=== PATIENT | female | born 1960 | race Caucasian/White ===

== ENCOUNTER 2018-09-22 16:27 | Inpatient (IN) | payer BC ==
[~2018-09-22 16:27] MED LIST: DEXAMETHASONE SOD PHOSPHATE INJ 4 MG/1 ML VIAL ONE; ONDANSETRON HCL INJ/PF 4 MG/2 ML SDV ONE; SUCCINYLCHOLINE CHLORIDE INJ 200 MG/10 ML VIAL ONE
[2018-09-22] MEDS ORDERED: NORMAL SALINE 1000 ML 1,000 ML IV ONE (18:43)
[2018-09-22] MEDS ORDERED: ACETAMINOPHEN 325 MG TABLET PO ONE (18:43)
--- NOTE | 2018-09-22 18:46 | ER Document Report ---
ED Medical Screen (RME) - General Chief Complaint: Hand Swelling Stated Complaint: PAIN, SWELLING,REDNESS/BOTH HANDS Time Seen by Provider: 09/22/18 18:43 Mode of Arrival: Ambulatory Information source: Patient Notes: Patient presents with bilateral hand pain swelling and erythema. Patient is currently being treated as an inpatient at the [facility]. Patient states that 4 days ago she took a needle and tahir up water and dirt that was in the bathtub mixed a solution and injected into bilateral hands. Patient reports fever of 101 yesterday. Patient was placed on Bactrim and has had 3 doses of the medication thus far. I have greeted and performed a rapid initial assessment of this patient. A comprehensive ED assessment and evaluation of the patient, analysis of test results and completion of the medical decision making process will be conducted by additional ED providers. TRAVEL OUTSIDE OF THE [place] IN LAST 30 DAYS: No - Related Data Allergies/Adverse Reactions: No Known Allergies Allergy (Unverified 09/22/18 16:29) Physical Exam - Vital signs Vitals: Temp Pulse Resp BP Pulse Ox 99.5 F 117 H 20 137/91 H 100 09/22/18 16:32 09/22/18 16:32 09/22/18 16:32 09/22/18 16:32 09/22/18 16:32 - Extremities General upper extremity: Edema - Bilateral hand pain and swelling with erythema and fluctuant abscess to dorsal aspect of both hands. Course - Vital Signs Vital signs: Temp Pulse Resp BP Pulse Ox 99.5 F 117 H 20 137/91 H 100 09/22/18 16:32 09/22/18 16:32 09/22/18 16:32 09/22/18 16:32 09/22/18 16:32
[2018-09-22 19:16] LABS: ABSOLUTE BASOPHILS # (AUTO) 0.1 10^3/uL (0.0-0.2); ABSOLUTE EOSINOPHILS # (AUTO) 0.1 10^3/uL (0.0-0.6); ABSOLUTE LYMPHOCYTES (AUTO) 1.4 10^3/uL (0.5-4.7); ABSOLUTE MONOCYTES (AUTO) 1.2 10^3/uL (0.1-1.4); ABSOLUTE NEUT (AUTO) 11.8 10^3/uL (1.7-8.2); BASOPHILS % (AUTO) 0.6 % (0-2); EOSINOPHILS % (AUTO) 0.5 % (0-6); HEMATOCRIT 43.7 % (36.0-47.0); LYMPHOCYTES % (AUTO) 9.6 % (13-45); MEAN CORPUSCULAR HGB CONC 34.3 g/dL (32.0-36.0); MEAN CORPUSCULAR VOLUME 82 fl (80-97); MONOCYTES % (AUTO) 8.5 % (3-13); PLATELET COUNT 325 10^3/uL (150-450); RED BLOOD COUNT 5.36 10^6/uL (3.72-5.28); RED CELL DISTRIBUTION WIDTH 15.5 % (11.5-14.0); SEGMENTED NEUTROPHILS % (AUTO) 80.8 % (42-78); TOTAL CELLS COUNTED % (AUTO) 100 %; WHITE BLOOD COUNT 14.7 10^3/uL (4.0-10.5)
[2018-09-22 19:38] LABS: ANION GAP 15 (5-19); BLOOD UREA NITROGEN 16 mg/dL (7-20); CALCIUM 9.7 mg/dL (8.4-10.2); CARBON DIOXIDE 30 mmol/L (22-30); CHLORIDE 89 mmol/L (98-107); GLUCOSE 146 mg/dL (75-110); SODIUM 133.8 mmol/L (137-145)
[2018-09-22] MEDS ORDERED: POTASSIUM CHLORIDE 20 MEQ PACKET PO ONE (19:42)
--- NOTE | 2018-09-22 20:44 | ER Document Report ---
ED General - General Chief Complaint: Hand Swelling Stated Complaint: PAIN, SWELLING,REDNESS/BOTH HANDS Time Seen by Provider: 09/22/18 18:43 Mode of Arrival: Ambulatory Information source: Patient TRAVEL OUTSIDE OF THE [place] IN LAST 30 DAYS: No - HPI Patient complains to provider of: Bilateral hand infections Onset: Other - 4 nights ago Onset/Duration: Constant, Worse Quality of pain: Sharp, Throbbing Severity: Severe Pain Level: 4 Associated symptoms: Fever Exacerbated by: Movement Relieved by: Denies Similar symptoms previously: No Recently seen / treated by doctor: No Notes: 58-year-old female intentionally tried to inject herself to the hands with a concoction of tap water and soap scum because she wanted to come to the hospital. She states that she did not do it to kill herself. Dates that she has done this in the past. States that she did this 4 days ago and now has a fever and worsening redness and swelling in her hands - Related Data Allergies/Adverse Reactions: No Known Allergies Allergy (Unverified 09/22/18 16:29) Past Medical History - General Information source: Patient - Social History Smoking Status: Never Smoker Family History: Reviewed & Not Pertinent Review of Systems - Review of Systems Notes: Constitutional: Positive for fevers and chills EENT: No eye redness. No eye pain. No ear pain. No sore throat. Cardiovascular: No chest pain. No palpitations. Respiratory: No cough. No shortness of breath. No respiratory distress. Gastrointestinal: No abdominal pain. No nausea, vomiting, or diarrhea. Genitourinary: Atraumatic. No lesions. No pain. No discharge. Musculoskeletal: Positive for redness swelling and pain of the bilateral hands Skin: No rash or lesions. Lymphatic: No swollen lymph nodes. Neurologic: No headache. No syncope. Psychiatric: No suicidal or homicidal ideation. Physical Exam - Vital signs Vitals: Temp Pulse Resp BP Pulse Ox 99.5 F 117 H 20 137/91 H 100 09/22/18 16:32 09/22/18 16:32 09/22/18 16:32 09/22/18 16:32 09/22/18 16:32 - Notes Notes: General: Well-developed, well-nourished. In no acute distress. Non-toxic kemal earing. Cardiac: Well-perfused. Regular rate and rhythm. No murmurs, rubs, or gallops. Pulmonary: No respiratory distress. No cyanosis. Bilateral lung fiels are clear to auscultation. Abdominal: Non-distended. Non-rigid. Bowels sounds are present in all four quadrants. No guarding or rebound. HEENT: Head is atraumatic. Conjunctivae not reddened. No tearing. PERRL. EOMI. Orbits atraumatic. No periorbital swelling or erythema. Oropharynx is without erythema, swelling, or exudates. Neck: Supple. No adenopathy. No meningismus. Dermatologic: Warm with good turgor. No rash. Atraumatic. Chest: Atraumatic. No chest wall tenderness to palpation. Musculoskeletal: Bilateral hands with redness and swelling especially to the dorsal aspects. Fluctuant blister-like lesions to the dorsum of the right and left hands. Extensive swelling bilaterally. Distal neurovascular exam is intact Genitourinary: Examination deferred Neurologic: No gross neurologic deficits. Psychiatric: Normal mood. Course - Re-evaluation Re-evalutation: 09/22/18 21:[address] Cantu would like to make sure the patient does not have te nosynovitis or need surgery. He wants an MRI done or Ortho to see her to confirm this is not an immediate surgical case before he will admit. 09/22/18 23:11 Patient has been seen by Dr. knott. He has communicated to the hospitalist that he believes this is an abscess and cellulitis. It does sound like the patient will go to the operating room tomorrow to be cleaned out. I spoke with Dr. Cantu and the communication was received from the orthopod and he has accepted the admission. - Vital Signs Vital signs: Temp Pulse Resp BP Pulse Ox 99.5 F 117 H 20 137/91 H 100 09/22/18 16:32 09/22/18 16:32 09/22/18 16:32 09/22/18 16:32 09/22/18 16:32 - Laboratory Result Diagrams: 09/22/18 18:57 09/22/18 18:57 Laboratory results interpreted by me: 09/22/18 09/22/18 18:57 18:57 WBC 14.7 H RBC 5.36 H RDW 15.5 H Seg Neutrophils % 80.8 H Lymphocytes % 9.6 L Absolute Neutrophils 11.8 H Sodium 133.8 L Potassium 3.0 L* Chloride 89 L Glucose 146 H - Consults dr knott Time consulted: 21:10 Reason for consultation: 09/22/18 21:10 bilat hand infection Consulted provider: will come to ER Procedures - Incision and Drainage Incision and drainage right hand Time completed: 20:48 Type: Simple Anesthetic type: 1% Lidocaine mL's of anesthetic: 1 Blade size: 16 I&D procedure: Betadine prep applied Incision Method: Incision made by scalpel Amount/type of drainage: Copious yellow and green malodorous Notes: 09/22/18 20:58 Patient tolerated the procedure well. Incision and drainage left hand Type: Simple Anesthetic type: 1% Lidocaine mL's of anesthetic: 1 Blade size: 11 I&D procedure: Shurclens applied Incision Method: Incision made by scalpel Amount/type of drainage: copious Discharge - Discharge Clinical Impression: Hypokalemia, Cellulitis of hand Condition: Good Disposition: ADMITTED INPATIENT Admitting Provider: Pepe (Hospitalist) Unit Admitted: Medical Floor
[2018-09-22] MEDS ORDERED: MORPHINE SULFATE 10 MG/ML INJ IV ONE (21:05)
[2018-09-22] MEDS ORDERED: VANCOMYCIN HCL INJ 1000 MG VIAL IV ONE (21:05)
[2018-09-22] MEDS ORDERED: PIPERACILLIN/TAZOBACTAM 3.375 GM VIAL IV ONE (21:05)
[2018-09-22] MEDS ORDERED: ONDANSETRON HCL INJ/PF 4 MG/2 ML SDV IV ONE (21:06)
[2018-09-22] MEDS ORDERED: IPRATROPIUM/ALBUTEROL 0.5-2.5 MG/3 ML AMPUL NEB PRN (22:36)
[2018-09-22] MEDS ORDERED: ACETAMINOPHEN 325 MG TABLET PO PRN (22:36)
[2018-09-22] MEDS ORDERED: MAG HYDROX/AL HYDROX/SIMETH SUSP 30 ML UDCUP PO PRN (22:36)
--- NOTE | 2018-09-22 22:43 | PDOC CONSULTATION ---
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 She was seen by her primary care physician who was concerned about suicidal ideation and patient harming herself. She was admitted to the psychiatric facility but had increasing redness and swelling and pain in her hands. She noted a fever along with chills at the facility. She states it has worsened since yesterday. She also has noticed drainage with a foul odor. Patient notes history of diabetes and most recent A1c was 6.8. Pain 4/5 Past Medical History Cardiac Medical History: Reports: Hypertension Endocrine Medical History: Reports: Diabetes Mellitus Type 2 GI Medical History: Reports: Gastroesophageal Reflux Disease Psychiatric Medical History: Reports: Depression - anxiety Past Surgical History Past Surgical History: Reports: Tonsillectomy Social History Smoking Status: Never Smoker Family History Family History: Reviewed & Not Pertinent Parental Family History Reviewed: No Children Family History Reviewed: No Sibling(s) Family History Reviewed.: No Medication/Allergy Allergies/Adverse Reactions: No Known Allergies Allergy (Unverified 09/22/18 16:29) Review of Systems Constitutional: PRESENT: chills, fever(s). ABSENT: headache(s), weight gain, weight loss Eyes: ABSENT: visual disturbances Ears: ABSENT: hearing changes Cardiovascular: ABSENT: chest pain, dyspnea on exertion, edema, orthropnea, palpitations Respiratory: ABSENT: cough, hemoptysis Gastrointestinal: ABSENT: abdominal pain, constipation, diarrhea, hematemesis, hematochezia, nausea, vomiting Genitourinary: ABSENT: dysuria, hematuria Musculoskeletal: PRESENT: as per HPI Integumentary: ABSENT: rash, wounds Neurological: ABSENT: abnormal gait, abnormal speech, confusion, dizziness, focal weakness, syncope Psychiatric: PRESENT: depression, suicidal ideation. ABSENT: anxiety, homidical ideation Endocrine: ABSENT: cold intolerance, heat intolerance, menstrual abnormalities, polydipsia, polyuria Hematologic/Lymphatic: ABSENT: easy bleeding, easy bruising, lymphadenopathy Physical Exam Vital Signs: Temp Pulse Resp BP Pulse Ox 99.5 F 117 H 20 137/91 H 100 09/22/18 16:32 09/22/18 16:32 09/22/18 16:32 09/22/18 16:32 09/22/18 16:32 Intake & Output 09/21/18 09/22/18 09/23/18 06:59 06:59 06:59 Intake Total 1000 Balance 1000 Weight 61.8 kg General appearance: PRESENT: no acute distress, well-developed, well-nourished Head exam: PRESENT: atraumatic, normocephalic Eye exam: PRESENT: conjunctiva pink. ABSENT: scleral icterus Ear exam: PRESENT: normal external ear exam Mouth exam: PRESENT: moist, tongue midline Neck exam: PRESENT: full ROM. ABSENT: carotid bruit, JVD, lymphadenopathy, thyromegaly Respiratory exam: PRESENT: unlabored Cardiovascular exam: PRESENT: RRR. ABSENT: diastolic murmur, rubs, systolic murmur Pulses: PRESENT: normal dorsalis pedis pul, +2 pedal pulses bilateral Vascular exam: PRESENT: normal capillary refill GI/Abdominal exam: ABSENT: distended, guarding, mass, organolmegaly, rebound, tenderness Rectal exam: PRESENT: deferred Musculoskeletal exam: PRESENT: other - Right hand: Erythema swelling and fluctuance on the dorsum of the hand. Demarcation of the erythema along the mid forearm no evidence of erythema past the demarcation. No tenderness volarly or along the flexor sheath of the digits. Small dorsal wound along the hand able to express cloudy appearing fluid with foul smell. No pain with wrist range of motion. Intact flexion of the IP/MP joints. EPL/FPL intact. Cap refill less than 2 seconds normal skin turgor Left wrist: Swelling and erythema along the dorsum of the hand small wound dorsally able to express cloudy appearing fluid with foul odor. No pain with wrist range of motion. Intact IP/MP joint flexion. No tenderness along the flexor sheath. Demarcation of the erythema on the wrist flexion crease no evidence of erythema past demarcation. Cap refill less than 2 seconds. Normal skin turgor Neurological exam: PRESENT: alert, awake, oriented to person, oriented to place, oriented to time, oriented to situation, CN II-XII grossly intact. ABSENT: motor sensory deficit Psychiatric exam: PRESENT: flat affect, normal mood, suicidal ideation. ABSENT: homicidal ideation Skin exam: PRESENT: dry, intact, warm. ABSENT: cyanosis, rash Results Laboratory Results: 09/22/18 18:57 09/22/18 18:57 09/22/18 09/22/18 09/22/18 18:57 18:57 18:57 WBC 14.7 H RBC 5.36 H Hgb 15.0 Hct 43.7 MCV 82 MCH 28.0 MCHC 34.3 RDW 15.5 H Plt Count 325 Seg Neutrophils % 80.8 H Lymphocytes % 9.6 L Monocytes % 8.5 Eosinophils % 0.5 Basophils % 0.6 Absolute Neutrophils 11.8 H Absolute Lymphocytes 1.4 Absolute Monocytes 1.2 Absolute Eosinophils 0.1 Absolute Basophils 0.1 Sodium 133.8 L Potassium 3.0 L* Chloride 89 L Carbon Dioxide 30 Anion Gap 15 BUN 16 Creatinine 0.73 Est GFR ( Amer) > 60 Est GFR (Non-Af Amer) > 60 Glucose 146 H Calcium 9.7 Magnesium 1.8 Assessment & Plan - Diagnosis (1) Abscess of dorsum of left hand Is this a current diagnosis for this admission?: Yes Plan: Patient has bilateral dorsal hand abscesses secondary to injection injury there is no evidence of skin compromise however I do feel patient will likely require operative irrigation debridement. Cultures were obtained in the emergency room. At this point I discussed the case with the hospitalist given the injury and patient's history of diabetes she certainly at high risk of worsening infection resulting in bacteremia or systemic effects including possible endocarditis. Plan will be patient should be started on aerobic and anaerobic IV antibiotics we will set the patient up for operative intervention which includes irrigation debridement bilateral hands. Risks and benefits have been explained plan will be proceed with operative intervention within 24 hours. (2) Abscess of dorsum of right hand Is this a current diagnosis for this admission?: Yes
[2018-09-22] MEDS ORDERED: NORMAL SALINE 1000 ML 1,000 ML IV PRN (22:45)
[2018-09-22] MEDS ORDERED: VANCOMYCIN HCL 0 MG in DEXTROSE 5%-WATER 250 ML IV NR (23:00)
[2018-09-22] MEDS ORDERED: PIPERACILLIN/TAZOBACTAM 4.5 GM VIAL IV PRN (23:22)
[2018-09-23 01:39] LABS: URINE AMPHETAMINES SCREEN NEGATIVE; URINE BARBITURATES SCREEN NEGATIVE; URINE BENZODIAZEPINES SCREEN UNCONFIRMED POSITIVE; URINE COCAINE SCREEN NEGATIVE; URINE MARIJUANA (THC) SCREEN NEGATIVE; URINE METHADONE SCREEN NEGATIVE; URINE PHENCYCLIDINE SCREEN NEGATIVE
[2018-09-23] MEDS ORDERED: PIPERACILLIN/TAZOBACTAM 4.5 GM VIAL IV ONE (03:46)
[2018-09-23] MEDS: PIPERACILLIN SODIUM/TAZOBACTAM 4.5 GM in NORMAL SALINE 100 ML IV SCH ×4 (04:05→21:12)
[2018-09-23 04:38] LABS: ABSOLUTE EOSINOPHILS # (AUTO) 0.1 10^3/uL (0.0-0.6); ABSOLUTE LYMPHOCYTES (AUTO) 1.2 10^3/uL (0.5-4.7); ABSOLUTE MONOCYTES (AUTO) 0.9 10^3/uL (0.1-1.4); ABSOLUTE NEUT (AUTO) 6.8 10^3/uL (1.7-8.2); BASOPHILS % (AUTO) 0.5 % (0-2); EOSINOPHILS % (AUTO) 1.4 % (0-6); HEMATOCRIT 35.1 % (36.0-47.0); LYMPHOCYTES % (AUTO) 13.5 % (13-45); MEAN CORPUSCULAR HEMOGLOBIN 27.9 pg (27.0-33.4); MEAN CORPUSCULAR HGB CONC 33.8 g/dL (32.0-36.0); MEAN CORPUSCULAR VOLUME 82 fl (80-97); MONOCYTES % (AUTO) 9.7 % (3-13); PLATELET COUNT 237 10^3/uL (150-450); RED BLOOD COUNT 4.27 10^6/uL (3.72-5.28); RED CELL DISTRIBUTION WIDTH 15.2 % (11.5-14.0); SEGMENTED NEUTROPHILS % (AUTO) 74.9 % (42-78); TOTAL CELLS COUNTED % (AUTO) 100 %; WHITE BLOOD COUNT 9.1 10^3/uL (4.0-10.5)
[2018-09-23 04:43] LABS: HEMOGLOBIN 11.9 g/dL (12.0-15.5)
[2018-09-23 05:00] LABS: ANION GAP 7 (5-19); BLOOD UREA NITROGEN 14 mg/dL (7-20); CARBON DIOXIDE 30 mmol/L (22-30); CHLORIDE 100 mmol/L (98-107); GLUCOSE 89 mg/dL (75-110); POTASSIUM 3.2 mmol/L (3.6-5.0); SODIUM 136.9 mmol/L (137-145)
--- NOTE | 2018-09-23 05:13 | PDOC H&P ---
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 Patient admits intentional injection to the hands with a concoction of tap water and soaps 4 days ago. She denies suicide intent but admits previous episode. She has subsequently developed market swelling of the hands bilaterally with erythema and fluctuant discharge from the injection site. Labs reveal leukocytosis, hypokalemia and urine drug screen positive for opiates and benzodiazepine. She is seen by orthopedic surgery recommending OR debridement and IV antibiotics. Past Medical History Cardiac Medical History: Reports: Hypertension Endocrine Medical History: Reports: Diabetes Mellitus Type 2 GI Medical History: Reports: Gastroesophageal Reflux Disease Psychiatric Medical History: Reports: Depression - anxiety Past Surgical History Past Surgical History: Reports: Tonsillectomy Social History Information Source: Patient Lives with: Family Smoking Status: Never Smoker Frequency of Alcohol Use: None Drugs: None - Advance Directive Resuscitation Status: Full Code Family History Family History: Hypertension Parental Family History Reviewed: Yes Children Family History Reviewed: Yes Sibling(s) Family History Reviewed.: Yes Medication/Allergy Allergies/Adverse Reactions: No Known Allergies Allergy (Unverified 09/22/18 16:29) Review of Systems Constitutional: ABSENT: chills, fever(s), headache(s), weight gain, weight loss Eyes: ABSENT: visual disturbances Ears: ABSENT: hearing changes Cardiovascular: ABSENT: chest pain, dyspnea on exertion, edema, orthropnea, palpitations Respiratory: ABSENT: cough, hemoptysis Gastrointestinal: ABSENT: abdominal pain, constipation, diarrhea, hematemesis, hematochezia, nausea, vomiting Genitourinary: ABSENT: dysuria, hematuria Musculoskeletal: ABSENT: joint swelling Integumentary: ABSENT: rash, wounds Neurological: ABSENT: abnormal gait, abnormal speech, confusion, dizziness, focal weakness, syncope Psychiatric: ABSENT: anxiety, depression, homidical ideation, suicidal ideation Endocrine: ABSENT: cold intolerance, heat intolerance, polydipsia, polyuria Hematologic/Lymphatic: ABSENT: easy bleeding, easy bruising Physical Exam Vital Signs: Temp Pulse Resp BP Pulse Ox 99.1 F 87 20 141/83 H 100 09/23/18 04:46 09/23/18 04:46 09/23/18 04:46 09/23/18 04:46 09/23/18 04:46 Intake & Output 09/21/18 09/22/18 09/23/18 11:59 11:59 11:59 Intake Total 1000 Balance 1000 Weight 61.8 kg General appearance: PRESENT: cooperative, mild distress, well-developed, well- nourished Head exam: PRESENT: atraumatic, normocephalic Eye exam: PRESENT: conjunctiva pink, EOMI, PERRLA. ABSENT: scleral icterus Ear exam: PRESENT: normal external ear exam Mouth exam: PRESENT: moist, tongue midline Neck exam: ABSENT: carotid bruit, JVD, lymphadenopathy, thyromegaly Respiratory exam: PRESENT: clear to auscultation tania. ABSENT: rales, rhonchi, wheezes Cardiovascular exam: PRESENT: RRR. ABSENT: diastolic murmur, rubs, systolic murmur Pulses: PRESENT: normal dorsalis pedis pul Vascular exam: PRESENT: normal capillary refill GI/Abdominal exam: PRESENT: normal bowel sounds, soft. ABSENT: distended, guarding, mass, organolmegaly, rebound, tenderness Rectal exam: PRESENT: deferred Extremities exam: PRESENT: full ROM, +2 edema - Hands bilaterally. ABSENT: calf tenderness, clubbing, pedal edema Back of Hands Image: 1 - 1 x 1 cm indurated ulcer with fluctuance 2 - 1 x 1 cm indurated ulcer with fluctuance Neurological exam: PRESENT: alert, awake, oriented to person, oriented to place, oriented to time, oriented to situation, CN II-XII grossly intact. ABSENT: motor sensory deficit Psychiatric exam: PRESENT: appropriate affect, normal mood. ABSENT: homicidal ideation, suicidal ideation Skin exam: PRESENT: dry, erythema, warm, other - Hands with bilateral 1 x 1 cm indurated ulcerated fluctuance with surrounding erythema and 2+ edema.. ABSENT: cyanosis, intact, rash Results Laboratory Results: 09/23/18 03:50 09/22/18 09/22/18 09/22/18 18:57 18:57 18:57 WBC 14.7 H RBC 5.36 H Hgb 15.0 Hct 43.7 MCV 82 MCH 28.0 MCHC 34.3 RDW 15.5 H Plt Count 325 Seg Neutrophils % 80.8 H Lymphocytes % 9.6 L Monocytes % 8.5 Eosinophils % 0.5 Basophils % 0.6 Absolute Neutrophils 11.8 H Absolute Lymphocytes 1.4 Absolute Monocytes 1.2 Absolute Eosinophils 0.1 Absolute Basophils 0.1 Sodium 133.8 L Potassium 3.0 L* Chloride 89 L Carbon Dioxide 30 Anion Gap 15 BUN 16 Creatinine 0.73 Est GFR ( Amer) > 60 Est GFR (Non-Af Amer) > 60 Glucose 146 H Calcium 9.7 Magnesium 1.8 TSH 09/22/18 09/23/18 18:57 03:50 WBC 9.1 RBC 4.27 Hgb 11.9 L D Hct 35.1 L MCV 82 MCH 27.9 MCHC 33.8 RDW 15.2 H Plt Count 237 Seg Neutrophils % 74.9 Lymphocytes % 13.5 Monocytes % 9.7 Eosinophils % 1.4 Basophils % 0.5 Absolute Neutrophils 6.8 Absolute Lymphocytes 1.2 Absolute Monocytes 0.9 Absolute Eosinophils 0.1 Absolute Basophils 0.0 Sodium Potassium Chloride Carbon Dioxide Anion Gap BUN Creatinine Est GFR ( Amer) Est GFR (Non-Af Amer) Glucose Calcium Magnesium TSH 8.73 H Assessment and Plan - Diagnosis (1) Abscess of dorsum of left hand Is this a current diagnosis for this admission?: Yes Plan: Orthopedic consult, empiric antibiotics and symptomatic management with vancomycin, Zosyn, Toradol and Tylenol as needed, follow-up CBC, blood and wound culture (2) Abscess of dorsum of right hand Is this a current diagnosis for this admission?: Yes Plan: Orthopedic consult, empiric antibiotics and symptomatic management with vancomycin, Zosyn, Toradol and Tylenol as needed (3) Hypokalemia Is this a current diagnosis for this admission?: Yes (4) Diabetes Is this a current diagnosis for this admission?: Yes Plan: Obtain outpatient medication reconciliation with pharmacy, Humalog sliding scale as needed (5) Depression Is this a current diagnosis for this admission?: Yes Plan: Mental health consult (6) Self-harming behavior Is this a current diagnosis for this admission?: Yes Plan: Mental health consult
[2018-09-23] MEDS: HEPARIN SOD (PORCINE) 5,000 UNIT/ML 1 ML SYRINGE SUBCUT SCH ×3 (06:28→21:16)
[2018-09-23] MEDS: VANCOMYCIN HCL 750 MG in DEXTROSE 5%-WATER 250 ML IV SCH ×2 (09:18→22:33)
[2018-09-23] MEDS: DOCUSATE SODIUM 100 MG CAPSULE PO SCH ×2 (09:18→18:52)
[2018-09-23 09:27] LABS: FREE T3 3.79 pg/mL (2.77-5.27); FREE T4 (FREE THYROXINE) 2.13 ng/dL (0.78-2.19)
[2018-09-23] MEDS ORDERED: POTASSIUM CHLORIDE 10 MEQ CAPSULE.ER PO ONE (09:30)
[2018-09-23] MEDS ORDERED: BACITRACIN INJ 50,000 UNIT VIAL ONE (12:24)
--- NOTE | 2018-09-23 12:28 | EKG REPORT ---
SEVERITY:- BORDERLINE ECG - SINUS RHYTHM LOW VOLTAGE THROUGHOUT NONSPECIFIC ST-T CHANGES DIFFUSE. : Confirmed by: Anibal Alberto MD 23-Sep-2018 12:27:42
[2018-09-23] MEDS ORDERED: MIDAZOLAM 2 MG/2 ML INJ ONE (14:37)
[2018-09-23] MEDS ORDERED: FENTANYL CITRATE INJ/PF 100 MCG/2 ML AMPUL ONE (14:37)
[2018-09-23] MEDS ORDERED: MORPHINE SULFATE 10 MG/ML INJ ONE (14:38)
[2018-09-23] MEDS ORDERED: PROPOFOL INJ 200 MG/20 ML VIAL IV ONE (14:38)
[2018-09-23] MEDS ORDERED: MORPHINE SULFATE 10 MG/ML INJ IV PRN ×2 (15:13→16:11)
[2018-09-23] MEDS ORDERED: PROMETHAZINE HCL INJ 25 MG/1 ML VIAL IV PRN ×2 (15:13)
[2018-09-23] MEDS ORDERED: FENTANYL CITRATE INJ/PF 100 MCG/2 ML AMPUL IV PRN ×3 (15:13)
[2018-09-23] MEDS ORDERED: MEPERIDINE HCL/PF INJ 25 MG/1 ML DISP.SYRIN IV PRN (15:13)
[2018-09-23] MEDS ORDERED: DIPHENHYDRAMINE HCL 50 MG/ML VIAL IV PRN (15:13)
--- NOTE | 2018-09-23 15:15 | Operative Report ---
Operative Report DATE OF SURGERY: 09/23/18 PREOPERATIVE DIAGNOSIS: Bilateral hand abscess OPERATION: Irrigation debridement bilateral dorsal hand abscess and left volar hand abscess SURGEON: TENA MCDONNELL ANESTHESIA: GA TISSUE REMOVED OR ALTERED: Cultures x2 to microbiology ESTIMATED BLOOD LOSS: 50 PROCEDURE: With the patient supine Afrin table bilateral upper extremities were prepped and draped in sterile fashion. Beginning on the right side a 5 cm longitudinal incision was made over the fourth dorsal extensor compartment in line with a weeping sinus tract. This leads to the emanation of a modest amount of purulent material. This is sent for culture and sensitivity. The loculations are broken up using a finger and the wound meticulously debrided. Wound is irrigated with bulb lavage. It is packed with iodoform gauze. Is closed with 2 nylon sutures. A sterile compressive dressing is applied. Attention is now turned to the left hand. Similar 5 cm longitudinal incision is made over the dorsum of the fourth extensor compartment and sharp dissection was carried incision into the abscess. This is likewise cultured and sent for culture and sensitivity. Loculations are broken up. Wound is irrigated with bulb lavage. It is packed with iodoform gauze and closed loosely with nylon. Lastly there is a volar radiocarpal abscess. This is debrided likewise with longitudinal incision, debridement, irrigation, and packing with iodoform gauze. Sterile compressive dressing was applied over the left upper extremity. The patient's return to the PACU in satisfactory condition.
--- NOTE | 2018-09-23 16:53 | PSYCHOLOGICAL NOTE ---
Psych Note - Psych Note Date seen by psych provider: 09/23/18 Time seen by psych provider: 13:00 Psych Note: Reason for Consult: Self Harm Consent permissions: Victor M, patient's , (cell) [phone] (home) Clinician was unable to speak to the patient, ass she was taken to OR for surgery on her hands. Patient arrived to [facility] ED from [facility]. Patient was admitted to [facility] voluntarily; however, when it became apparent the patient needed medical attention on her hands, [facility] staff brought her to [facility] ED. She was discharged from that facility; confirmed by [facility] staff when the behavioral health team contacted them. They report that once the patient is medically cleared she is welcomed to return to there facility. Clinician spoke with the patient's who reports the patient has not been working in the last 10 months. 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 He continued to report that over the last 10 months she has been unable to find employment and has become increasingly de pressed. He states that because she has history of 2 malpractice suits she has been unable to find employment. He disclosed to his knowledge the patient has never engaged in self-harm in the past. She disclosed to them that she had fallen; however, when they went to her primary care provider with [facility] she told them the truth. He reports that after speaking at length with her provider, at his insistence, she went to [facility] voluntarily. He reports that the patient has suffered from depression and anxiety since college age however it always seem to be "job-related." 311 (F32.9) unspecified depressive disorder V62.29 (Z56.9) other problems related to employment Impression\\plan: Patient is recommended for IVC. Patient was receiving voluntary input patient psychiatric treatment at [facility] prior to identifying needing medical treatment. Patient has had an increase in depression over the last 10 months and engaged in self-harm. Once medically clear patient will return to [facility] or another psychiatric facility. Patient will be reevaluated. Dr. Mcneal was consulted and the care management of this patient; attending physicians in agreement with recommendations and disposition.
[2018-09-23] MEDS: OXYCODONE-ACETAMINOPHEN 5-325 MG TABLET PO PRN (17:07)
[2018-09-23] MEDS: RINGERS SOLUTION,LACTATED 1,000 ML IV PRN (17:13)
--- NOTE | 2018-09-23 18:31 | PDOC PROGRESS REPORT ---
Subjective Progress Note for:: 09/23/18 Subjective:: The patient was seen in the emergency department while awaiting orthopedic incision and drainage of wounds to bilateral hands. She was sleeping comfortably when I enter the room but did wake easily when I set her name. She tells me that she has minimal pain at present and appreciates the care and attention she is receiving. She does ask that her wound to be addressed as they are weeping foul-smelling serous fluid at this time. She denies fever, chills, body aches, chest pain, palpitations, dyspnea, abdominal pain, nausea vomiting and diarrhea. She has no further questions or concerns at this time but does asked that she be apprised of her culture results as they return. She also asks that her be called to be updated once she is on schedule for the OR. No concerns per nursing. Did discuss with the mental health team; have recommended IVC status. Reason For Visit: DIABETES HAND CELLULITIS BIPOLAR Physical Exam Vital Signs: Temp Pulse Resp BP Pulse Ox 98.0 F 98 14 137/63 H 97 09/23/18 16:20 09/23/18 16:20 09/23/18 16:20 09/23/18 16:20 09/23/18 16:20 Intake & Output 09/22/18 09/23/18 09/24/18 06:59 06:59 06:59 Intake Total 1000 1950 Output Total 805 Balance 1000 1145 Weight 61.8 kg General appearance: PRESENT: no acute distress, cooperative, well-developed, well-nourished Head exam: PRESENT: atraumatic, normocephalic Eye exam: PRESENT: conjunctiva pink, EOMI, PERRLA. ABSENT: scleral icterus Ear exam: PRESENT: normal external ear exam Mouth exam: PRESENT: moist, tongue midline Neck exam: ABSENT: carotid bruit, JVD, lymphadenopathy, thyromegaly Respiratory exam: PRESENT: clear to auscultation tania, symmetrical, unlabored. ABSENT: rales, rhonchi, wheezes Cardiovascular exam: PRESENT: RRR, +S1, +S2. ABSENT: diastolic murmur, rubs, systolic murmur Pulses: PRESENT: normal dorsalis pedis pul Vascular exam: PRESENT: normal capillary refill GI/Abdominal exam: PRESENT: normal bowel sounds, soft. ABSENT: distended, guarding, mass, organolmegaly, rebound, tenderness Rectal exam: PRESENT: deferred Extremities exam: PRESENT: full ROM. ABSENT: calf tenderness, clubbing, pedal edema Neurological exam: PRESENT: alert, awake, oriented to person, oriented to place, oriented to time, oriented to situation, CN II-XII grossly intact. ABSENT: m otor sensory deficit Psychiatric exam: PRESENT: depressed, flat affect, normal mood. ABSENT: homicidal ideation, suicidal ideation Skin exam: PRESENT: dry, erythema, warm, other - The patient is noted to have 1 cm round indurated ulcerations with drainage of purulent fluid to the dorsal aspect of bilateral hands with a similar wound to the anterior aspect of her right wrist. She has significant edema and erythema with lymphangitis (right greater than left); erythema has been marked with a skin marker again this morning.. ABSENT: cyanosis, rash Results Laboratory Results: 09/23/18 03:50 09/23/18 03:50 09/22/18 09/22/18 09/22/18 18:57 18:57 18:57 WBC 14.7 H RBC 5.36 H Hgb 15.0 Hct 43.7 MCV 82 MCH 28.0 MCHC 34.3 RDW 15.5 H Plt Count 325 Seg Neutrophils % 80.8 H Lymphocytes % 9.6 L Monocytes % 8.5 Eosinophils % 0.5 Basophils % 0.6 Absolute Neutrophils 11.8 H Absolute Lymphocytes 1.4 Absolute Monocytes 1.2 Absolute Eosinophils 0.1 Absolute Basophils 0.1 Sodium 133.8 L Potassium 3.0 L* Chloride 89 L Carbon Dioxide 30 Anion Gap 15 BUN 16 Creatinine 0.73 Est GFR ( Amer) > 60 Est GFR (Non-Af Amer) > 60 Glucose 146 H Calcium 9.7 Magnesium 1.8 TSH Free T4 Free T3 pg/mL 09/22/18 09/23/18 09/23/18 18:57 03:50 03:50 WBC 9.1 RBC 4.27 Hgb 11.9 L D Hct 35.1 L MCV 82 MCH 27.9 MCHC 33.8 RDW 15.2 H Plt Count 237 Seg Neutrophils % 74.9 Lymphocytes % 13.5 Monocytes % 9.7 Eosinophils % 1.4 Basophils % 0.5 Absolute Neutrophils 6.8 Absolute Lymphocytes 1.2 Absolute Monocytes 0.9 Absolute Eosinophils 0.1 Absolute Basophils 0.0 Sodium 136.9 L Potassium 3.2 L Chloride 100 Carbon Dioxide 30 Anion Gap 7 BUN 14 Creatinine 0.60 Est GFR ( Amer) > 60 Est GFR (Non-Af Amer) > 60 Glucose 89 Calcium 8.0 L Magnesium TSH 8.73 H Free T4 Free T3 pg/mL 09/23/18 03:50 WBC RBC Hgb Hct MCV MCH MCHC RDW Plt Count Seg Neutrophils % Lymphocytes % Monocytes % Eosinophils % Basophils % Absolute Neutrophils Absolute Lymphocytes Absolute Monocytes Absolute Eosinophils Absolute Basophils Sodium Potassium Chloride Carbon Dioxide Anion Gap BUN Creatinine Est GFR ( Amer) Est GFR (Non-Af Amer) Glucose Calcium Magnesium TSH Free T4 2.13 Free T3 pg/mL 3.79 Assessment and Plan - Diagnosis (1) Abscess of dorsum of left hand Is this a current diagnosis for this admission?: Yes Plan: The patient is admitted to the medical floor. She is empirically been placed on IV Zosyn and vancomycin. Wound and blood cultures are pending. Orthopedics has been consulted; plan for surgical I&D this afternoon. Analgesics as needed. (2) Abscess of dorsum of right hand Is this a current diagnosis for this admission?: Yes Plan: As above. (3) Depression Is this a current diagnosis for this admission?: Yes Plan: Mental health consult has been placed; recommends IVC status. Medications have been reconciled; will resume her home dose Abilify, Klonopin, and melatonin. Will adjust medications per Dr. Mcneal's recommendations. (4) Self-harming behavior Is this a current diagnosis for this admission?: Yes Plan: Mental health consult; have recommended IVC status. One-to-one sitter for safety. (5) Diabetes Qualifiers: Diabetes mellitus type: type 2 Diabetes mellitus senior living insulin use: without intermediate teacher use Is this a current diagnosis for this admission?: Yes Plan: We will hold oral antibiotics while admitted (metformin and Farxiga) She will be advanced to a consistent carb diet postoperatively. Accu-Cheks before meals and at bedtime with Humalog for sliding scale coverage. (6) Hypokalemia Is this a current diagnosis for this admission?: Yes Plan: Potassium is replaced with IV and p.o. today. We will continue monitor daily chemistries and replace as necessary. (7) Hypertension Is this a current diagnosis for this admission?: Yes Plan: Resume home dose of metoprolol. - Time Time Spent with patient: 25-34 minutes Medications reviewed and adjusted accordingly: Yes Anticipated discharge: Other - Inpatient psychiatric facility
[2018-09-23] MEDS: FLUCONAZOLE 100 MG TABLET PO SCH (21:09)
[2018-09-23] MEDS: CLONAZEPAM 1 MG TABLET PO SCH (21:10)
[2018-09-23] MEDS: MELATONIN 3 MG TABLET PO SCH (21:10)
[2018-09-23] MEDS: METOPROLOL TARTRATE 50 MG TABLET PO SCH (21:17)
[2018-09-24] MEDS: OXYCODONE-ACETAMINOPHEN 5-325 MG TABLET PO PRN ×3 (00:44→21:32)
[2018-09-24] MEDS: PIPERACILLIN SODIUM/TAZOBACTAM 4.5 GM in NORMAL SALINE 100 ML IV SCH ×2 (02:23→10:15)
[2018-09-24] MEDS: HEPARIN SOD (PORCINE) 5,000 UNIT/ML 1 ML SYRINGE SUBCUT SCH ×3 (05:10→22:17)
[2018-09-24] MEDS: RINGERS SOLUTION,LACTATED 1,000 ML IV PRN (05:15)
[2018-09-24 06:17] LABS: ABSOLUTE LYMPHOCYTES (AUTO) 0.5 10^3/uL (0.5-4.7); ABSOLUTE MONOCYTES (AUTO) 0.3 10^3/uL (0.1-1.4); BASOPHILS % (AUTO) 0.1 % (0-2); HEMATOCRIT 34.2 % (36.0-47.0); HEMOGLOBIN 11.5 g/dL (12.0-15.5); LYMPHOCYTES % (AUTO) 6.9 % (13-45); MEAN CORPUSCULAR HEMOGLOBIN 27.8 pg (27.0-33.4); MEAN CORPUSCULAR HGB CONC 33.6 g/dL (32.0-36.0); MEAN CORPUSCULAR VOLUME 83 fl (80-97); MONOCYTES % (AUTO) 4.9 % (3-13); PLATELET COUNT 255 10^3/uL (150-450); RED BLOOD COUNT 4.13 10^6/uL (3.72-5.28); RED CELL DISTRIBUTION WIDTH 15.5 % (11.5-14.0); SEGMENTED NEUTROPHILS % (AUTO) 88.1 % (42-78); TOTAL CELLS COUNTED % (AUTO) 100 %; WHITE BLOOD COUNT 6.8 10^3/uL (4.0-10.5)
--- NOTE | 2018-09-24 06:35 | PDOC PROGRESS REPORT ---
Subjective Progress Note for:: 09/24/18 Reason For Visit: DIABETES HAND CELLULITIS BIPOLAR 58-year-old white female status post I&D of both hands yesterday. Patient alert oriented and appropriate this morning. Blood cultures growing gram-positive cocci. Intraoperative cultures pending. Physical Exam Vital Signs: Temp Pulse Resp BP Pulse Ox 36.4 C 78 16 111/48 L 96 09/24/18 04:00 09/24/18 04:00 09/23/18 19:14 09/24/18 04:00 09/23/18 23:51 Intake & Output 09/22/18 09/23/18 09/24/18 06:59 06:59 06:59 Intake Total 1000 4400 Output Total 805 Balance 1000 3595 Weight 61.8 kg 65.6 kg General appearance: PRESENT: no acute distress Respiratory exam: PRESENT: unlabored Vascular exam: PRESENT: normal capillary refill Extremities exam: PRESENT: other - Bilateral hand dressings clean dry and intact Results Laboratory Results: 09/24/18 05:10 09/23/18 09/24/18 03:50 05:10 WBC 6.8 RBC 4.13 Hgb 11.5 L Hct 34.2 L MCV 83 MCH 27.8 MCHC 33.6 RDW 15.5 H Plt Count 255 Seg Neutrophils % 88.1 H Lymphocytes % 6.9 L Monocytes % 4.9 Eosinophils % 0.0 Basophils % 0.1 Absolute Neutrophils 6.0 Absolute Lymphocytes 0.5 Absolute Monocytes 0.3 Absolute Eosinophils 0.0 Absolute Basophils 0.0 Free T4 2.13 Free T3 pg/mL 3.79 Status: Imported from PACS Assessment & Plan - Diagnosis (1) Abscess of dorsum of left hand Is this a current diagnosis for this admission?: Yes Plan: Specialist status post I&D. Currently on vancomycin and Rocephin. Antibiotics can be tailored once culture results are available. (2) Abscess of dorsum of right hand Is this a current diagnosis for this admission?: Yes Plan: As above (3) Cellulitis of hand Is this a current diagnosis for this admission?: Yes Plan: As above - Time Time Spent with patient: 15-24 minutes Anticipated discharge: Other Within: Other
[2018-09-24 06:44] LABS: ANION GAP 9 (5-19); BLOOD UREA NITROGEN 12 mg/dL (7-20); CALCIUM 8.1 mg/dL (8.4-10.2); CARBON DIOXIDE 21 mmol/L (22-30); CHLORIDE 104 mmol/L (98-107); GLUCOSE 143 mg/dL (75-110); POTASSIUM 4.2 mmol/L (3.6-5.0); SODIUM 134.1 mmol/L (137-145)
[2018-09-24] MEDS ORDERED: (PENDING PHARMACY ID) (Aripiprazole [Abilify 10 Mg Tablet] 10 MG) PO SCH (10:00)
[2018-09-24] MEDS: METOPROLOL TARTRATE 50 MG TABLET PO SCH ×2 (10:14→21:31)
[2018-09-24] MEDS: DOCUSATE SODIUM 100 MG CAPSULE PO SCH ×2 (10:15→17:39)
[2018-09-24] MEDS: CLONAZEPAM 1 MG TABLET PO SCH ×2 (10:15→21:31)
[2018-09-24] MEDS: ARIPIPRAZOLE 5 MG TABLET PO SCH (10:15)
[2018-09-24 10:22] LABS: VANCOMYCIN,TROUGH 9.3 ug/mL (5.0-20.0)
[2018-09-24] MEDS ORDERED: DEXTROSE 40% GEL 15 GM TUBE PO PRN ×2 (11:10)
[2018-09-24] MEDS ORDERED: DEXTROSE 50%-WATER 25 GM/50 ML DISP.SYRIN IV PRN ×2 (11:10)
[2018-09-24] MEDS ORDERED: GLUCAGON,HUMAN RECOMB 1 MG INJ IM PRN (11:10)
[2018-09-24] MEDS: PANTOPRAZOLE SODIUM 40 MG TABLET.DR PO SCH (11:53)
[2018-09-24] MEDS: DULOXETINE HCL 30 MG CAPSULE.DR PO SCH (11:53)
[2018-09-24] MEDS: VANCOMYCIN HCL 750 MG in DEXTROSE 5%-WATER 250 ML IV SCH (11:53)
--- NOTE | 2018-09-24 17:03 | PDOC PROGRESS REPORT ---
Subjective Progress Note for:: 09/24/18 Subjective:: Seen resting in bed. She is awake, alert, oriented x3. Her is at the bedside. She denies any chest pain, shortness of breath or dyspnea. She denies any cough. She denies any nausea, vomiting or abdominal pain. She is having pain in both of her hands. She denies any fevers or chills or night. She denies any other significant arthralgias or myalgias. Remaining review of systems are negative. Reason For Visit: DIABETES HAND CELLULITIS BIPOLAR Physical Exam Vital Signs: Temp Pulse Resp BP Pulse Ox 98.2 F 77 14 106/54 L 97 09/24/18 07:53 09/24/18 11:08 09/24/18 11:08 09/24/18 07:53 09/24/18 07:53 Intake & Output 09/23/18 09/24/18 09/25/18 06:59 06:59 06:59 Intake Total 1000 4400 Output Total 805 Balance 1000 3595 Weight 61.8 kg 65.6 kg General appearance: PRESENT: no acute distress, well-developed, well-nourished Head exam: PRESENT: atraumatic, normocephalic Eye exam: PRESENT: conjunctiva pink, EOMI, PERRLA. ABSENT: scleral icterus Ear exam: PRESENT: normal external ear exam Mouth exam: PRESENT: moist, tongue midline Neck exam: ABSENT: carotid bruit, JVD, lymphadenopathy, thyromegaly Respiratory exam: PRESENT: clear to auscultation tania. ABSENT: rales, rhonchi, wheezes Cardiovascular exam: PRESENT: RRR. ABSENT: diastolic murmur, rubs, systolic murmur Pulses: PRESENT: normal dorsalis pedis pul Vascular exam: PRESENT: normal capillary refill GI/Abdominal exam: PRESENT: normal bowel sounds, soft. ABSENT: distended, g uarding, mass, organolmegaly, rebound, tenderness Rectal exam: PRESENT: deferred Extremities exam: PRESENT: full ROM. ABSENT: calf tenderness, clubbing, pedal edema Musculoskeletal exam: PRESENT: ambulatory Neurological exam: PRESENT: alert, awake, oriented to person, oriented to place, oriented to time, oriented to situation, CN II-XII grossly intact. ABSENT: motor sensory deficit Psychiatric exam: PRESENT: appropriate affect Skin exam: PRESENT: dry, warm, other - Both hands are dressed and wrapped with Coban Results Laboratory Results: 09/24/18 05:10 09/24/18 05:10 09/24/18 09/24/18 05:10 05:10 WBC 6.8 RBC 4.13 Hgb 11.5 L Hct 34.2 L MCV 83 MCH 27.8 MCHC 33.6 RDW 15.5 H Plt Count 255 Seg Neutrophils % 88.1 H Lymphocytes % 6.9 L Monocytes % 4.9 Eosinophils % 0.0 Basophils % 0.1 Absolute Neutrophils 6.0 Absolute Lymphocytes 0.5 Absolute Monocytes 0.3 Absolute Eosinophils 0.0 Absolute Basophils 0.0 Sodium 134.1 L Potassium 4.2 Chloride 104 Carbon Dioxide 21 L Anion Gap 9 BUN 12 Creatinine 0.48 L Est GFR ( Amer) > 60 Est GFR (Non-Af Amer) > 60 Glucose 143 H Calcium 8.1 L Assessment and Plan - Diagnosis (1) Gram-positive cocci bacteremia Is this a current diagnosis for this admission?: Yes Plan: Patient had gram-positive cocci in 1 bottle. Culture grew Peptostreptococcus. Wound cultures grew the same. She did admit to injecting tap water into both hands for attention seeking behavior did de-escalate IV antibiotics to Unasyn 3 g every 6 IV. Will repeat blood cultures tomorrow morning (2) Abscess of dorsum of left hand Is this a current diagnosis for this admission?: Yes Plan: The patient is admitted to the medical floor patient was placed on broad- spectrum IV antibiotics after blood cultures were obtained. Orthopedic surgery was consulted. Dr. Cherry saw the patient consults her to the OR yesterday afternoon for incision and drainage of both hand wounds. Analgesics as needed. (3) Abscess of dorsum of right hand Is this a current diagnosis for this admission?: Yes Plan: As above. (4) Depression Is this a current diagnosis for this admission?: Yes Plan: Mental health consult has been placed; recommends IVC status. Medications have been reconciled; will resume her home dose Abilify, Klonopin, and melatonin. Will adjust medications per Dr. Mcneal's recommendations. (5) Diabetes Qualifiers: Diabetes mellitus type: type 2 Diabetes mellitus manager long term care insulin use: without manager long term care use Is this a current diagnosis for this admission?: Yes Plan: We will hold metformin and Toujeo Accu-Cheks before meals and at bedtime with Humalog for sliding scale coverage. We will restart her Lantus once her glucose increases. (6) Hypertension Is this a current diagnosis for this admission?: Yes Plan: Resume home dose of metoprolol. (7) Hypokalemia Is this a current diagnosis for this admission?: Yes Plan: Replete and monitor (8) Self-harming behavior Is this a current diagnosis for this admission?: Yes Plan: Mental health consult; have recommended IVC status. One-to-one sitter for safety. - Time Time Spent with patient: 25-34 minutes Total Critical Time (Minutes): 25 Medications reviewed and adjusted accordingly: Yes
[2018-09-24] MEDS: INSULIN LISPRO 100 UNIT/ML 3 ML VIAL SUBCUT SCH ×2 (17:39→21:34)
[2018-09-24] MEDS: AMPICILLIN SODIUM/SULBACTAM NA 3 GM in NORMAL SALINE 100 ML IV SCH ×2 (17:39→23:49)
[2018-09-24] MEDS: FLUCONAZOLE 100 MG TABLET PO SCH (21:31)
[2018-09-24] MEDS: MELATONIN 3 MG TABLET PO SCH (21:31)
[2018-09-24] MEDS: ZOLPIDEM TARTRATE 5 MG TABLET PO SCH (21:32)
[2018-09-24] MEDS ORDERED: (PENDING PHARMACY ID) (Zolpidem Tartrate [Ambien] 10 MG) PO SCH (22:00)
[2018-09-25] MEDS: AMPICILLIN SODIUM/SULBACTAM NA 3 GM in NORMAL SALINE 100 ML IV SCH ×3 (05:41→17:17)
[2018-09-25] MEDS: HEPARIN SOD (PORCINE) 5,000 UNIT/ML 1 ML SYRINGE SUBCUT SCH ×3 (05:41→22:43)
--- NOTE | 2018-09-25 06:03 | PDOC PROGRESS REPORT ---
Subjective Progress Note for:: 09/25/18 Reason For Visit: DIABETES HAND CELLULITIS BIPOLAR 58-year-old white female status post I&D of bilateral upper extremity abscesses. Microbiology is polymicrobial. Physical Exam Vital Signs: Temp Pulse Resp BP Pulse Ox 36.7 C 63 16 112/57 L 97 09/24/18 23:34 09/24/18 23:34 09/24/18 23:34 09/24/18 23:34 09/24/18 23:34 Intake & Output 09/23/18 09/24/18 09/25/18 06:59 06:59 06:59 Intake Total 1000 4400 2684 Output Total 805 Balance 1000 3595 2684 Weight 61.8 kg 65.6 kg 67.2 kg Physical Exam: Sleeping soundly Extremities exam: PRESENT: other - Bilateral hands are wrapped in compressive dressings which remain clean dry and intact. There is brisk capillary refill to each of the hands. Results Laboratory Results: 09/24/18 05:10 09/24/18 05:10 09/24/18 09/24/18 05:10 05:10 WBC 6.8 RBC 4.13 Hgb 11.5 L Hct 34.2 L MCV 83 MCH 27.8 MCHC 33.6 RDW 15.5 H Plt Count 255 Seg Neutrophils % 88.1 H Lymphocytes % 6.9 L Monocytes % 4.9 Eosinophils % 0.0 Basophils % 0.1 Absolute Neutrophils 6.0 Absolute Lymphocytes 0.5 Absolute Monocytes 0.3 Absolute Eosinophils 0.0 Absolute Basophils 0.0 Sodium 134.1 L Potassium 4.2 Chloride 104 Carbon Dioxide 21 L Anion Gap 9 BUN 12 Creatinine 0.48 L Est GFR ( Amer) > 60 Est GFR (Non-Af Amer) > 60 Glucose 143 H Calcium 8.1 L 09/22/18 20:48 Blood Blood Culture - Final Peptostreptococcus Species No Aerobic Organisms 09/22/18 20:28 Hand - Abscess Gram Stain - Final 09/22/18 20:28 Hand - Abscess Wound Culture - Final Group G Beta Streptococcus Prevotella Species Skin Shazia Assessment & Plan - Diagnosis (1) Abscess of dorsum of left hand Is this a current diagnosis for this admission?: Yes Plan: Nursing to perform dressing changes and begin to advance the packing from the wounds. Continue broad-spectrum antibiotic therapy until specific pathogens have been identified. (2) Abscess of dorsum of right hand Is this a current diagnosis for this admission?: Yes Plan: As above (3) Cellulitis of hand Is this a current diagnosis for this admission?: Yes Plan: As above
[2018-09-25] MEDS: OXYCODONE-ACETAMINOPHEN 5-325 MG TABLET PO PRN ×2 (06:55→22:37)
[2018-09-25 07:30] LABS: ABSOLUTE EOSINOPHILS # (AUTO) 0.2 10^3/uL (0.0-0.6); ABSOLUTE LYMPHOCYTES (AUTO) 2.3 10^3/uL (0.5-4.7); ABSOLUTE MONOCYTES (AUTO) 0.7 10^3/uL (0.1-1.4); ABSOLUTE NEUT (AUTO) 4.3 10^3/uL (1.7-8.2); BASOPHILS % (AUTO) 0.6 % (0-2); EOSINOPHILS % (AUTO) 2.3 % (0-6); HEMATOCRIT 34.3 % (36.0-47.0); HEMOGLOBIN 11.4 g/dL (12.0-15.5); LYMPHOCYTES % (AUTO) 30.4 % (13-45); MEAN CORPUSCULAR HEMOGLOBIN 27.6 pg (27.0-33.4); MEAN CORPUSCULAR HGB CONC 33.2 g/dL (32.0-36.0); MEAN CORPUSCULAR VOLUME 83 fl (80-97); MONOCYTES % (AUTO) 8.8 % (3-13); PLATELET COUNT 340 10^3/uL (150-450); RED BLOOD COUNT 4.13 10^6/uL (3.72-5.28); RED CELL DISTRIBUTION WIDTH 15.7 % (11.5-14.0); SEGMENTED NEUTROPHILS % (AUTO) 57.9 % (42-78); TOTAL CELLS COUNTED % (AUTO) 100 %; WHITE BLOOD COUNT 7.4 10^3/uL (4.0-10.5)
[2018-09-25 07:55] LABS: ANION GAP 11 (5-19); BLOOD UREA NITROGEN 10 mg/dL (7-20); CALCIUM 8.5 mg/dL (8.4-10.2); CARBON DIOXIDE 24 mmol/L (22-30); CHLORIDE 106 mmol/L (98-107); GLUCOSE 96 mg/dL (75-110); POTASSIUM 3.9 mmol/L (3.6-5.0); SODIUM 141.2 mmol/L (137-145)
[2018-09-25] MEDS: INSULIN LISPRO 100 UNIT/ML 3 ML VIAL SUBCUT SCH ×4 (09:03→22:43)
[2018-09-25] MEDS: DULOXETINE HCL 30 MG CAPSULE.DR PO SCH (09:06)
[2018-09-25] MEDS: PANTOPRAZOLE SODIUM 40 MG TABLET.DR PO SCH (09:06)
[2018-09-25] MEDS: DOCUSATE SODIUM 100 MG CAPSULE PO SCH ×2 (09:07→17:16)
[2018-09-25] MEDS: CLONAZEPAM 1 MG TABLET PO SCH ×2 (09:07→22:41)
[2018-09-25] MEDS: ARIPIPRAZOLE 5 MG TABLET PO SCH (09:07)
[2018-09-25] MEDS: METOPROLOL TARTRATE 50 MG TABLET PO SCH ×2 (09:08→22:41)
--- NOTE | 2018-09-25 17:21 | PDOC PROGRESS REPORT ---
Subjective Progress Note for:: 09/25/18 Subjective:: Patient is seen resting in bed. She is awake, alert, oriented x3. She denies any chest pain, shortness of breath or dyspnea. She denies any cough. She denies any nausea, vomiting or abdominal pain. She is having moderate pain in both of her hands. She denies any fevers or chills or night. She denies any other significant arthralgias or myalgias. Remaining review of systems are negative. Reason For Visit: DIABETES HAND CELLULITIS BIPOLAR Physical Exam Vital Signs: Temp Pulse Resp BP Pulse Ox 97.2 F 74 17 134/71 H 96 09/25/18 15:29 09/25/18 15:29 09/25/18 15:29 09/25/18 15:29 09/25/18 15:29 Intake & Output 09/24/18 09/25/18 09/26/18 06:59 06:59 06:59 Intake Total 4400 2684 200 Output Total 805 Balance 3595 2684 200 Weight 65.6 kg 67.2 kg General appearance: PRESENT: no acute distress, well-developed, well-nourished Head exam: PRESENT: atraumatic, normocephalic Eye exam: PRESENT: conjunctiva pink, EOMI, PERRLA. ABSENT: scleral icterus Ear exam: PRESENT: normal external ear exam Mouth exam: PRESENT: moist, tongue midline Neck exam: ABSENT: carotid bruit, JVD, lymphadenopathy, thyromegaly Respiratory exam: PRESENT: clear to auscultation tania. ABSENT: rales, rhonchi, wheezes Cardiovascular exam: PRESENT: RRR. ABSENT: diastolic murmur, rubs, systolic murmur Pulses: PRESENT: normal carotid pulses, normal radial pulses Vascular exam: PRESENT: normal capillary refill GI/Abdominal exam: PRESENT: normal bowel sounds, soft. ABSENT: distended, guarding, mass, organolmegaly, rebound, tenderness Rectal exam: PRESENT: deferred Extremities exam: PRESENT: tenderness - both dorsums of hands Musculoskeletal exam: PRESENT: ambulatory, full ROM, other - bilateral hands in compression dressings Neurological exam: PRESENT: alert, awake, oriented to person, oriented to place, oriented to time, oriented to situation, CN II-XII grossly intact. ABSENT: motor sensory deficit Psychiatric exam: PRESENT: appropriate affect, normal mood. ABSENT: homicidal ideation, suicidal ideation Skin exam: PRESENT: dry, intact, warm. ABSENT: cyanosis, rash Results Laboratory Results: 09/25/18 06:48 09/25/18 06:48 09/25/18 09/25/18 06:48 06:48 WBC 7.4 RBC 4.13 Hgb 11.4 L Hct 34.3 L MCV 83 MCH 27.6 MCHC 33.2 RDW 15.7 H Plt Count 340 Seg Neutrophils % 57.9 Lymphocytes % 30.4 Monocytes % 8.8 Eosinophils % 2.3 Basophils % 0.6 Absolute Neutrophils 4.3 Absolute Lymphocytes 2.3 Absolute Monocytes 0.7 Absolute Eosinophils 0.2 Absolute Basophils 0.0 Sodium 141.2 Potassium 3.9 Chloride 106 Carbon Dioxide 24 Anion Gap 11 BUN 10 Creatinine 0.45 L Est GFR ( Amer) > 60 Est GFR (Non-Af Amer) > 60 Glucose 96 Calcium 8.5 09/22/18 20:48 Blood Blood Culture - Final Peptostreptococcus Species No Aerobic Organisms 09/22/18 20:28 Hand - Abscess Gram Stain - Final 09/22/18 20:28 Hand - Abscess Wound Culture - Final Group G Beta Streptococcus Prevotella Species Skin Shazia Assessment and Plan - Diagnosis (1) Gram-positive cocci bacteremia Is this a current diagnosis for this admission?: Yes Plan: Patient had gram-positive cocci in 1 bottle. Culture grew Peptostreptococcus. Wound cultures grew the same. She did admit to injecting tap water into both hands for attention seeking behavior did de-escalate IV antibiotics to Unasyn 3 g every 6 IV. Will repeat blood cultures tomorrow morning (2) Abscess of dorsum of left hand Is this a current diagnosis for this admission?: Yes Plan: The patient is admitted to the medical floor patient was placed on broad- spectrum IV antibiotics after blood cultures were obtained. Orthopedic surgery was consulted. Dr. Cherry saw the patient consults her to the OR yesterday afternoon for incision and drainage of both hand wounds. Analgesics as needed. (3) Abscess of dorsum of right hand Is this a current diagnosis for this admission?: Yes Plan: As above. (4) Depression Is this a current diagnosis for this admission?: Yes Plan: Mental health consult has been placed; recommends IVC status. Medications have been reconciled; will resume her home dose Abilify, Klonopin, and melatonin. Will adjust medications per Dr. Mcneal's recommendations. (5) Diabetes Qualifiers: Diabetes mellitus type: type 2 Diabetes mellitus care home insulin use: without care home use Is this a current diagnosis for this admission?: Yes Plan: We will hold metformin and Toujeo Accu-Cheks before meals and at bedtime with Humalog for sliding scale coverage. We will restart her Lantus once her glucose increases. (6) Hypertension Is this a current diagnosis for this admission?: Yes Plan: Resume home dose of metoprolol. (7) Hypokalemia Is this a current diagnosis for this admission?: Yes Plan: Replete and monitor (8) Self-harming behavior Is this a current diagnosis for this admission?: Yes Plan: Mental health consult; have recommended IVC status. One-to-one sitter for safety. - Time Time Spent with patient: 25-34 minutes Total Critical Time (Minutes): 30 Medications reviewed and adjusted accordingly: Yes - Inpatient Certification Based on my medical assessment, after consideration of the patient's comorbidities, presenting symptoms, or acuity I expect that the services needed warrant INPATIENT care.: Yes Medical Necessity: Need for IV Antibiotics, Need for Surgery, Risk of Complication if Not Cared For in Hospital
[2018-09-25] MEDS: MELATONIN 3 MG TABLET PO SCH (22:41)
[2018-09-25] MEDS: FLUCONAZOLE 100 MG TABLET PO SCH (22:41)
[2018-09-25] MEDS: ZOLPIDEM TARTRATE 5 MG TABLET PO SCH (22:41)
[2018-09-26] MEDS: AMPICILLIN SODIUM/SULBACTAM NA 3 GM in NORMAL SALINE 100 ML IV SCH ×5 (00:09→23:35)
[2018-09-26 04:39] LABS: ABSOLUTE EOSINOPHILS # (AUTO) 0.3 10^3/uL (0.0-0.6); ABSOLUTE LYMPHOCYTES (AUTO) 2.1 10^3/uL (0.5-4.7); ABSOLUTE MONOCYTES (AUTO) 0.8 10^3/uL (0.1-1.4); ABSOLUTE NEUT (AUTO) 3.4 10^3/uL (1.7-8.2); BASOPHILS % (AUTO) 0.7 % (0-2); EOSINOPHILS % (AUTO) 5.1 % (0-6); HEMATOCRIT 32.7 % (36.0-47.0); HEMOGLOBIN 11.1 g/dL (12.0-15.5); LYMPHOCYTES % (AUTO) 31.1 % (13-45); MEAN CORPUSCULAR HEMOGLOBIN 27.6 pg (27.0-33.4); MEAN CORPUSCULAR HGB CONC 33.8 g/dL (32.0-36.0); MEAN CORPUSCULAR VOLUME 82 fl (80-97); MONOCYTES % (AUTO) 12.5 % (3-13); PLATELET COUNT 303 10^3/uL (150-450); RED CELL DISTRIBUTION WIDTH 15.9 % (11.5-14.0); SEGMENTED NEUTROPHILS % (AUTO) 50.6 % (42-78); TOTAL CELLS COUNTED % (AUTO) 100 %; WHITE BLOOD COUNT 6.7 10^3/uL (4.0-10.5)
[2018-09-26] MEDS: HEPARIN SOD (PORCINE) 5,000 UNIT/ML 1 ML SYRINGE SUBCUT SCH ×3 (05:19→21:27)
[2018-09-26] MEDS: INSULIN LISPRO 100 UNIT/ML 3 ML VIAL SUBCUT SCH ×4 (08:11→21:27)
--- NOTE | 2018-09-26 08:27 | PDOC PROGRESS REPORT ---
Subjective Progress Note for:: 09/26/18 Subjective:: Patient lying in bed company. No issues overnight. Denies fever chills or sweats. Pain controlled Reason For Visit: DIABETES HAND CELLULITIS BIPOLAR Physical Exam Vital Signs: Temp Pulse Resp BP Pulse Ox 98.6 F 90 17 132/63 H 97 09/25/18 20:33 09/25/18 20:33 09/25/18 20:33 09/25/18 20:33 09/25/18 20:33 Intake & Output 09/25/18 09/26/18 09/27/18 06:59 06:59 06:59 Intake Total 2684 1598 Balance 2684 1598 Weight 67.2 kg 63.5 kg Musculoskeletal exam: PRESENT: other - Right hand: No evidence of proximal erythema. Serosanguineous drainage noted swelling notably improved. Intact flexion/extension of the digits without pain. Compartments soft and compressible no sign of compartment syndrome. Left hand: No evidence of proximal erythema. Serosanguineous drainage noted swelling notably improved. Intact flexion/extension of the digits without pain. Compartments soft and compressible no sign of compartment syndrome. Results Laboratory Results: 09/26/18 03:50 09/25/18 06:48 09/26/18 03:50 WBC 6.7 RBC 4.00 Hgb 11.1 L Hct 32.7 L MCV 82 MCH 27.6 MCHC 33.8 RDW 15.9 H Plt Count 303 Seg Neutrophils % 50.6 Lymphocytes % 31.1 Monocytes % 12.5 Eosinophils % 5.1 Basophils % 0.7 Absolute Neutrophils 3.4 Absolute Lymphocytes 2.1 Absolute Monocytes 0.8 Absolute Eosinophils 0.3 Absolute Basophils 0.0 Assessment & Plan - Diagnosis (1) Abscess of dorsum of left hand Is this a current diagnosis for this admission?: Yes Plan: Status post irrigation debridement bilateral hands 1. Nursing staff will continue daily dressing changes with repacking 2. Unasyn IV as per hospitalist recommendation. 3. Discharge planning as per hospitalist/psychiatry, patient stable for discharge from an orthopedic perspective (2) Abscess of dorsum of right hand Is this a current diagnosis for this admission?: Yes
[2018-09-26] MEDS: DULOXETINE HCL 30 MG CAPSULE.DR PO SCH (09:46)
[2018-09-26] MEDS: DOCUSATE SODIUM 100 MG CAPSULE PO SCH ×2 (09:46→18:31)
[2018-09-26] MEDS: ARIPIPRAZOLE 5 MG TABLET PO SCH (09:46)
[2018-09-26] MEDS: PANTOPRAZOLE SODIUM 40 MG TABLET.DR PO SCH (09:47)
[2018-09-26] MEDS: INSULIN GLARGINE,HUM.REC.ANLOG 1,000 UNIT/10 ML VIAL SUBCUT SCH (09:47)
[2018-09-26] MEDS: METOPROLOL TARTRATE 50 MG TABLET PO SCH ×2 (09:47→21:26)
[2018-09-26] MEDS: CLONAZEPAM 1 MG TABLET PO SCH ×2 (09:47→21:24)
[2018-09-26] MEDS ORDERED: INSULIN GLARGINE,HUM.REC.ANLOG 1,000 UNIT/10 ML VIAL SUBCUT SCH (10:00)
--- NOTE | 2018-09-26 14:00 | PDOC PROGRESS REPORT ---
Subjective Progress Note for:: 09/26/18 Subjective:: Patient is seen resting in bed. She is awake, alert, oriented x3. She denies any chest pain, shortness of breath or dyspnea. She denies any cough. She denies any nausea, vomiting or abdominal pain. She is having moderate pain in both of her hands. She denies any fevers or chills or night. She denies any other significant arthralgias or myalgias. Remaining review of systems are negative. She remains on one to one supervision due to IVC. Reason For Visit: DIABETES HAND CELLULITIS BIPOLAR Physical Exam Vital Signs: Temp Pulse Resp BP Pulse Ox 97.4 F 86 18 147/85 H 98 09/26/18 08:33 09/26/18 08:33 09/26/18 08:33 09/26/18 08:33 09/26/18 08:33 Intake & Output 09/25/18 09/26/18 09/27/18 06:59 06:59 06:59 Intake Total 2684 1598 100 Balance 2684 1598 100 Weight 67.2 kg 63.5 kg General appearance: PRESENT: no acute distress, well-developed, well-nourished Head exam: PRESENT: atraumatic, normocephalic Eye exam: PRESENT: conjunctiva pink, EOMI, PERRLA. ABSENT: scleral icterus Ear exam: PRESENT: normal external ear exam Mouth exam: PRESENT: moist, tongue midline Neck exam: PRESENT: carotid bruit, full ROM Respiratory exam: PRESENT: clear to auscultation tania, symmetrical, unlabored. ABSENT: rales, rhonchi, wheezes Cardiovascular exam: PRESENT: RRR. ABSENT: diastolic murmur, rubs, systolic murmur Pulses: PRESENT: normal carotid pulses, normal radial pulses Vascular exam: PRESENT: normal capillary refill GI/Abdominal exam: PRESENT: normal bowel sounds, soft. ABSENT: distended, guarding, mass, organolmegaly, rebound, tenderness Rectal exam: PRESENT: deferred Extremities exam: PRESENT: full ROM. ABSENT: calf tenderness, clubbing, pedal edema Musculoskeletal exam: PRESENT: ambulatory, tenderness - dorsum of both hands. Both wrapped in compression dressings Neurological exam: PRESENT: alert, awake, oriented to person, oriented to place, oriented to time, oriented to situation, CN II-XII grossly intact. ABSENT: motor sensory deficit Psychiatric exam: PRESENT: appropriate affect, normal mood. ABSENT: homicidal ideation, suicidal ideation Skin exam: PRESENT: dry, intact, warm. ABSENT: cyanosis, rash Results Laboratory Results: 09/26/18 03:50 09/25/18 06:48 09/26/18 03:50 WBC 6.7 RBC 4.00 Hgb 11.1 L Hct 32.7 L MCV 82 MCH 27.6 MCHC 33.8 RDW 15.9 H Plt Count 303 Seg Neutrophils % 50.6 Lymphocytes % 31.1 Monocytes % 12.5 Eosinophils % 5.1 Basophils % 0.7 Absolute Neutrophils 3.4 Absolute Lymphocytes 2.1 Absolute Monocytes 0.8 Absolute Eosinophils 0.3 Absolute Basophils 0.0 09/23/18 15:00 Hand - Right Gram Stain - Final 09/23/18 15:05 Hand - Left Gram Stain - Final 09/23/18 15:05 Hand - Left Wound Culture - Final Enterococcus Gallinarum No Anaerobic Organisms Assessment and Plan - Diagnosis (1) Gram-positive cocci bacteremia Is this a current diagnosis for this admission?: Yes Plan: Patient had gram-positive cocci in 1 bottle. Culture grew Peptostreptococcus. Wound cultures grew the same. She did admit to injecting tap water into both hands for attention seeking behavior did de-escalate IV antibiotics to Unasyn 3 g every 6 IV. Repeat blood cultures today. (2) Abscess of dorsum of left hand Is this a current diagnosis for this admission?: Yes Plan: Patient had incision and drainage of both hands by Dr. Cherry, orthopedic surgery on 09/19/2018. (3) Abscess of dorsum of right hand Is this a current diagnosis for this admission?: Yes Plan: As above. (4) Depression Is this a current diagnosis for this admission?: Yes Plan: Mental health consult has been placed; recommends IVC status. Medications have been reconciled; will resume her home dose Abilify, Klonopin, and melatonin. Will adjust medications per Dr. Mcneal's recommendations. (5) Diabetes Qualifiers: Diabetes mellitus type: type 2 Diabetes mellitus terminal carman insulin use: without terminal carman use Is this a current diagnosis for this admission?: Yes Plan: We will hold metformin and Toujeo Accu-Cheks before meals and at bedtime with Humalog for sliding scale coverage. We will restart her Lantus once her glucose increases. (6) Hypertension Is this a current diagnosis for this admission?: Yes Plan: Resume home dose of metoprolol. (7) Hypokalemia Is this a current diagnosis for this admission?: Yes Plan: Replete and monitor (8) Self-harming behavior Is this a current diagnosis for this admission?: Yes Plan: Mental health consult; have recommended IVC status. One-to-one sitter for safety. - Time Time Spent with patient: 25-34 minutes Total Critical Time (Minutes): 20 Medications reviewed and adjusted accordingly: Yes - Inpatient Certification Based on my medical assessment, after consideration of the patient's comorbidities, presenting symptoms, or acuity I expect that the services needed warrant INPATIENT care.: Yes I certify that my determination is in accordance with my understanding of Medicare's requirements for reasonable and necessary INPATIENT services [42 CFR 412.3e].: Yes Medical Necessity: Need for IV Antibiotics, Need for Surgery, Risk of Complication if Not Cared For in Hospital
[2018-09-26] MEDS: ZOLPIDEM TARTRATE 5 MG TABLET PO SCH (21:24)
[2018-09-26] MEDS: FLUCONAZOLE 100 MG TABLET PO SCH (21:25)
[2018-09-26] MEDS: MELATONIN 3 MG TABLET PO SCH (21:25)
[2018-09-26] MEDS: OXYCODONE-ACETAMINOPHEN 5-325 MG TABLET PO PRN (21:26)
[2018-09-27] MEDS: AMPICILLIN SODIUM/SULBACTAM NA 3 GM in NORMAL SALINE 100 ML IV SCH ×3 (05:43→18:08)
[2018-09-27] MEDS: HEPARIN SOD (PORCINE) 5,000 UNIT/ML 1 ML SYRINGE SUBCUT SCH ×3 (05:43→22:23)
[2018-09-27] MEDS: INSULIN LISPRO 100 UNIT/ML 3 ML VIAL SUBCUT SCH ×4 (08:26→22:23)
[2018-09-27] MEDS: ARIPIPRAZOLE 5 MG TABLET PO SCH (10:14)
[2018-09-27] MEDS: METOPROLOL TARTRATE 50 MG TABLET PO SCH ×2 (10:14→22:22)
[2018-09-27] MEDS: PANTOPRAZOLE SODIUM 40 MG TABLET.DR PO SCH (10:14)
[2018-09-27] MEDS: DOCUSATE SODIUM 100 MG CAPSULE PO SCH ×2 (10:14→17:15)
[2018-09-27] MEDS: DULOXETINE HCL 30 MG CAPSULE.DR PO SCH (10:14)
[2018-09-27] MEDS: CLONAZEPAM 1 MG TABLET PO SCH ×2 (10:14→22:21)
[2018-09-27] MEDS: INSULIN GLARGINE,HUM.REC.ANLOG 1,000 UNIT/10 ML VIAL SUBCUT SCH (10:19)
--- NOTE | 2018-09-27 11:46 | PDOC PROGRESS REPORT ---
Subjective Progress Note for:: 09/27/18 Subjective:: Patient is seen resting in bedside chair. Her is at the bedside. She is awake, alert, oriented x3. She denies any chest pain, shortness of breath or dyspnea. She denies any cough. She denies any nausea, vomiting or abdominal pain. She is having moderate pain in both of her hands. She denies any fevers or chills or night. She denies any other significant arthralgias or myalgias. Remaining review of systems are negative. She remains on one to one supervision due to IVC. Reason For Visit: DIABETES HAND CELLULITIS BIPOLAR Physical Exam Vital Signs: Temp Pulse Resp BP Pulse Ox 98.1 F 78 16 133/79 H 98 09/27/18 07:34 09/27/18 07:34 09/27/18 07:34 09/27/18 07:34 09/27/18 07:34 Intake & Output 09/26/18 09/27/18 09/28/18 06:59 06:59 06:59 Intake Total 1598 1828 Balance 1598 1828 Weight 63.5 kg 65.6 kg General appearance: PRESENT: no acute distress, well-developed, well-nourished Head exam: PRESENT: atraumatic, normocephalic Eye exam: PRESENT: conjunctiva pink, EOMI, PERRLA. ABSENT: scleral icterus Ear exam: PRESENT: normal external ear exam Mouth exam: PRESENT: moist, tongue midline Neck exam: ABSENT: carotid bruit, JVD, lymphadenopathy, thyromegaly Respiratory exam: PRESENT: clear to auscultation tania. ABSENT: rales, rhonchi, wheezes Cardiovascular exam: PRESENT: RRR. ABSENT: diastolic murmur, rubs, systolic murmur Pulses: PRESENT: normal carotid pulses, normal radial pulses Vascular exam: PRESENT: normal capillary refill GI/Abdominal exam: PRESENT: normal bowel sounds, soft. ABSENT: distended, guarding, mass, organolmegaly, rebound, tenderness Rectal exam: PRESENT: deferred Extremities exam: PRESENT: full ROM, tenderness - dorsum of bilateral hand wounds. ABSENT: calf tenderness, clubbing, pedal edema Musculoskeletal exam: PRESENT: ambulatory, full ROM Neurological exam: PRESENT: alert, awake, oriented to person, oriented to place, oriented to time, oriented to situation, CN II-XII grossly intact. ABSENT: motor sensory deficit Psychiatric exam: PRESENT: appropriate affect, normal mood. ABSENT: homicidal ideation, suicidal ideation Skin exam: PRESENT: dry, intact, warm, other - wounds to bilateral hands are covered with compression dressings. Nursing report improvement of the wounds which they are dressing daily. ABSENT: cyanosis, rash Results Laboratory Results: 09/26/18 03:50 09/25/18 06:48 09/23/18 15:00 Hand - Right Gram Stain - Final 09/23/18 15:00 Hand - Right Wound Culture - Final Enterococcus Gallinarum Haemophilus Parainflu No Anaerobic Organisms 09/23/18 15:05 Hand - Left Gram Stain - Final 09/23/18 15:05 Hand - Left Wound Culture - Final Enterococcus Gallinarum No Anaerobic Organisms Assessment and Plan - Diagnosis (1) Gram-positive cocci bacteremia Is this a current diagnosis for this admission?: Yes Plan: Patient had gram-positive cocci in 1 bottle. Culture grew Peptostreptococcus. Wound cultures grew the same. She did admit to injecting tap water and soap into both hands for attention seeking behavior. We did de-escalate IV antibiotics to Unasyn 3 g every 6 IV. Repeat blood cultures are negative at 24 hrs. ID consult placed for Dr Funes for input on length of treatment for bacteremia. (2) Abscess of dorsum of left hand Is this a current diagnosis for this admission?: Yes Plan: Patient had incision and drainage of both hands by Dr. Cherry, orthopedic surgery on 09/19/2018. (3) Abscess of dorsum of right hand Is this a current diagnosis for this admission?: Yes Plan: As above. (4) Depression Is this a current diagnosis for this admission?: Yes Plan: Mental health consult has been placed; recommends IVC status. Medications have been reconciled; will resume her home dose Abilify, Klonopin, and melatonin. Will adjust medications per Dr. Mcneal's recommendations. (5) Self-harming behavior Is this a current diagnosis for this admission?: Yes Plan: Mental health consult; have recommended IVC status. One-to-one sitter for safety. 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 We will restart her Lantus once her glucose increases. (7) Hypertension Is this a current diagnosis for this admission?: Yes Plan: Resume home dose of metoprolol. (8) Hypokalemia Is this a current diagnosis for this admission?: Yes Plan: Replete and monitor - Time Time Spent with patient: 25-34 minutes Total Critical Time (Minutes): 25 Medications reviewed and adjusted accordingly: Yes Anticipated discharge: Other - [facility] once medically cleared - Inpatient Certification Based on my medical assessment, after consideration of the patient's comorbidities, presenting symptoms, or acuity I expect that the services needed warrant INPATIENT care.: Yes Medical Necessity: Need for IV Antibiotics
--- NOTE | 2018-09-27 13:00 | PDOC PROGRESS REPORT ---
Subjective Progress Note for:: 09/27/18 Subjective:: Patient lying in bed company. No issues overnight. Denies fever chills or sweats. Pain controlled Reason For Visit: DIABETES HAND CELLULITIS BIPOLAR Physical Exam Vital Signs: Temp Pulse Resp BP Pulse Ox 97.9 F 75 16 149/84 H 97 09/27/18 11:23 09/27/18 11:23 09/27/18 11:23 09/27/18 11:23 09/27/18 11:23 Intake & Output 09/26/18 09/27/18 09/28/18 06:59 06:59 06:59 Intake Total 1598 1828 Balance 1598 1828 Weight 63.5 kg 65.6 kg Musculoskeletal exam: PRESENT: other - Bilateral hands: Dressing clean/dr y/intact serosanguineous drainage left greater than right. No erythema proximally. Intact IP/MP joint flexion/extension. No pain with range of motion. Compartments soft and compressible. Results Laboratory Results: 09/26/18 03:50 09/25/18 06:48 09/23/18 15:00 Hand - Right Gram Stain - Final 09/23/18 15:00 Hand - Right Wound Culture - Final Enterococcus Gallinarum Haemophilus Parainflu No Anaerobic Organisms 09/23/18 15:05 Hand - Left Gram Stain - Final 09/23/18 15:05 Hand - Left Wound Culture - Final Enterococcus Gallinarum No Anaerobic Organisms Assessment & Plan - Diagnosis (1) Abscess of dorsum of left hand Is this a current diagnosis for this admission?: Yes Plan: Status post irrigation debridement bilateral hands 1. Nursing staff will continue daily dressing changes as per Dr. Cherry 2. Unasyn IV as per hospitalist recommendation. 3. Discharge planning as per hospitalist/psychiatry, patient stable for discharge from an orthopedic perspective (2) Abscess of dorsum of right hand Is this a current diagnosis for this admission?: Yes
--- NOTE | 2018-09-27 14:47 | PSYCHOLOGICAL NOTE ---
Psych Note - Psych Note Date seen by psych provider: 09/24/18 Time seen by psych provider: 16:00 Psych Note: Reason for Consult: Self Harm Consent permissions: Victor M, patient's , (cell) [phone] (home) Patient arrived to [facility] from [facility]. Patient was admitted to [facility] voluntarily; however, when it became apparent the patient needed medical attention on her hands, [facility] staff brought her to [facility]. She was discharged from that facility; confirmed by [facility] staff when the behavioral health team contacted them. They report that once the patient is medically cleared she is welcomed to return to there facility. Patient disclosed that she has been struggling the last 10 months with her depression because she has been unable to find work. She states that she previously did not have difficulty; however, after rules changed about insurance she has been unable to find employment because she has had to malpractice suits that are over $1 million. She denies that she was attempting to kill herself stating; "it is like cutting... 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 all you do is mixed together a bunch of muck and chemicals. Then I just injected it." When asked when she did it before she refuses to specify only stating "all the long time ago." She denies that anything ever occurred when doing the first time. Patient was unable to articulate what she got out of injecting the mixture into her hands stating "nothing, I got nothing out of it." She was unable to explain why she tried again if she did not get anything out of it the first time. Patient then states "it did not work...So now I have to go back and figure out what I will do next." Patient is unable or unwilling to fully explain this comment. Patient is alert and orientated to person, place, time and circumstance. Patient reports dysphoria however mood and affect is incongruent with patient smiling, very cheerful and engaging with clinician. Patient denies suicidal and homicidal ideation reporting engaging in self-harm as a maladaptive coping skill. Delusions are absent behaviors congruent with an intact reality based presentation i.e. organized and linear thought process. Eye contact was well- maintained. Conversational speech is within normal rate, tone and prosody. Intellectual ability is average to high average range. Attention and concentration is good. Insight, judgment, impulse control is poor. 311 (F32.9) unspecified depressive disorder V62.29 (Z56.9) other problems related to employment Impression\\plan: Patient is recommended for continued IVC. Patient was receiving voluntary inpatient psychiatric treatment at [facility] prior to identifying needing medical treatment. Patient has had an increase in depression over the last 10 months and engaged in self-harm. There is significant concern the patient has no true insight at the level of her self- harm. It is concerning that the patient is unable to identify why she engaged and what she got out of it. Most that engage in self harm as a form of maladaptive coping skill can easily identify what it can do for them (i.e. release of emotion, permission to have an emotion, or to control an emotion). Patient also makes a comment that it "did not work" and then states that she needs to figure out what she will do "next." She is unable or unwilling to explain these comments. Patient is demonstrating little ability at insight into her current situation as she presents very laid back and nonchalant. Patient's mood and affect is very incongruent with conversation topics as she reports very [id number] mixing cleaning chemicals and dirty water to put into syringes and injected it into the top of her hand in multiple places. Patient will be reevaluated. Dr. Mcneal was consulted and the care management of this patient; attending physicians in agreement with recommendations and disposition.
--- NOTE | 2018-09-27 14:51 | PSYCHOLOGICAL NOTE ---
Psych Note - Psych Note Date seen by psych provider: 09/25/18 Psych Note: Reason for Consult: Self Harm Consent permissions: Victor M, patient's , (cell) [phone] (home) Patient arrived to [facility] from [facility]. Patient was admitted to [facility] voluntarily; however, when it became apparent the patient needed medical attention on her hands, [facility] staff brought her to [facility]. She was discharged from that facility; confirmed by [facility] staff when the behavioral health team contacted them. They report that once the patient is medically cleared she is welcomed to return to there facility. Due to patient flow in the ED, the patient was unable to be seen in person. Chart review conducted. There is no change to patient's current status. She is still not medically cleared, no new concerns have been identified. 311 (F32.9) unspecified depressive disorder V62.29 (Z56.9) other problems related to employment Impression\\plan: Patient is recommended for continued IVC. Patient was receiving voluntary inpatient psychiatric treatment at [facility] prior to identifying needing medical treatment. Patient has had an increase in depression over the last 10 months and engaged in self-harm. There is significant concern the patient has no true insight at the level of her self- harm. It is concerning that the patient is unable to identify why she engaged and what she got out of it. Most that engage in self harm as a form of maladaptive coping skill can easily identify what it can do for them (i.e. release of emotion, permission to have an emotion, or to control an emotion). Patient also makes a comment that it "did not work" and then states that she needs to figure out what she will do "next." She is unable or unwilling to explain these comments. Patient is demonstrating little ability at insight into her current situation as she presents very laid back and nonchalant. Patient's mood and affect is very incongruent with conversation topics as she reports very [id number] mixing cleaning chemicals and dirty water to put into syringes and injected it into the top of her hand in multiple places. Patient will be reevaluated. Dr. Mcneal was consulted and the care management of this patient; attending physicians in agreement with recommendations and disposition.
--- NOTE | 2018-09-27 15:17 | PSYCHOLOGICAL NOTE ---
Psych Note - Psych Note Date seen by psych provider: 09/27/18 Time seen by psych provider: 08:850 Psych Note: Reason for Consult: Self Harm Consent permissions: Victor M, patient's , (cell) [phone] (home) Patient arrived to [facility]. Patient was admitted to [facility] voluntarily; however, when it became apparent the patient needed medical attention on her hands, [facility] staff brought her to [facility]. She was discharged from that facility; confirmed by [facility] staff when the behavioral health team contacted them. They report that once the patient is medically cleared she is welcomed to return to there facility. Check in conducted with patient: Patient's mood is euthymic with congruent affect. Patient discusses wanting [facility] a [facility] after her medical and acute psychiatric treatment. She continues to discuss how important going to a [facility] is and starts to discuss her misha. Clinician notes patient is having difficulty forming flowing structured sentences with multiple pauses for word searching, repeating phrases over and over, and becomes very tangential with her thoughts and is not easily redirected. Patient attempts to discuss a typewriter repairer that she is interested in, stating he used to be atheist and converted to Tenriism. 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 Clinician explained the IVC process again to patient incase she did not remember during previous evaluation; in addition, to current plan of care. When patient is asked if she had any further concerns or questions about her plan of care, the patient asked the clinician what anglican the clinician attended and then started to talk about some people she identifies as converting from other faiths to [employer]. Clinician spoke with attending nurse to discuss concerns with the patient's increasing difficulty with conversational speech and tangential thought processes. She confirms she will contact behavior health team if difficulties the patient is demonstrating increase. 311 (F32.9) unspecified depressive disorder V62.29 (Z56.9) other problems related to employment Impression\\plan: Patient is recommended for continued IVC. Patient was receiving voluntary inpatient psychiatric treatment at [facility] prior to identifying needing medical treatment. Patient has had an increase in depression over the last 10 months and engaged in self-harm. There is significant concern the patient has no true insight at the level of her self- harm. Patient demonstrated increased difficult with memory today, with little fluid conversational speech and tangential thought processes. Clinician notes patient's comment of "why Candelario chose to come down off the cross" for love is an interesting turn of phrase, as this is not common for Christians to state; rather, it is common to hear said that Candelario "chose to for our sins" and " Candelario chose to stay on the cross." Patient will be reevaluated. Dr. Mcneal was consulted and the care management of this patient; attending physicians in agreement with recommendations and disposition.
[2018-09-27] MEDS: OXYCODONE-ACETAMINOPHEN 5-325 MG TABLET PO PRN (17:12)
[2018-09-27] MEDS: FLUCONAZOLE 100 MG TABLET PO SCH (22:21)
[2018-09-27] MEDS: MELATONIN 3 MG TABLET PO SCH (22:22)
[2018-09-27] MEDS: ZOLPIDEM TARTRATE 5 MG TABLET PO SCH (22:22)
[2018-09-28] MEDS: AMPICILLIN SODIUM/SULBACTAM NA 3 GM in NORMAL SALINE 100 ML IV SCH ×4 (00:29→17:09)
[2018-09-28 05:13] LABS: ABSOLUTE EOSINOPHILS # (AUTO) 0.5 10^3/uL (0.0-0.6); ABSOLUTE LYMPHOCYTES (AUTO) 2.2 10^3/uL (0.5-4.7); ABSOLUTE MONOCYTES (AUTO) 0.6 10^3/uL (0.1-1.4); ABSOLUTE NEUT (AUTO) 2.5 10^3/uL (1.7-8.2); BASOPHILS % (AUTO) 0.7 % (0-2); EOSINOPHILS % (AUTO) 7.9 % (0-6); HEMATOCRIT 34.5 % (36.0-47.0); HEMOGLOBIN 11.7 g/dL (12.0-15.5); LYMPHOCYTES % (AUTO) 37.4 % (13-45); MEAN CORPUSCULAR HEMOGLOBIN 27.5 pg (27.0-33.4); MEAN CORPUSCULAR VOLUME 81 fl (80-97); MONOCYTES % (AUTO) 10.9 % (3-13); PLATELET COUNT 386 10^3/uL (150-450); RED BLOOD COUNT 4.27 10^6/uL (3.72-5.28); RED CELL DISTRIBUTION WIDTH 15.9 % (11.5-14.0); SEGMENTED NEUTROPHILS % (AUTO) 43.1 % (42-78); TOTAL CELLS COUNTED % (AUTO) 100 %; WHITE BLOOD COUNT 5.8 10^3/uL (4.0-10.5)
[2018-09-28 05:35] LABS: ANION GAP 8 (5-19); BLOOD UREA NITROGEN 4 mg/dL (7-20); CALCIUM 8.5 mg/dL (8.4-10.2); CARBON DIOXIDE 27 mmol/L (22-30); CHLORIDE 107 mmol/L (98-107); GLUCOSE 103 mg/dL (75-110); POTASSIUM 3.4 mmol/L (3.6-5.0)
[2018-09-28] MEDS: HEPARIN SOD (PORCINE) 5,000 UNIT/ML 1 ML SYRINGE SUBCUT SCH ×2 (06:23→13:42)
[2018-09-28] MEDS: INSULIN LISPRO 100 UNIT/ML 3 ML VIAL SUBCUT SCH ×3 (09:01→16:33)
[2018-09-28] MEDS: CLONAZEPAM 1 MG TABLET PO SCH ×2 (09:10→22:57)
[2018-09-28] MEDS: METOPROLOL TARTRATE 50 MG TABLET PO SCH ×2 (09:11→22:58)
[2018-09-28] MEDS: DULOXETINE HCL 30 MG CAPSULE.DR PO SCH (09:11)
[2018-09-28] MEDS: PANTOPRAZOLE SODIUM 40 MG TABLET.DR PO SCH (09:12)
[2018-09-28] MEDS: DOCUSATE SODIUM 100 MG CAPSULE PO SCH ×2 (09:12→17:37)
[2018-09-28] MEDS: ARIPIPRAZOLE 5 MG TABLET PO SCH (09:12)
[2018-09-28] MEDS: INSULIN GLARGINE,HUM.REC.ANLOG 1,000 UNIT/10 ML VIAL SUBCUT SCH ×2 (09:22→13:14)
[2018-09-28] MEDS ORDERED: POTASSIUM CHLORIDE 10 MEQ CAPSULE.ER PO ONE (12:13)
--- NOTE | 2018-09-28 12:13 | PDOC PROGRESS REPORT ---
Subjective Progress Note for:: 09/28/18 Subjective:: 58-year-old female admitted for suicidal behavior she is under involuntary commitment comfortably in the bed communicating well. Denies any complaints. No acute events in the last 24 hours. Afebrile. Reason For Visit: DIABETES HAND CELLULITIS BIPOLAR Physical Exam Vital Signs: Temp Pulse Resp BP Pulse Ox 98.6 F 66 16 132/64 H 99 09/28/18 11:13 09/28/18 11:13 09/28/18 11:13 09/28/18 11:13 09/28/18 11:13 Intake & Output 09/27/18 09/28/18 09/29/18 06:59 06:59 06:59 Intake Total 1828 780 100 Balance 1828 780 100 Weight 65.6 kg 64.5 kg General appearance: PRESENT: no acute distress Head exam: PRESENT: atraumatic Eye exam: PRESENT: PERRLA Neck exam: ABSENT: carotid bruit, JVD, lymphadenopathy, thyromegaly Respiratory exam: PRESENT: clear to auscultation tania. ABSENT: rales, rhonchi, wheezes Cardiovascular exam: PRESENT: RRR. ABSENT: diastolic murmur, rubs, systolic murmur GI/Abdominal exam: PRESENT: normal bowel sounds, soft. ABSENT: distended, guarding, mass, organolmegaly, rebound, tenderness Rectal exam: PRESENT: deferred Extremities exam: PRESENT: other - Both arms are wrapped in bandage. Neurological exam: PRESENT: alert, awake, oriented to person, oriented to place, oriented to time, oriented to situation, CN II-XII grossly intact. ABSENT: motor sensory deficit Psychiatric exam: PRESENT: anxious Results Laboratory Results: 09/28/18 04:12 09/28/18 04:12 09/28/18 09/28/18 04:12 04:12 WBC 5.8 RBC 4.27 Hgb 11.7 L Hct 34.5 L MCV 81 MCH 27.5 MCHC 34.0 RDW 15.9 H Plt Count 386 Seg Neutrophils % 43.1 Lymphocytes % 37.4 Monocytes % 10.9 Eosinophils % 7.9 H Basophils % 0.7 Absolute Neutrophils 2.5 Absolute Lymphocytes 2.2 Absolute Monocytes 0.6 Absolute Eosinophils 0.5 Absolute Basophils 0.0 Sodium 142.0 Potassium 3.4 L Chloride 107 Carbon Dioxide 27 Anion Gap 8 BUN 4 L Creatinine 0.53 Est GFR ( Amer) > 60 Est GFR (Non-Af Amer) > 60 Glucose 103 Calcium 8.5 Magnesium 1.9 09/22/18 18:57 Blood Blood Culture - Final NO GROWTH IN 5 DAYS Assessment and Plan - Diagnosis (1) Abscess of dorsum of left hand Is this a current diagnosis for this admission?: Yes Plan: Patient had incision and drainage of both hands by Dr. Cherry, orthopedic surgery on 09/19/2018. 09/28/2018-patient has IND of the both hands done on 09/19/2018. Further management as per orthopedic team. The cultures are growing enterococcus gallinarium (2) Abscess of dorsum of right hand Is this a current diagnosis for this admission?: Yes Plan: As above. 09/28/2018-IND of the blood counts done by ortho team on 09/19/2018-for further management as per the orthopedic team. (3) Diabetes Qualifiers: Diabetes mellitus type: type 2 Diabetes mellitus [employer] insulin use: without skilled nursing use Is this a current diagnosis for this admission?: Yes Plan: We will hold metformin and Toujeo Accu-Cheks before meals and at bedtime with Humalog for sliding scale coverage. We will restart her Lantus once her glucose increases. 09/28/2018-patient is given history of type 2 diabetes mellitus. Presently on insulin sliding scale before meals and at bedtime. Latest blood sugar is 175. To start on Lantus 10 units twice a day from today. Hemoglobin A1c 6.1. (4) Gram-positive cocci bacteremia Is this a current diagnosis for this admission?: Yes Plan: Patient had gram-positive cocci in 1 bottle. Culture grew Peptostreptococcus. Wound cultures grew the same. She did admit to injecting tap water and soap into both hands for attention seeking behavior. We did de-escalate IV antibi otics to Unasyn 3 g every 6 IV. Repeat blood cultures are negative at 24 hrs. ID consult placed for Dr Funes for input on length of treatment for bacteremia. 09/28/2018-wound cultures are showing Peptostreptococcus. Presently on IV Unasyn 3 g every 6 hours. Repeat blood cultures are negative so far. Further recommendations from ID are pending. Patient is afebrile. [place] 98.6. (5) Hypertension Is this a current diagnosis for this admission?: Yes Plan: Resume home dose of metoprolol. 09/28/2018-patient blood pressure today is 132/64. Presently on metoprolol 10 mg p.o. every 12 hours. Plan is to continue the present management. (6) Self-harming behavior Is this a current diagnosis for this admission?: Yes Plan: Mental health consult; have recommended IVC status. One-to-one sitter for safety. 09/28/2018-team on board. The recommendation is to continue IVC status. The following the psychiatric recommendations. She is under one-to-one observation. (7) Hypokalemia Is this a current diagnosis for this admission?: Yes Plan: Replete and monitor 09/28/2018-serum potassium level is 3.4. Continue to supplement potassium. - Time Time Spent with patient: 15-24 minutes Medications reviewed and adjusted accordingly: Yes
--- NOTE | 2018-09-28 13:52 | Progress Note ---
Provider Note Provider Note: ID Consult Note- I was asked to review this patient's hospital records to give recommendations regarding antibiotics and duration. Patient has a history of diabetes. She also has a history of previous suicidal attempts. She apparently injected a mixture of dirty tap water into the dorsal aspects of both hands 10 days ago. She was seen in the ED on September 22 and admitted. She had I&Ds of both hands done on September 23. Cultures of the purulent fluid grew Group G Strep, Enterococcus, Prevotella, and Haemophilus parainfluenza. Blood culture from admission had Peptostreptococcus in one bottle. The patient has clinically improved. WBC has normalized. She has been treated with IV Unasyn. Recommendations: Would continue Unasyn during her hospitalization, but she can be switched to oral amoxicillin 500 mg po TID whenever she is ready for discharge. Recommend treating for a total of 10-14 days total. She is currently on day 6 of therapy. Please contact me if there are questions. Aubrey Aguilar MD Pager: [phone]
[2018-09-28] MEDS: ZOLPIDEM TARTRATE 5 MG TABLET PO SCH (22:57)
[2018-09-28] MEDS: FLUCONAZOLE 100 MG TABLET PO SCH (22:57)
[2018-09-28] MEDS: MELATONIN 3 MG TABLET PO SCH (22:58)
[2018-09-29] MEDS: AMPICILLIN SODIUM/SULBACTAM NA 3 GM in NORMAL SALINE 100 ML IV SCH ×5 (06:34→23:46)
[2018-09-29] MEDS: INSULIN GLARGINE,HUM.REC.ANLOG 1,000 UNIT/10 ML VIAL SUBCUT SCH ×3 (06:42→23:48)
[2018-09-29] MEDS: INSULIN LISPRO 100 UNIT/ML 3 ML VIAL SUBCUT SCH ×5 (06:44→23:47)
[2018-09-29] MEDS: HEPARIN SOD (PORCINE) 5,000 UNIT/ML 1 ML SYRINGE SUBCUT SCH ×3 (06:45→23:48)
--- NOTE | 2018-09-29 07:11 | PDOC PROGRESS REPORT ---
Subjective Progress Note for:: 09/29/18 Reason For Visit: DIABETES HAND CELLULITIS BIPOLAR 58-year-old female status post I&D of both hands for self-inflicted septic conditions. Cultures are growing enterococcus. Physical Exam Vital Signs: Temp Pulse Resp BP Pulse Ox 36.9 C 72 16 128/50 H 98 09/28/18 23:25 09/28/18 23:25 09/28/18 15:11 09/28/18 23:25 09/28/18 23:25 Intake & Output 09/28/18 09/29/18 09/30/18 06:59 06:59 06:59 Intake Total 780 555 Balance 780 555 Weight 64.5 kg 65.5 kg Physical Exam: Patient in the bathroom this morning and was unable to return to her bed for ex amination. Nursing reports that ongoing dressing changes on the upper extremities continues as well as advancing of the packing. Apparently patients removed her own dressing several times overnight. Results Laboratory Results: 09/28/18 04:12 09/28/18 04:12 Assessment & Plan - Diagnosis (1) Abscess of dorsum of left hand Is this a current diagnosis for this admission?: Yes Plan: Continue antibiotics and dressing changes. (2) Abscess of dorsum of right hand Is this a current diagnosis for this admission?: Yes (3) Cellulitis of hand Is this a current diagnosis for this admission?: Yes
[2018-09-29] MEDS: METOPROLOL TARTRATE 50 MG TABLET PO SCH ×2 (09:00→23:45)
[2018-09-29] MEDS: ARIPIPRAZOLE 5 MG TABLET PO SCH (09:00)
[2018-09-29] MEDS: CLONAZEPAM 1 MG TABLET PO SCH ×2 (09:01→23:45)
[2018-09-29] MEDS: PANTOPRAZOLE SODIUM 40 MG TABLET.DR PO SCH (09:02)
[2018-09-29] MEDS: DOCUSATE SODIUM 100 MG CAPSULE PO SCH ×2 (09:02→17:40)
[2018-09-29] MEDS: DULOXETINE HCL 30 MG CAPSULE.DR PO SCH (09:02)
--- NOTE | 2018-09-29 20:55 | PDOC PROGRESS REPORT ---
Subjective Progress Note for:: 09/29/18 Subjective:: 56 y.o. F with a PMH of HTN, GERD, depression and anxiety. She was admitted for reportedly injecting the dorsal part of her hands with tap water. She is admitted to the hospitalist service with ortho consulting. Psych is also consulted, the patient remains under IVC. The patient was seen on rounds. Daily dressing change done during assessment. Erythema and swelling to each hand, wounds are packed with iodiform and held together with a few sutures. On the R hand a small amount of pus can be expressed from the wound. On the L hand, there is still a great deal of erythema and swelling, wound is packed with iodoform. Despite their appearance, the patient states that the wounds have improved over the last 48hrs. ID was consulted yesterday and recommend continuing IV Unasyn for 10-14 days of treatment. uuuuuuuuuuuuuuuuuuuuuuuuuuuuuuuuuuuuuuuuuuuuuuuuuuuuuuuu uuuuuuuuuuuuuuuuuuuuuuuuuuuuuuuuuuuuuuuuuuuuuuuuuuuuuuuuuuuuuuuuuuuuuuuuuuuuuuuuuuuuuuuuuuuuuuuuuuuu uuuuuuuuuuuuuuuuuuuuuuuuuuuuuuuuuuuuuuuuuuuuuuuuuuuuuuuuuuuuuuuuuuuuuuuuuuuuuuuuuuuuuuuuuuuuuuuuuuuu uuuuuuuuuuuuuuuuuuuuuuuuuuuuuuuuuuuuuuuuuuuuuuuuuuuuuuuuuuuuuuuuuuuuuuuuuuuuuuuuuuuuuuuuuuuuuuuuuuuu uuuuuuuuuuuuuuuuuuuuuuuuuuuuuuuuuuuuuuuuuuuuuuuuuuuuuuuuuuuuuuuuuuuuuuuuuuuuuuuuuuuuuuuuuuuuuuuuuuuu uuuuuuuuuuuuuuuuuuuuuuuuuuuuuuuuuuuuuuuuuuuuuuuuuuuuuuuuuuuuuuuuuuuuuuuuuuuuuuuuuuuuuuuuuuuuuuuuuuuu uuuuuuuuuuuuuuuuuuuuuuuuuuuuuuuuuuuuuuuuuuuuuuuuuuuuuuuuuuuuuuuuuuuuuuuuuuuuuuuuuuuuuuuuuuuuuuuuuuuu uuuuuuuuuuuuuuuuuuuuuuuuuuuuuuuuuuuuuuuuuuuuuuuuuuuuuuuuuuuuuuuuuuuuuuuuuuuuuuuuuuuuuuuuuuuuuuuuuuuu uuuuuuuuuuuuuuuuuuuuuuuuuuuuuuuuuuuuuuuuuuuuuuuuuuuuuuuuuuuuuuuuuuuuuuuuuuuuuuuuuuuuuuuuuuuuuuuuuuuu uuuuuuuuuuuuuuuuuuuuuuuuuuuuuuuuuuuuuuuuuuuuuuuuuuuuuuuuuuuuuuuuuuuuuuuuuuuuuuuuuuuuuuuuuuuuuuuuuuuu uuuuuuuuuuuuuuuuuuuuuuuuuuuuuuuuuuuuuuuuuuuuuuuuuuuuuuuuuuuuuuuuuuuuuuuuuuuuuuuuuuuuuuuuuuuuuuuuuuuu uuuuuuuuuuuuuuuuuuuuuuuuuuuuuuuuuuuuuuuuuuuuuuuuuuuuuuuuuuuuuuuuuuuuuuuuuuuuuuuuuuuuuuuuuuuuuuuuuuuu uuuuuuuuuuuuuuuuuuuuuuuuuuuuuuuuuuuuuuuuuuuuuuuuuuuuuuuuuuuuuuuuuuuuuuuuuuuuuuuuuuuuuuuuuuuuuuuuuuuu uuuuuuuuuuuuuuuuuuuuuuuuuuuuuuuuuuuuuuuuuuuuuuuuuuuuuuuuuuuuuuuuuuuuuuuuuuuuuuuuuuuuuuuuuuuuuuuuuuuu uuuuuuuuuuuuuuuuuuuuuuuuuuuuuuuuuuuuuuuuuuuuuuuuuuuuuuuuuuuuuuuuuuuuuuuuuuuuuuuuuuuuuuuuuuuuuuuuuuuu uuuuuuuuuuuuuuuuuuuuuuuuuuuuuuuuuuuuuuuuuuuuuuuuuuuuuuuuuuuuuuuuuuuuuuuuuuuuuuuuuuuuuuuuuuuuuuuuuuuu uuuuuuuuuuuuuuuuuuuuuuuuuuuuuuuuuuuuuuuuuuuuuuuuuuuuuuuuuuuuuuuuuuuuuuuuuuuuuuuuuuuuuuuuuuuuuuuuuuuu uuuuuuuuuuuuuuuuuuuuuuuuuuuuuuuuuuuuuuuuuuuuuuuuuuuuuuuuuuuuuuuuuuuuuuuuuuuuuuuuuuuuuuuuuuuuuuuuuuuu uuuuuuuuuuuuuuuuuuuuuuuuuuuuuuuuuuuuuuuuuuuuuuuuuuuuuuuuuuuuuuuuuuuuuuuuuuuuuuuuuuuuuuuuuuuuuuuuuuuu uuuuuuuuuuuuuuuuuuuuuuuuuuuuuuuuuuuuuuuuuuuuuuuuuuuuuuuuuuuuuuuuuuuuuuuuuuuuuuuuuuuuuuuuuuuuuuuuuuuu uuuuuuuuuuuuuuuuuuuuuuuuuuuuuuuuuuuuuuuuuuuuuuuuuuuuuuuuuuuuuuuuuuuuuuuuuuuuuuuuuuuuuuuuuuuuuuuuuuuu uuuuuuuuuuuuuuuuuuuuuuuuuuuuuuuuuuuuuuuuuuuuuuuuuuuuuuuuuuuuuuuuuuuuuuuuuuuuuuuuuuuuuuuuuuuuuuuuuuuu uuuuuuuuuuuuuuuuuuuuuuuuuuuuuuuuuuuuuuuuuuuuuuuuuuuuuuuuuuuuuuuuuuuuuuuuuuuuuuuuuuuuuuuuuuuuuuuuuuuu uuuuuuuuuuuuuuuuuuuuuuuuuuuuuuuuuuuuuuuuuuuuuuuuuuuuuuuuuuuuuuuuuuuuuuuuuuuuuuuuuuuuuuuuuuuuuuuuuuuu uuuuuuuuuuuuuuuuuuuuuuuuuuuuuuuuuuuuuuuuuuuuuuuuuuuuuuuuuuuuuuuuuuuuuuuuuuuuuuuuuuuuuuuuuuuuuuuuuuuu uuuuuuuuuuuuuuuuuuuuuuuuuuuuuuuuuuuuuuuuuuuuuuuuuuuuuuuuuuuuuuuuuuuuuuuuuuuuuuuuuuuuuuuuuuuuuuuuuuuu uuuuuuuuuuuuuuuuuuuuuuuuuuuuuuuuuuuuuuuuuuuuuuuuuuuuuuuuuuuuuuuuuuuuuuuuuuuuuuuuuuuuuuuuuuuuuuuuuuuu uuuuuuuuuuuuuuuuuuuuuuuuuuuuuuuuuuuuuuuuuuuuuuuuuuuuuuuuuuuuuuuuuuuuuuuuuuuuuuuuuuuuuuuuuuuuuuuuuuuu uuuuuuuuuuuuuuuuuuuuuuuuuuuuuuuuuuuuuuuuuuuuuuuuuuuuuuuuuuuuuuuuuuuuuuuuuuuuuuuuuuuuuuuuuuuuuuuuuuuu uuuuuuuuuuuuuuuuuuuuuuuuuuuuuuuuuuuuuuuuuuuuuuuuuuuuuuuuuuuuuuuuuuuuuuuuuuuuuuuuuuuuuuuuuuuuuuuuuuuu uuuuuuuuuuuuuuuuuuuuuuuuuuuuuuuuuuuuuuuuuuuuuuuuuuuuuuuuuuuuuuuuuuuuuuuuuuuuuuuuuuuuuuuuuuuuuuuuuuuu uuuuuuuuuuuuuuuuuuuuuuuuuuuuuuuuuuuuuuuuuuuuuuuuuuuuuuuuuuuuuuuuuuuuuuuuuuuuuuuuuuuuuuuuuuuuuuuuuuuu uuuuuuuuuuuuuuuuuuuuuuuuuuuuuuuuuuuuuuuuuuuuuuuuuuuuuuuuuuuuuuuuuuuuuuuuuuuuuuuuuuuuuuuuuuuuuuuuuuuu uuuuuuuuuuuuuuuuuuuuuuuuuuuuuuuuuuuuuuuuuuuuuuuuuuuuuuuuuuuuuuuuuuuuuuuuuuuuuuuuuuuuuuuuuuuuuuuuuuuu uuuuuuuuuuuuuuuuuuuuuuuuuuuuuuuuuuuuuuuuuuuuuuuuuuuuuuuuuuuuuuuuuuuuuuuuuuuuuuuuuuuuuuuuuuuuuuuuuuuu uuuuuuuuuuuuuuuuuuuuuuuuuuuuuuuuuuuuuuuuuuuuuuuuuuuuuuuuuuuuuuuuuuuuuuuuuuuuuuuuuuuuuuuuuuuuuuuuuuuu uuuuuuuuuuuuuuuuuuuuuuuuuuuuuuuuuuuuuuuuuuuuuuuuuuuuuuuuuuuuuuuuuuuuuuuuuuuuuuuuuuuuuuuuuuuuuuuuuuuu uuuuuuuuuuuuuuuuuuuuuuuuuuuuuuuuuuuuuuuuuuuuuuuuuuuuuuuuuuuuuuuuuuuuuuuuuuuuuuuuuuuuuuuuuuuuuuuuuuuu uuuuuuuuuuuuuuuuuuuuuuuuuuuuuuuuuuuuuuuuuuuuuuuuuuuuuuuuuuuuuuuuuuuuuuuuuuuuuuuuuuuuuuuuuuuuuuuuuuuu uuuuuuuuuuuuuuuuuuuuuuuuuuuuuuuuuuuuuuuuuuuuuuuuuuuuuuuuuuuuuuuuuuuuuuuuuuuuuuuuuuuuuuuuuuuuuuuuuuuu uuuuuuuuuuuuuuuuuuuuuuuuuuuuuuuuuuuuuuuuuuuuuuuuuuuuuuuuuuuuuuuuuuuuuuuuuuuuuuuuuuuuuuuuuuuuuuuuuuuu uuuuuuuuuuuuuuuuuuuuuuuuuuuuuuuuuuuuuuuuuuuuuuuuuuuuuuwwwwwwwwwwwwwwwwwwwwwwwwwwwwwwwwwwwwwwwwwwwwww wwwwwwwwwwwwwwwwwwwwwwwwwwwwwwwwwwwwwwwwwwwwwwwwwwwwwwwwwwwwwwwwwwwwwwwwwwwwwwwwwwwwwwwwwwwwwwwwwwww wwwwwwwwwwwwwwwwwwwwwwwwwwwwwwwwwwwwwwwwwwwwwwwwwwwwwwwwwwwwwwwwwwwwwwwwwwwwwwwwwwwwwwwwwwwwwwwwwwww wwwwwwwwwwwwwwwwwwwwwwwwwwwwwwwwwwwwwwwwwwwwwwwwwwwwwwwwwwwwwwwwwwwwwwwwwwwwwwwwwwwwwwwwwwwwwwwwwwww wwwwwwwwwwwwwwwwwwwwwwwwwwwwwwwwwwwwwwwwwwwwwwwwwwwwwwwwwwwwwwwwwwwwwwwwwwwwwwwwwwwwwwwwwwwwwwwwwwww wwwwwwwwwwwwwwwwwwwwwwwwwwwwwwwwwwwwwwwwwwwwwwwwwwwwwwwwwwwwwwwwwwwwwwwwwwwwwwwwwwwwwwwwwwwwwwwwwwww wwwwwwwwwwwwwwwwwwwwwwwwwwwwwwwwwwwwwwwwwwwwwwwwwwwwwwwwwwwwwwwwwwwwwwwwwwwwwwwwwwwwwwwwwwwwwwwwwwww wwwwwwwwwwwwwwwwwwwwwwwwwwwwwwwwwwwwwwwwwwwwwwwwwwwwwwwwwwwwwwwwwwwwwwwwwwwwwwwwwwwwwwwwwwwwwwwwwwww wwwwwwwwwwwwwwwwwwwwwwwwwwwwwwwwwwwwwwwwwwwwwwwwwwwwwwwwwwwwwwwwwwwwwwwwwwwwwwwwwwwwwwwwwwwwwwwwwwww wwwwwwwwwwwwwwwwwwwwwwwwwwwwwwwwwwwwwwwwwwwwwwwwwwwwwwwwwwwwwwwwwwwwwwwwwwwwwwwwwwwwwwwwwwwwwwwwwwww wwwwwwwwwwwwwwwwwwwwwwwwwwwwwwwwwwwwwwwwwwwwwwwwwwwwwwwwwwwwwwwwwwwwwwwwwwwwwwwwwwwwwwwwwwwwwwwwwwww wwwwwwwwwwwwwwwwwwwwwwwwwwwwwwwwwwwwwwwwwwwwwwwwwwwwwwwwwwwwwwwwwwwwwwwwwwwwwwwwwwwwwwwwwwwwwwwwwwww wwwwwwwwwwwwwwwwwwwwwwwwwwwwwwwwwwwwwwwwwwwwwwwwwwwwwwwwwwwwwwwwwwwwwwwwwwwwwwwwwwwwwwwwwwwwwwwwwwww wwwwwwwwwwwwwwwwwwwwwwwwwwwwwwwwwwwwwwwwwwwwwwwwwwwwwwwwwwwwwwwwwwwwwwwwwwwwwwwwwwwwwwwwwwwwwwwwwwww wwwwwwwwwwwwwwwwwwwwwwwwwwwwwwwwwwwwwwwwwwwwwwwwwwwwwwwwwwwwwwwwwwwwwwwwwwwwwwwwwwwwwwwwwwwwwwwwwwww wwwwwwwwwwwwwwwwwwwwwwwwwwwwwwwwwwwwwwwwwwwwwwwwwwwwwwwwwwwwwwwwwwwwwwwwwwwwwwwwwwwwwwwwwwwwwwwwwwww wwwwwwwwwwwwwwwwwwwwwwwwwwwwwwwwwwwwwwwwwwwwwwwwwwwwwwwwwwwwwwwwwwwwwwwwwwwwwwwwwwwwwwwwwwwwwwwwwwww wwwwwwwwwwwwwwwwwwwwwwwwwwwwwwwwwwwwwwwwwwwwwwwwwwwwwwwwwwwwwwwwwwwwwwwwwwwwwwwwwwwwwwwwwwwwwwwwwwww wwwwwwwwwwwwwwwwwwwwwwwwwwwwwwwwwwwwwwwwwwwwwwwwwwwwwwwwwwwwwwwwwwwwwwwwwwwwwwwwwwwwwwwwwwwwwwwwwwww wwwwwwwwwwwwwwwwwwwwwwwwwwwwwwwwwwwwwwwwwwwwwwwwwwwwwwwwwwwwwwwwwwwwwwwwwwwwwwwwwwwwwwwwwwwwwwwwwwww wwwwwwwwwwwwwwwwwwwwwwwwwwwwwwwwwwwwwwwwwwwwwwwwwwwwwwwwwwwwwwwwwwwwwwwwwwwwwwwwwwwwwwwwwwwwwwwwwwww wwwwwwwwwwwwwwwwwwwwwwwwwwwwwwwwwwwwwwwwwwwwwwwwwwwwwwwwwwwwwwwwwwwwwwwwwwwwwwwwwwwwwwwwwwwwwwwwwwww wwwwwwwwwwwwwwwwwwwwwwwwwwwwwwwwwwwwwwwwwwwwwwwwwwwwwwwwwwwwwwwwwwwwwwwwwwwwwwwwwwwwwwwwwwwwwwwwwwww wwwwwwwwwwwwwwwwwwwwwwwwwwwwwwwwwwwwwwwwwwwwwwwwwwwwwwwwwwwwwwwwwwwwwwwwwwwwwwwwwwwwwwwwwwwwwwwwwwww wwwwwwwwwwwwwwwwwwwwwwwwwwwwwwwwwwwwwwwwwwwwwwwwwwwwwwwwwwwwwwwwwwwwwwwwwwwwwwwwwwwwwwwwwwwwwwwwwwww wwwwwwwwwwwwwwwwwwwwwwwwwwwwwwwwwwwwwwwwwwwwwwwwwwwwwwwwwwwwwwwwwwwwwwwwwwwwwwwwwwwwwwwwwwwwwwwwwwww wwwwwwwwwwwwwwwwwwwwwwwwwwwwwwwwwwwwwwwwwwwwwwwwwwwwwwwwwwwwwwwwwwwwwwwwwwwwwwwwwwwwwwwwwwwwwwwwwwww wwwwwwwwwwwwwwwwwwwwwwwwwwwwwwwwwwwwwwwwwwwwwwwwwwwwwwwwwwwwwwwwwwwwwwwwwwwwwwwwwwwwwwwwwwwwwwwwwwww wwwwwwwwwwwwwwwwwwwwwwwwwwwwwwwwwwwwwwwwwwwwwwwwwwwwwwwwwwwwwwwwwwwwwwwwwwwwwwwwwwwwwwwwwwwwwwwwwwww wwwwwwwwwwwwwwwwwwwwwwwwwwwwwwwwwwwwwwwwwwwwwwwwwwwwwwwwwwwwwwwwwwwwwwwwwwwwwwwwwwwwwwwwwwwwwwwwwwww wwwwwwwwwwwwwwwwwwwwwwwwwwwwwwwwwwwwwwwwwwwwwwwwwwwwwwwwwwwwwwwwwwwwwwwwwwwwwwwwwwwwwwwwwwwwwwwwwwww wwwwwwwwwwwwwwwwwwwwwwwwwwwwwwwwwwwwwwwwwwwwwwwwwwwwwwwwwwwwwwwwwwwwwwwwwwwwwwwwwwwwwwwwwwwwwwwwwwww wwwwwwwwwwwwwwwwwwwwwwwwwwwwwwwwwwwwwwwwwwwwwwwwwwwwwwwwwwwwwwwwwwwwwwwwwwwwwwwwwwwwwwwwwwwwwwwwwwww wwwwwwwwwwwwwwwwwwwwwwwwwwwwwwwwwwwwwwwwwwwwwwwwwwwwwwwwwwwwwwwwwwwwwwwwwwwwwwwwwwwwwwwwwwwwwwwwwwww wwwwwwwwwwwwwwwwwwwwwwwwwwwwwwwwwwwwwwwwwwwwwwwwwwwwwwwwwwwwwwwwwwwwwwwwwwwwwwwwwwwwwwwwwwwwwwwwwwww wwwwwwwwwwwwwwwwwwwwwwwwwwwwvuuuuuuuuuuuuuuuuuuuuuuuuuuuuuuuuuuuuuuuuuuuuuuuuuuuuuuuuuuuuuuuuuuuuuuu uuuuuuuuuuuuuuuuuuuuuuuuuuuuuuuuuuuuuuuuuuuuuuuuuuuuuuuuuuuuuuuuuuuuuuuuuuuuuuuuuuuuuuuuuuuuuuuuuuuu uuuuuuuuuuuuuuuuuuuuuuuuuuuuuuuuuuuuuuuuuuuuuuuuuuuuuuuuuuuuuuuuuuuuuuuuuuuuuuuuuuuuuuuuuuuuuuuuuuuu uuuuuuuuuuuuuuuuuuuuuuuuuuuuuuuuuuuuuuuuuuuuuuuuuuuuuuuuuuuuuuuuuuuuuuuuuuuuuuuuuuuuuuuuuuuuuuuuuuuu uuuuuuuuuuuuuuuuuuuuuuuuuuuuuuuuuuuuuuuuuuuuuuuuuuuuuuuuuuuuuuuuuuuuuuuuuuuuuuuuuuuuuuuuuuuuuuuuuuuu uuuuuuuuuuuuuuuuuuuuuuuuuuuuuuuuuuuuuuuuuuuuuuuuuuuuuuuuuuuuuuuuuuuuuuuuuuuuuuuuuuuuuuuuuuuuuuuuuuuu uuuuuuuuuuuuuuuuuuuuuuuuuuuuuuuuuuuuuuuuuuuuuuuuuuuuuuuuuuuuuuuuuuuuuuuuuuuuuuuuuuuuuuuuuuuuuuuuuuuu uuuuuuuuuuuuuuuuuuuuuuuuuuuuuuuuuuuuuuuuuuuuuuuuuuuuuuuuuuuuuuuuuuuuuuuuuuuuuuuuuuuuuuuuuuuuuuuuuuuu uuuuuuuuuuuuuuuuuuuuuuuuuuuuuuuuuuuuuuuuuuuuuuuuuuuuuuuuuuuuuuuuuuuuuuuuuuuuuuuuuuuuuuuuuuuuuuuuuuuu uuuuuuuuuuuuuuuuuuuuuuuuuuuuuuuuuuuuuuuuuuuuuuuuuuuuuuuuuuuuuuuuuuuuuuuuuuuuuuuuuuuuuuuuuuuuuuuuuuuu uuuuuuuuuuuuuuuuuuuuuuuuuuuuuuuuuuuuuuuuuuuuuuuuuuuuuuuuuuuuuuuuuuuuuuuuuuuuuuuuuuuuuuuuuuuuuuuuuuuu uuuuuuuuuuuuuuuuuuuuuuuuuuuuuuuuuuuuuuuuuuuuuuuuuuuuuuuuuuuuuuuuuuuuuuuuuuuuuuuuuuuuuuuuuuuuuuuuuuuu uuuuuuuuuuuuuuuuuuuuuuuuuuuuuuuuuuuuuuuuuuuuuuuuuuuuuuuuuuuuuuuuuuuuuuuuuuuuuuuuuuuuuuuuuuuuuuuuuuuu uuuuuuuuuuuuuuuuuuuuuuuuuuuuuuuuuuuuuuuuuuuuuuuuuuuuuuuuuuuuuuuuuuuuuuuuuuuuuuuuuuuuuuuuuuuuuuuuuuuu uuuuuuuuuuuuuuuuuuuuuuuuuuuuuuuuuuuuuuuuuuuuuuuuuuuuuuuuuuuuuuuuuuuuuuuuuuuuuuuuuuuuuuuuuuuuuuuuuuuu uuuuuuuuuuuuuuuuuuuuuuuuuuuuuuuuuuuuuuuuuuuuuuuuuuuuuuuuuuuuuuuuuuuuuuuuuuuuuuuuuuuuuuuuuuuuuuuuuuuu uuuuuuuuuuuuuuuuuuuuuuuuuuuuuuuuuuuuuuuuuuuuuuuuuuuuuuuuuuuuuuuuuuuuuuuuuuuuuuuuuuuuuuuuuuuuuuuuuuuu uuuuuuuuuuuuuuuuuuuuuuuuuuuuuuuuuuuuuuuuuuuuuuuuuuuuuuuuuuuuuuuuuuuuuuuuuuuuuuuuuuuuuuuuuuuuuuuuuuuu uuuuuuuuuuuuuuuuuuuuuuuuuuuuuuuuuuuuuuuuuuuuuuuuuuuuuuuuuuuuuuuuuuuuuuuuuuuuuuuuuuuuuuuuuuuuuuuuuuuu uuuuuuuuuuuuuuuuuuuuuuuuuuuuuuuuuuuuuuuuuuuuuuuuuuuuuuuuuuuuuuuuuuuuuuuuuuuuuuuuuuuuuuuuuuuuuuuuuuuu uuuuuuuuuuuuuuuuuuuuuuuuuuuuuuuuuuuuuuuuuuuuuuuuuuuuuuuuuuuuuuuuuuuuuuuuuuuuuuuuuuuuuuuuuuuuuuuuuuuu uuuuuuuuuuuuuuuuuuuuuuuuuuuuuuuuuuuuuuuuuuuuuuuuuuuuuuuuuuuuuuuuuuuuuuuuuuuuuuuuuuuuuuuuuuuuuuuuuuuu uuuuuuuuuuuuuuuuuuuuuuuuuuuuuuuuuuuuuuuuuuuuuuuuuuuuuuuuuuuuuuuuuuuuuuuuuuuuuuuuuuuuuuuuuuuuuuuuuuuu uuuuuuuuuuuuuuuuuuuuuuuuuuuuuuuuuuuuuuuuuuuuuuuuuuuuuuuuuuuuuuuuuuuuuuuuuuuuuuuuuuuuuuuuuuuuuuuuuuuu uuuuuuuuuuuuuuuuuuuuuuuuuuuuuuuuuuuuuuuuuuuuuuuuuuuuuuuuuuuuuuuuuuuuuuuuuuuuuuuuuuuuuuuuuuuuuuuuuuuu uuuuuuuuuuuuuuuuuuuuuuuuuuuuuuuuuuuuuuuuuuuuuuuuuuuuuuuuuuuuuuuuuuuuuuuuuuuuuuuuuuuuuuuuuuuuuuuuuuuu uuuuuuuuuuuuuuuuuuuuuuuuuuuuuuuuuuuuuuuuuuuuuuuuuuuuuuuuuuuuuuuuuuuuuuuuuuuuuuuuuuuuuuuuuuuuuuuuuuuu uuuuuuuuuuuuuuuuuuuuuuuuuuuuuuuuuuuuuuuuuuuuuuuuuuuuuuuuuuuuuuuuuuuuuuuuuuuuuuuuuuuuuuuuuuuuuuuuuuuu uuuuuuuuuuuuuuuuuuuuuuuuuuuuuuuuuuuuuuuuuuuuuuuuuuuuuuuuuuuuuuuuuuuuuuuuuuuuuuuuuuuuuuuuuuuuuuuuuuuu uuuuuuuuuuuuuuuuuuuuuuuuuuuuuuuuuuuuuuuuuuuuuuuuuuuuuuuuuuuuuuuuuuuuuuuuuuuuuuuuuuuuuuuuuuuuuuuuuuuu uuuuuuuuuuuuuuuuuuuuuuuuuuuuuuuuuuuuuuuuuuuuuuuuuuuuuuuuuuuuuuuuuuuuuuuuuuuuuuuuuuuuuuuuuuuuuuuuuuuu uuuuuuuuuuuuuuuuuuuuuuuuuuuuuuuuuuuuuuuuuuuuuuuuuuuuuuuuuuuuuuuuuuuuuuuuuuuuuuuuuuuuuuuuuuuuuuuuuuuu uuuuuuuuuuuuuuuuuuuuuuuuuuuuuuuuuuuuuuuuuuuuuuuuuuuuuuuuuuuuuuuuuuuuuuuuuuuuuuuuuuuuuuuuuuuuuuuuuuuu uuuuuuuuuuuuuuuuuuuuuuuuuuuuuuuuuuuuuuuuuuuuuuuuuuuuuuuuuuuuuuuuuuuuuuuuuuuuuuuuuuuuuuuuuuuuuuuuuuuu uuuuuuuuuuuuuuuuuuuuuuuuuuuuuuuuuuuuuuuuuuuuuuuuuuuuuuuuuuuuuuuuuuuuuuuuuuuuuuuuuuuuuuuuuuuuuuuuuuuu uuuuuuuuuuuuuuuuuuuuuuuuuuuuuuuuuuuuuuuuuuuuuuuuuuuuuuuuuuuuuuuuuuuuuuuuuuuuuuuuuuuuuuuuuuuuuuuuuuuu uuuuuuuuuuuuuuuuuuuuuuuuuuuuuuuuuuuuuuuuuuuuuuuuuuuuuuuuuuuuuuuuuuuuuuuuuuuuuuuuuuuuuuuuuuuuuuuuuuuu uuuuuuuuuuuuuuuuuuuuuuuuuuuuuuuuuuuuuuuuuuuuuuuuuuuuuuuuuuuuuuuuuuuuuuuuuuuuuuuuuuuuuuuuuuuuuuuuuuuu uuuuuuuuuuuuuuuuuuuuuuuuuuuuuuuuuuuuuuuuuuuuuuuuuuuuuuuuuuuuuuuuuuuuuuuuuuuuuuuuuuuuuuuuuuuuuuuuuuuu uuuuuuuuuuuuuuuuuuuuuuuuuuuuuuuuuuuuuuuuuuuuuuuuuuuuuuuuuuuuuuuuuuuuuuuuuuuuuuuuuuuuuuuuuuuuuuuuuuuu uuuuuuuuuuuuuuuuuuuuuuuuuuuuuuuuuuuuuuuuuuuuuuuuuuuuuuuuuuuuuuuuuuuuuuuuuuuuuuuuuuuuuuuuuuuuuuuuuuuu uuuuuuuuuuuuuuuuuuuuuuuuuuuuuuuuuuuuuuuuuuuuuuuuuuuuuuuuuuuuuuuuuuuuuuuuuuuuuuuuuuuuuuuuuuuuuuuuuuuu uuuuuuuuuuuuuuuuuuuuuuuuuuuuuuuuuuuuuuuuuuuuuuuuuuuuuuuuuuuuuuuuuuuuuuuuuuuuuuuuuuuuuuuuuuuuuuuuuuuu uuuuuuuuuuuuuuuuuuuuuuuuuuuuuuuuuuuuuuuuuuuuuuuuuuuuuuuuuuuuuuuuuuuuuuuuuuuuuuuuuuuuuuuuuuuuuuuuuuuu uuuuuuuuuuuuuuuuuuuuuuuuuuuuuuuuuuuuuuuuuuuuuuuuuuuuuuuuuuuuuuuuuuuuuuuuuuuuuuuuuuuuuuuuuuuuuuuuuuuu uuuuuuuuuuuuuuuuuuuuuuuuuuuuuuuuuuuuuuuuuuuuuuuuuuuuuuuuuuuuuuuuuuuuuuuuuuuuuuuuuuuuuuuuuuuuuuuuuuuu uuuuuuuuuuuuuuuuuuuuuuuuuuuuuuuuuuuuuuuuuuuuuuuuuuuuuuuuuuuuuuuuuuuuuuuuuuuuuuuuuuuuuuuuuuuuuuuuuuuu uuuuuuuuuuuuuuuuuuuuuuuuuuuuuuuuuuuuuuuuuuuuuuuuuuuuuuuuuuuuuuuuuuuuuuuuuuuuuuuuuuuuuuuuuuuuuuuuuuuu uuuuuuuuuuuuuuuuuuuuuuuuuuuuuuuuuuuuuuuuuuuuuuuuuuuuuuuuuuuuuuuuuuuuuuuuuuuuuuuuuuuuuuuuuuuuuuuuuuuu uuuuuuuuuuuuuuuuuuuuuuuuuuuuuuuuuuuuuuuuuuuuuuuuuuuuuuuuuuuuuuuuuuuuuuuuuuuuuuuuuuuuuuuuuuuuuuuuuuuu uuuuuuuuuuuuuuuuuuuuuuuuuuuuuuuuuuuuuuuuuuuuuuuuuuuuuuuuuuuuuuuuuuuuuuuuuuuuuuuuuuuuuuuuuuuuuuuuuuuu uuuuuuuuuuuuuuuuuuuuuuuuuuuuuuuuuuuuuuuuuuuuuuuuuuuuuuuuuuuuuuuuuuuuuuuuuuuuuuuuuuuuuuuuuuuuuuuuuuuu uuuuuuuuuuuuuuuuuuuuuuuuuuuuuuuuuuuuuuuuuuuuuuuuuuuuuuuuuuuuuuuuuuuuuuuuuuuuuuuuuuuuuuuuuuuuuuuuuuuu uuuuuuuuuuuuuuuuuuuuuuuuuuuuuuuuuuuuuuuuuuuuuuuuuuuuuuuuuuuuuuuuuuuuuuuuuuuuuuuuuuuuuuuuuuuuuuuuuuuu uuuuuuuuuuuuuuuuuuuuuuuuuuuuuuuuuuuuuuuuuuuuuuuuuuuuuuuuuuuuuuuuuuuuuuuuuuuuuuuuuuuuuuuuuuuuuuuuuuuu uuuuuuuuuuuuuuuuuuuuuuuuuuuuuuuuuuuuuuuuuuuuuuuuuuuuuuuuuuuuuuuuuuuuuuuuuuuuuuuuuuuuuuuuuuuuuuuuuuuu uuuuuuuuuuuuuuuuuuuuuuuuuuuuuuuuuuuuuuuuuuuuuuuuuuuuuuuuuuuuuuuuuuuuuuuuuuuuuuuuuuuuuuuuuuuuuuuuuuuu uuuuuuuuuuuuuuuuuuuuuuuuuuuuuuuuuuuuuuuuuuuuuuuuuuuuuuuuuuuuuuuuuuuuuuuuuuuuuuuuuuuuuuuuuuuuuuuuuuuu uuuuuuuuuuuuuuuuuuuuuuuuuuuuuuuuuuuuuuuuuuuuuuuuuuuuuuuuuuuuuuuuuuuuuuuuuuuuuuuuuuuuuuuuuuuuuuuuuuuu uuuuuuuuuuuuuuuuuuuuuuuuuuuuuuuuuuuuuuuuuuuuuuuuuuuuuuuuuuuuuuuuuuuuuuuuuuuuuuuuuuuuuuuuuuuuuuuuuuuu uuuuuuuuuuuuuuuuuuuuuuuuuuuuuuuuuuuuuuuuuuuuuuuuuuuuuuuuuuuuuuuuuuuuuuuuuuuuuuuuuuuuuuuuuuuuuuuuuuuu uuuuuuuuuuuuuuuuuuuuuuuuuuuuuuuuuuuuuuuuuuuuuuuuuuuuuuuuuuuuuuuuuuuuuuuuuuuuuuuuuuuuuuuuuuuuuuuuuuuu uuuuuuuuuuuuuuuuuuuuuuuuuuuuuuuuuuuuuuuuuuuuuuuuuuuuuuuuuuuuuuuuuuuuuuuuuuuuuuuuuuuuuuuuuuuuuuuuuuuu uuuuuuuuuuuuuuuuuuuuuuuuuuuuuuuuuuuuuuuuuuuuuuuuuuuuuuuuuuuuuuuuuuuuuuuuuuuuuuuuuuuuuuuuuuuuuuuuuuuu uuuuuuuuuuuuuuuuuuuuuuuuuuuuuuuuuuuuuuuuuuuuuuuuuuuuuuuuuuuuuuuuuuuuuuuuuuuuuuuuuuuuuuuuuuuuuuuuuuuu uuuuuuuuuuuuuuuuuuuuuuuuuuuuuuuuuuuuuuuuuuuuuuuuuuuuuuuuuuuuuuuuuuuuuuuuuuuuuuuuuuuuuuuuuuuuuuuuuuuu uuuuuuuuuuuuuuuuuuuuuuuuuuuuuuuuuuuuuuuuuuuuuuuuuuuuuuuuuuuuuuuuuuuuuuuuuuuuuuuuuuuuuuuuuuuuuuuuuuuu uuuuuuuuuuuuuuuuuuuuuuuuuuuuuuuuuuuuuuuuuuuuuuuuuuuuuuuuuuuuuuuuuuuuuuuuuuuuuuuuuuuuuuuuuuuuuuuuuuuu uuuuuuuuuuuuuuuuuuuuuuuuuuuuuuuuuuuuuuuuuuuuuuuuuuuuuuuuuuuuuuuuuuuuuuuuuuuuuuuuuuuuuuuuuuuuuuuuuuuu uuuuuuuuuuuuuuuuuuuuuuuuuuuuuuuuuuuuuuuuuuuuuuuuuuuuuuuuuuuuuuuuuuuuuuuuuuuuuuuuuuuuuuuuuuuuuuuuuuuu uuuuuuuuuuuuuuuuuuuuuuuuuuuuuuuuuuuuuuuuuuuuuuuuuuuuuuuuuuuuuuuuuuuuuuuuuuuuuuuuuuuuuuuuuuuuuuuuuuuu uuuuuuuuuuuuuuuuuuuuuuuuuuuuuuuuuuuuuuuuuuuuuuuuuuuuuuuuuuuuuuuuuuuuuuuuuuuuuuuuuuuuuuuuuuuuuuuuuuuu uuuuuuuuuuuuuuuuuuuuuuuuuuuuuuuuuuuuuuuuuuuuuuuuuuuuuuuuuuuuuuuuuuuuuuuuuuuuuuuuuuuuuuuuuuuuuuuuuuuu uuuuuuuuuuuuuuuuuuuuuuuuuuuuuuuuuuuuuuuuuuuuuuuuuuuuuuuuuuuuuuuuuuuuuuuuuuuuuuuuuuuuuuuuuuuuuuuuuuuu uuuuuuuuuuuuuuuuuuuuuuuuuuuuuuuuuuuuuuuuuuuuuuuuuuuuuuuuuuuuuuuuuuuuuuuuuuuuuuuuuuuuuuuuuuuuuuuuuuuu uuuuuuuuuuuuuuuuuuuuuuuuuuuuuuuuuuuuuuuuuuuuuuuuuuuuuuuuuuuuuuuuuuuuuuuuuuuuuuuuuuuuuuuuuuuuuuuuuuuu uuuuuuuuuuuuuuuuuuuuuuuuuuuuuuuuuuuuuuuuuuuuuuuuuuuuuuuuuuuuuuuuuuuuuuuuuuuuuuuuuuuuuuuuuuuuuuuuuuuu uuuuuuuuuuuuuuuuuuuuuuuuuuuuuuuuuuuuuuuuuuuuuuuuuuuuuuuuuuuuuuuuuuuuuuuuuuuuuuuuuuuuuuuuuuuuuuuuuuuu uuuuuuuuuuuuuuuuuuuuuuuuuuuuuuuuuuuuuuuuuuuuuuuuuuuuuuuuuuuuuuuuuuuuuuuuuuuuuuuuuuuuuuuuuuuuuuuuuuuu uuuuuuuuuuuuuuuuuuuuuuuuuuuuuuuuuuuuuuuuuuuuuuuuuuuuuuuuuuuuuuuuuuuuuuuuuuuuuuuuuuuuuuuuuuuuuuuuuuuu uuuuuuuuuuuuuuuuuuuuuuuuuuuuuuuuuuuuuuuuuuuuuuuuuuuuuuuuuuuuuuuuuuuuuuuuuuuuuuuuuuuuuuuuuuuuuuuuuuuu uuuuuuuuuuuuuuuuuuuuuuuuuuuuuuuuuuuuuuuuuuuuuuuuuuuuuuuuuuuuuuuuuuuuuuuuuuuuuuuuuuuuuuuuuuuuuuuuuuuu uuuuuuuuuuuuuuuuuuuuuuuuuuuuuuuuuuuuuuuuuuuuuuuuuuuuuuuuuuuuuuuuuuuuuuuuuuuuuuuuuuuuuuuuuuuuuuuuuuuu uuuuuuuuuuuuuuuuuuuuuuuuuuuuuuuuuuuuuuuuuuuuuuuuuuuuuuuuuuuuuuuuuuuuuuuuuuuuuuuuuuuuuuuuuuuuuuuuuuuu uuuuuuuuuuuuuuuuuuuuuuuuuuuuuuuuuuuuuuuuuuuuuuuuuuuuuuuuuuuuuuuuuuuuuuuuuuuuuuuuuuuuuuuuuuuuuuuuuuuu uuuuuuuuuuuuuuuuuuuuuuuuuuuuuuuuuuuuuuuuuuuuuuuuuuuuuuuuuuuuuuuuuuuuuuuuuuuuuuuuuuuuuuuuuuuuuuuuuuuu uuuuuuuuuuuuuuuuuuuuuuuuuuuuuuuuuuuuuuuuuuuuuuuuuuuuuuuuuuuuuuuuuuuuuuuuuuuuuuuuuuuuuuuuuuuuuuuuuuuu uuuuuuuuuuuuuuuuuuuuuuuuuuuuuuuuuuuuuuuuuuuuuuuuuuuuuuuuuuuuuuuuuuuuuuuuuuuuuuuuuuuuuuuuuuuuuuuuuuuu uuuuuuuuuuuuuuuuuuuuuuuuuuuuuuuuuuuuuuuuuuuuuuuuuuuuuuuuuuuuuuuuuuuuuuuuuuuuuuuuuuuuuuuuuuuuuuuuuuuu uuuuuuuuuuuuuuuuuuuuuuuuuuuuuuuuuuuuuuuuuuuuuuuuuuuuuuuuuuuuuuuuuuuuuuuuuuuuuuuuuuuuuuuuuuuuuuuuuuuu uuuuuuuuuuuuuuuuuuuuuuuuuuuuuuuuuuuuuuuuuuuuuuuuuuuuuuuuuuuuuuuuuuuuuuuuuuuuuuuuuuuuuuuuuuuuuuuuuuuu uuuuuuuuuuuuuuuuuuuuuuuuuuuuuuuuuuuuuuuuuuuuuuuuuuuuuuuuuuuuuuuuuuuuuuuuuuuuuuuuuuuuuuuuuuuuuuuuuuuu uuuuuuuuuuuuuuuuuuuuuuuuuuuuuuuuuuuuuuuuuuuuuuuuuuuuuuuuuuuuuuuuuuuuuuuuuuuuuuuuuuuuuuuuuuuuuuuuuuuu uuuuuuuuuuuuuuuuuuuuuuuuuuuuuuuuuuuuuuuuuuuuuuuuuuuuuuuuuuuuuuuuuuuuuuuuuuuuuuuuuuuuuuuuuuuuuuuuuuuu uuuuuuuuuuuuuuuuuuuuuuuuuuuuuuuuuuuuuuuuuuuuuuuuuuuuuuuuuuuuuuuuuuuuuuuuuuuuuuuuuuuuuuuuuuuuuuuuuuuu uuuuuuuuuuuuuuuuuuuuuuuuuuuuuuuuuuuuuuuuuuuuuuuuuuuuuuuuuuuuuuuuuuuuuuuuuuuuuuuuuuuuuuuuuuuuuuuuuuuu uuuuuuuuuuuuuuuuuuuuuuuuuuuuuuuuuuuuuuuuuuuuuuuuuuuuuuuuuuuuuuuuuuuuuuuuuuuuuuuuuuuuuuuuuuuuuuuuuuuu uuuuuuuuuuuuuuuuuuuuuuuuuuuuuuuuuuuuuuuuuuuuuuuuuuuuuuuuuuuuuuuuuuuuuuuuuuuuuuuuuuuuuuuuuuuuuuuuuuuu uuuuuuuuuuuuuuuuuuuuuuuuuuuuuuuuuuuuuuuuuuuuuuuuuuuuuuuuuuuuuuuuuuuuuuuuuuuuuuuuuuuuuuuuuuuuuuuuuuuu uuuuuuuuuuuuuuuuuuuuuuuuuuuuuuuuuuuuuuuuuuuuuuuuuuuuuuuuuuuuuuuuuuuuuuuuuuuuuuuuuuuuuuuuuuuuuuuuuuuu uuuuuuuuuuuuuuuuuuuuuuuuuuuuuuuuuuuuuuuuuuuuuuuuuuuuuuuuuuuuuuuuuuuuuuuuuuuuuuuuuuuuuuuuuuuuuuuuuuuu uuuuuuuuuuuuuuuuuuuuuuuuuuuuuuuuuuuuuuuuuuuuuuuuuuuuuuuuuuuuuuuuuuuuuuuuuuuuuuuuuuuuuuuuuuuuuuuuuuuu uuuuuuuuuuuuuuuuuuuuuuuuuuuuuuuuuuuuuuuuuuuuuuuuuuuuuuuuuuuuuuuuuuuuuuuuuuuuuuuuuuuuuuuuuuuuuuuuuuuu uuuuuuuuuuuuuuuuuuuuuuuuuuuuuuuuuuuuuuuuuuuuuuuuuuuuuuuuuuuuuuuuuuuuuuuuuuuuuuuuuuuuuuuuuuuuuuuuuuuu uuuuuuuuuuuuuuuuuuuuuuuuuuuuuuuuuuuuuuuuuuuuuuuuuuuuuuuuuuuuuuuuuuuuuuuuuuuuuuuuuuuuuuuuuuuuuuuuuuuu uuuuuuuuuuuuuuuuuuuuuuuuuuuuuuuuuuuuuuuuuuuuuuuuuuuuuuuuuuuuuuuuuuuuuuuuuuuuuuuuuuuuuuuuuuuuuuuuuuuu uuuuuuuuuuuuuuuuuuuuuuuuuuuuuuuuuuuuuuuuuuuuuuuuuuuuuuuuuuuuuuuuuuuuuuuuuuuuuuuuuuuuuuuuuuuuuuuuuuuu uuuuuuuuuuuuuuuuuuuuuuuuuuuuuuuuuuuuuuuuuuuuuuuuuuuuuuuuuuuuuuuuuuuuuuuuuuuuuuuuuuuuuuuuuuuuuuuuuuuu uuuuuuuuuuuuuuuuuuuuuuuuuuuuuuuuuuuuuuuuuuuuuuuuuuuuuuuuuuuuuuuuuuuuuuuuuuuuuuuuuuuuuuuuuuuuuuuuuuuu uuuuuuuuuuuuuuuuuuuuuuuuuuuuuuuuuuuuuuuuuuuuuuuuuuuuuuuuuuuuuuuuuuuuuuuuuuuuuuuuuuuuuuuuuuuuuuuuuuuu uuuuuuuuuuuuuuuuuuuuuuuuuuuuuuuuuuuuuuuuuuuuuuuuuuuuuuuuuuuuuuuuuuuuuuuuuuuuuuuuuuuuuuuuuuuuuuuuuuuu uuuuuuuuuuuuuuuuuuuuuuuuuuuuuuuuuuuuuuuuuuuuuuuuuuuuuuuuuuuuuuuuuuuuuuuuuuuuuuuuuuuuuuuuuuuuuuuuuuuu uuuuuuuuuuuuuuuuuuuuuuuuuuuuuuuuuuuuuuuuuuuuuuuuuuuuuuuuuuuuuuuuuuuuuuuuuuuuuuuuuuuuuuuuuuuuuuuuuuuu uuuuuuuuuuuuuuuuuuuuuuuuuuuuuuuuuuuuuuuuuuuuuuuuuuuuuuuuuuuuuuuuuuuuuuuuuuuuuuuuuuuuuuuuuuuuuuuuuuuu uuuuuuuuuuuuuuuuuuuuuuuuuuuuuuuuuuuuuuuuuuuuuuuuuuuuuuuuuuuuuuuuuuuuuuuuuuuuuuuuuuuuuuuuuuuuuuuuuuuu uuuuuuuuuuuuuuuuuuuuuuuuuuuuuuuuuuuuuuuuuuuuuuuuuuuuuuuuuuuuuuuuuuuuuuuuuuuuuuuuuuuuuuuuuuuuuuuuuuuu uuuuuuuuuuuuuuuuuuuuuuuuuuuuuuuuuuuuuuuuuuuuuuuuuuuuuuuuuuuuuuuuuuuuuuuuuuuuuuuuuuuuuuuuuuuuuuuuuuuu uuuuuuuuuuuuuuuuuuuuuuuuuuuuuuuuuuuuuuuuuuuuuuuuuuuuuuuuuuuuuuuuuuuuuuuuuuuuuuuuuuuuuuuuuuuuuuuuuuuu uuuuuuuuuuuuuuuuuuuuuuuuuuuuuuuuuuuuuuuuuuuuuuuuuuuuuuuuuuuuuuuuuuuuuuuuuuuuuuuuuuuuuuuuuuuuuuuuuuuu uuuuuuuuuuuuuuuuuuuuuuuuuuuuuuuuuuuuuuuuuuuuuuuuuuuuuuuuuuuuuuuuuuuuuuuuuuuuuuuuuuuuuuuuuuuuuuuuuuuu uuuuuuuuuuuuuuuuuuuuuuuuuuuuuuuuuuuuuuuuuuuuuuuuuuuuuuuuuuuuuuuuuuuuuuuuuuuuuuuuuuuuuuuuuuuuuuuuuuuu uuuuuuuuuuuuuuuuuuuuuuuuuuuuuuuuuuuuuuuuuuuuuuuuuuuuuuuuuuuuuuuuuuuuuuuuuuuuuuuuuuuuuuuuuuuuuuuuuuuu uuuuuuuuuuuuuuuuuuuuuuuuuuuuuuuuuuuuuuuuuuuuuuuuuuuuuuuuuuuuuuuuuuuuuuuuuuuuuuuuuuuuuuuuuuuuuuuuuuuu uuuuuuuuuuuuuuuuuuuuuuuuuuuuuuuuuuuuuuuuuuuuuuuuuuuuuuuuuuuuuuuuuuuuuuuuuuuuuuuuuuuuuuuuuuuuuuuuuuuu uuuuuuuuuuuuuuuuuuuuuuuuuuuuuuuuuuuuuuuuuuuuuuuuuuuuuuuuuuuuuuuuuuuuuuuuuuuuuuuuuuuuuuuuuuuuuuuuuuuu uuuuuuuuuuuuuuuuuuuuuuuuuuuuuuuuuuuuuuuuuuuuuuuuuuuuuuuuuuuuuuuuuuuuuuuuuuuuuuuuuuuuuuuuuuuuuuuuuuuu uuuuuuuuuuuuuuuuuuuuuuuuuuuuuuuuuuuuuuuuuuuuuuuuuuuuuuuuuuuuuuuuuuuuuuuuuuuuuuuuuuuuuuuuuuuuuuuuuuuu uuuuuuuuuuuuuuuuuuuuuuuuuuuuuuuuuuuuuuuuuuuuuuuuuuuuuuuuuuuuuuuuuuuuuuuuuuuuuuuuuuuuuuuuuuuuuuuuuuuu uuuuuuuuuuuuuuuuuuuuuuuuuuuuuuuuuuuuuuuuuuuuuuuuuuuuuuuuuuuuuuuuuuuuuuuuuuuuuuuuuuuuuuuuuuuuuuuuuuuu uuuuuuuuuuuuuuuuuuuuuuuuuuuuuuuuuuuuuuuuuuuuuuuuuuuuuuuuuuuuuuuuuuuuuuuuuuuuuuuuuuuuuuuuuuuuuuuuuuuu uuuuuuuuuuuuuuuuuuuuuuuuuuuuuuuuuuuuuuuuuuuuuuuuuuuuuuuuuuuuuuuuuuuuuuuuuuuuuuuuuuuuuuuuuuuuuuuuuuuu uuuuuuuuuuuuuuuuuuuuuuuuuuuuuuuuuuuuuuuuuuuuuuuuuuuuuuuuuuuuuuuuuuuuuuuuuuuuuuuuuuuuuuuuuuuuuuuuuuuu uuuuuuuuuuuuuuuuuuuuuuuuuuuuuuuuuuuuuuuuuuuuuuuuuuuuuuuuuuuuuuuuuuuuuuuuuuuuuuuuuuuuuuuuuuuuuuuuuuuu uuuuuuuuuuuuuuuuuuuuuuuuuuuuuuuuuuuuuuuuuuuuuuuuuuuuuuuuuuuuuuuuuuuuuuuuuuuuuuuuuuuuuuuuuuuuuuuuuuuu uuuuuuuuuuuuuuuuuuuuuuuuuuuuuuuuuuuuuuuuuuuuuuuuuuuuuuuuuuuuuuuuuuuuuuuuuuuuuuuuuuuuuuuuuuuuuuuuuuuu uuuuuuuuuuuuuuuuuuuuuuuuuuuuuuuuuuuuuuuuuuuuuuuuuuuuuuuuuuuuuuuuuuuuuuuuuuuuuuuuuuuuuuuuuuuuuuuuuuuu uuuuuuuuuuuuuuuuuuuuuuuuuuuuuuuuuuuuuuuuuuuuuuuuuuuuuuuuuuuuuuuuuuuuuuuuuuuuuuuuuuuuuuuuuuuuuuuuuuuu uuuuuuuuuuuuuuuuuuuuuuuuuuuuuuuuuuuuuuuuuuuuuuuuuuuuuuuuuuuuuuuuuuuuuuuuuuuuuuuuuuuuuuuuuuuuuuuuuuuu uuuuuuuuuuuuuuuuuuuuuuuuuuuuuuuuuuuuuuuuuuuuuuuuuuuuuuuuuuuuuuuuuuuuuuuuuuuuuuuuuuuuuuuuuuuuuuuuuuuu uuuuuuuuuuuuuuuuuuuuuuuuuuuuuuuuuuuuuuuuuuuuuuuuuuuuuuuuuuuuuuuuuuuuuuuuuuuuuuuuuuuuuuuuuuuuuuuuuuuu uuuuuuuuuuuuuuuuuuuuuuuuuuuuuuuuuuuuuuuuuuuuuuuuuuuuuuuuuuuuuuuuuuuuuuuuuuuuuuuuuuuuuuuuuuuuuuuuuuuu uuuuuuuuuuuuuuuuuuuuuuuuuuuuuuuuuuuuuuuuuuuuuuuuuuuuuuuuuuuuuuuuuuuuuuuuuuuuuuuuuuuuuuuuuuuuuuuuuuuu uuuuuuuuuuuuuuuuuuuuuuuuuuuuuuuuuuuuuuuuuuuuuuuuuuuuuuuuuuuuuuuuuuuuuuuuuuuuuuuuuuuuuuuuuuuuuuuuuuuu uuuuuuuuuuuuuuuuuuuuuuuuuuuuuuuuuuuuuuuuuuuuuuuuuuuuuuuuuuuuuuuuuuuuuuuuuuuuuuuuuuuuuuuuuuuuuuuuuuuu uuuuuuuuuuuuuuuuuuuuuuuuuuuuuuuuuuuuuuuuuuuuuuuuuuuuuuuuuuuuuuuuuuuuuuuuuuuuuuuuuuuuuuuuuuuuuuuuuuuu uuuuuuuuuuuuuuuuuuuuuuuuuuuuuuuuuuuuuuuuuuuuuuuuuuuuuuuuuuuuuuuuuuuuuuuuuuuuuuuuuuuuuuuuuuuuuuuuuuuu uuuuuuuuuuuuuuuuuuuuuuuuuuuuuuuuuuuuuuuuuuuuuuuuuuuuuuuuuuuuuuuuuuuuuuuuuuuuuuuuuuuuuuuuuuuuuuuuuuuu uuuuuuuuuuuuuuuuuuuuuuuuuuuuuuuuuuuuuuuuuuuuuuuuuuuuuuuuuuuuuuuuuuuuuuuuuuuuuuuuuuuuuuuuuuuuuuuuuuuu uuuuuuuuuuuuuuuuuuuuuuuuuuuuuuuuuuuuuuuuuuuuuuuuuuuuuuuuuuuuup Reason For Visit: DIABETES HAND CELLULITIS BIPOLAR Physical Exam Vital Signs: Temp Pulse Resp BP Pulse Ox 98.4 F 68 16 138/74 H 98 09/29/18 08:12 09/29/18 08:12 09/29/18 08:12 09/29/18 08:12 09/29/18 08:12 Intake & Output 09/28/18 09/29/18 09/30/18 06:59 06:59 06:59 Intake Total 780 505 765 Balance 780 638 765 Weight 64.5 kg 65.5 kg General appearance: PRESENT: no acute distress, well-developed, well-nourished Head exam: PRESENT: atraumatic, normocephalic Eye exam: PRESENT: conjunctiva pink, EOMI, PERRLA. ABSENT: scleral icterus Ear exam: PRESENT: normal external ear exam Mouth exam: PRESENT: moist, tongue midline Teeth exam: PRESENT: poor dentation Neck exam: ABSENT: carotid bruit, JVD, lymphadenopathy, thyromegaly Respiratory exam: PRESENT: symmetrical, unlabored. ABSENT: rales, rhonchi, wheezes Cardiovascular exam: PRESENT: RRR. ABSENT: diastolic murmur, rubs, systolic murmur Pulses: PRESENT: normal radial pulses, normal dorsalis pedis pul Vascular exam: PRESENT: normal capillary refill GI/Abdominal exam: PRESENT: normal bowel sounds, soft. ABSENT: distended, guarding, mass, organolmegaly, rebound, tenderness Rectal exam: PRESENT: deferred Extremities exam: PRESENT: full ROM. ABSENT: calf tenderness, clubbing, pedal edema Musculoskeletal exam: PRESENT: ambulatory, full ROM Neurological exam: PRESENT: alert, awake, oriented to person, oriented to place, oriented to time, oriented to situation Psychiatric exam: PRESENT: unusual affect. ABSENT: appropriate affect, homicidal ideation, suicidal ideation Skin exam: PRESENT: dry, intact, warm. ABSENT: cyanosis, rash Results Laboratory Results: 09/28/18 04:12 09/28/18 04:12 Status: Imported from PACS Assessment and Plan - Diagnosis (1) Abscess of dorsum of left hand Is this a current diagnosis for this admission?: Yes Plan: Patient had incision and drainage of both hands by Dr. Cherry, orthopedic surgery on 09/19/2018. Cultures are growing enterococcus gallinarium Per ID, continue IV Unasyn for 10-14 days. Currently on day 7 Daily dressing changes and daily removal of approx. 3-5" iodoform from each hand until there is none left (per Dr. Cherry) (2) Abscess of dorsum of right hand Is this a current diagnosis for this admission?: Yes Plan: As above. 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 Lantus 10U Q12hr (4) Gram-positive cocci bacteremia Is this a current diagnosis for this admission?: Yes Plan: Patient had gram-positive cocci in 1 bottle. Culture grew Peptostreptococcus. Wound cultures grew the same. Patient does admit to injecting tap water and soap into both hands for attention seeking behavior. Repeat blood cultures are negative at 24 hrs. Patient is afebrile and nontoxic appearing ID consulted, recommend continuing Unasyn IV while inpatient and switching to amoxicillin PO when ready for discharge, total treatment for approx. 10-14 days (5) Hypertension Is this a current diagnosis for this admission?: Yes Plan: H HTN Blood pressure well controlled Continue home dose metoprolol (6) Self-harming behavior Is this a current diagnosis for this admission?: Yes Plan: Patient admits to injecting tap water into dorsal part of both hands in response to depression/anxiety surrounding current malpractice suits filed against her PSYCH consulted, recommend continued IVC Plan to send back to inpatient PSYCH following [facility] hospitalization One-to-one sitter for safety - Time Time Spent with patient: 15-24 minutes Medications reviewed and adjusted accordingly: Yes Anticipated discharge: Other - INPATIENT PSYCH - Inpatient Certification Based on my medical assessment, after consideration of the patient's comorbidities, presenting symptoms, or acuity I expect that the services needed warrant INPATIENT care.: Yes I certify that my determination is in accordance with my understanding of Medicare's requirements for reasonable and necessary INPATIENT services [42 CFR 412.3e].: Yes Medical Necessity: Risk of Complication if Not Cared For in Hospital, Other - REMAINS ON IVC PAPERS PER PSYCH
[2018-09-29] MEDS: ZOLPIDEM TARTRATE 5 MG TABLET PO SCH (23:44)
[2018-09-29] MEDS: FLUCONAZOLE 100 MG TABLET PO SCH (23:44)
[2018-09-29] MEDS: MELATONIN 3 MG TABLET PO SCH (23:46)
--- NOTE | 2018-09-30 07:29 | PDOC PROGRESS REPORT ---
Subjective Progress Note for:: 09/30/18 Reason For Visit: DIABETES HAND CELLULITIS BIPOLAR 58-year-old white female status post I&D of bilateral upper extremities for enterococcus cellulitis/abscess Physical Exam Vital Signs: Temp Pulse Resp BP Pulse Ox 36.7 C 71 16 137/62 H 97 09/29/18 23:32 09/29/18 23:32 09/29/18 23:32 09/29/18 23:32 09/29/18 23:32 Intake & Output 09/29/18 09/30/18 10/01/18 06:59 06:59 06:59 Intake Total 555 1245 Balance 555 1245 Weight 65.5 kg 65.5 kg Physical Exam: Middle-aged white female sitting up in bed. Patient's alert, cooperative, and appropriate. General appearance: PRESENT: no acute distress Head exam: PRESENT: normocephalic Respiratory exam: PRESENT: unlabored Cardiovascular exam: PRESENT: RRR Vascular exam: PRESENT: normal capillary refill GI/Abdominal exam: PRESENT: soft Rectal exam: PRESENT: deferred Extremities exam: PRESENT: other - Patient is wrapped in Coban compressive dressings bilaterally. Some residual erythema/induration in the central portion of the MCP region of the left hand. Neurological exam: PRESENT: alert, awake, oriented to person, oriented to place, oriented to time, oriented to situation. ABSENT: motor sensory deficit Psychiatric exam: PRESENT: appropriate affect, normal mood. ABSENT: homicidal ideation, suicidal ideation Skin exam: PRESENT: dry, intact, warm. ABSENT: cyanosis, rash Results Laboratory Results: 09/28/18 04:12 09/28/18 04:12 Status: Imported from PACS Assessment & Plan - Diagnosis (1) Abscess of dorsum of left hand Is this a current diagnosis for this admission?: Yes Plan: At this point infectious disease has recommended 2 weeks of IV Unasyn. Will obtain a PICC line to facilitate this. I have also taken the liberty of ordering an occupational therapy consult for range of motion of the digits. Resting can continue to be changed by nursing with advancement of the iodoform gauze by 3 to 4 inches with each dressing change. (2) Abscess of dorsum of right hand Is this a current diagnosis for this admission?: Yes (3) Cellulitis of hand Is this a current diagnosis for this admission?: Yes - Plan Summary Plan Summary: Continue IV Unasyn, dressing changes, and observation
[2018-09-30] MEDS: HEPARIN SOD (PORCINE) 5,000 UNIT/ML 1 ML SYRINGE SUBCUT SCH ×3 (08:13→22:50)
[2018-09-30] MEDS: INSULIN LISPRO 100 UNIT/ML 3 ML VIAL SUBCUT SCH ×4 (08:13→22:51)
[2018-09-30] MEDS: AMPICILLIN SODIUM/SULBACTAM NA 3 GM in NORMAL SALINE 100 ML IV SCH ×4 (08:15→23:13)
[2018-09-30] MEDS: DULOXETINE HCL 30 MG CAPSULE.DR PO SCH (10:23)
[2018-09-30] MEDS: DOCUSATE SODIUM 100 MG CAPSULE PO SCH ×2 (10:23→17:46)
[2018-09-30] MEDS: CLONAZEPAM 1 MG TABLET PO SCH (10:23)
[2018-09-30] MEDS: METOPROLOL TARTRATE 50 MG TABLET PO SCH ×2 (10:24→22:50)
[2018-09-30] MEDS: ARIPIPRAZOLE 5 MG TABLET PO SCH (10:24)
[2018-09-30] MEDS: PANTOPRAZOLE SODIUM 40 MG TABLET.DR PO SCH (10:24)
[2018-09-30] MEDS: INSULIN GLARGINE,HUM.REC.ANLOG 1,000 UNIT/10 ML VIAL SUBCUT SCH ×2 (11:09→22:53)
--- NOTE | 2018-09-30 21:56 | PDOC PROGRESS REPORT ---
Subjective Progress Note for:: 09/30/18 Subjective:: 56 y.o. F with a PMH of HTN, GERD, depression and anxiety. She was admitted for reportedly injecting the dorsal part of her hands with tap water. She is admitted to the hospitalist service with ortho consulting. Psych is also consulted, the patient remains under IVC. The patient was seen on rounds. Patient appears in good spirits. She is asking for a PICC line so she can "finish antibiotic therapy at home." Verified with PSYCH that the plan for this patient is to return to [facility] psych. Discussed with Dr. Cherry that this patient is not appropriate for a PICC and she can d/c on PO antibiotics when appropriate. Of note, the patient has received 7 days of antibiotics and will require 7 more, can be IV or PO according to ID consultation note. no other changes to treatment plan. Patient will remain at [facility] for wound care and antibiotics uuuuu uuuuuuuuuuuuuuuuuuuuuuuuuuuuuuuuuuuuuuuuuuuuuuuuuuuuuuuuuuuuuuuuuuuuuuuuuuuuuuuuuuuuuuuuuuuuuuuuuuu uuuuuuuuuuuuuuuuuuuuuuuuuuuuuuuuuuuuuuuuuuuuuuuuuuuuuuuuuuuuuuuuuuuuuuuuuuuuuuuuuuuuuuuuuuuuuuuuuuuu uuuuuuuuuuuuuuuuuuuuuuuuuuuuuuuuuuuuuuuuuuuuuuuuuuuuuuuuuuuuuuuuuuuuuuuuuuuuuuuuuuuuuuuuuuuuuuuuuuuu uuuuuuuuuuuuuuuuuuuuuuuuuuuuuuuuuuuuuuuuuuuuuuuuuuuuuuuuuuuuuuuuuuuuuuuuuuuuuuuuuuuuuuuuuuuuuuuuuuuu uuuuuuuuuuuuuuuuuuuuuuuuuuuuuuuuuuuuuuuuuuuuuuuuuuuuuuuuuuuuuuuuuuuuuuuuuuuuuuuuuuuuuuuuuuuuuuuuuuuu uuuuuuuuuuuuuuuuuuuuuuuuuuuuuuuuuuuuuuuuuuuuuuuuuuuuuuuuuuuuuuuuuuuuuuuuuuuuuuuuuuuuuuuuuuuuuuuuuuuu uuuuuuuuuuuuuuuuuuuuuuuuuuuuuuuuuuuuuuuuuuuuuuuuuuuuuuuuuuuuuuuuuuuuuuuuuuuuuuuuuuuuuuuuuuuuuuuuuuuu uuuuuuuuuuuuuuuuuuuuuuuuuuuuuuuuuuuuuuuuuuuuuuuuuuuuuuuuuuuuuuuuuuuuuuuuuuuuuuuuuuuuuuuuuuuuuuuuuuuu uuuuuuuuuuuuuuuuuuuuuuuuuuuuuuuuuuuuuuuuuuuuuuuuuuuuuuuuuuuuuuuuuuuuuuuuuuuuuuuuuuuuuuuuuuuuuuuuuuuu uuuuuuuuuuuuuuuuuuuuuuuuuuuuuuuuuuuuuuuuuuuuuuuuuuuuuuuuuuuuuuuuuuuuuuuuuuuuuuuuuuuuuuuuuuuuuuuuuuuu uuuuuuuuuuuuuuuuuuuuuuuuuuuuuuuuuuuuuuuuuuuuuuuuuuuuuuuuuuuuuuuuuuuuuuuuuuuuuuuuuuuuuuuuuuuuuuuuuuuu uuuuuuuuuuuuuuuuuuuuuuuuuuuuuuuuuuuuuuuuuuuuuuuuuuuuuuuuuuuuuuuuuuuuuuuuuuuuuuuuuuuuuuuuuuuuuuuuuuuu uuuuuuuuuuuuuuuuuuuuuuuuuuuuuuuuuuuuuuuuuuuuuuuuuuuuuuuuuuuuuuuuuuuuuuuuuuuuuuuuuuuuuuuuuuuuuuuuuuuu uuuuuuuuuuuuuuuuuuuuuuuuuuuuuuuuuuuuuuuuuuuuuuuuuuuuuuuuuuuuuuuuuuuuuuuuuuuuuuuuuuuuuuuuuuuuuuuuuuuu uuuuuuuuuuuuuuuuuuuuuuuuuuuuuuuuuuuuuuuuuuuuuuuuuuuuuuuuuuuuuuuuuuuuuuuuuuuuuuuuuuuuuuuuuuuuuuuuuuuu uuuuuuuuuuuuuuuuuuuuuuuuuuuuuuuuuuuuuuuuuuuuuuuuuuuuuuuuuuuuuuuuuuuuuuuuuuuuuuuuuuuuuuuuuuuuuuuuuuuu uuuuuuuuuuuuuuuuuuuuuuuuuuuuuuuuuuuuuuuuuuuuuuuuuuuuuuuuuuuuuuuuuuuuuuuuuuuuuuuuuuuuuuuuuuuuuuuuuuuu uuuuuuuuuuuuuuuuuuuuuuuuuuuuuuuuuuuuuuuuuuuuuuuuuuuuuuuuuuuuuuuuuuuuuuuuuuuuuuuuuuuuuuuuuuuuuuuuuuuu uuuuuuuuuuuuuuuuuuuuuuuuuuuuuuuuuuuuuuuuuuuuuuuuuuuuuuuuuuuuuuuuuuuuuuuuuuuuuuuuuuuuuuuuuuuuuuuuuuuu uuuuuuuuuuuuuuuuuuuuuuuuuuuuuuuuuuuuuuuuuuuuuuuuuuuuuuuuuuuuuuuuuuuuuuuuuuuuuuuuuuuuuuuuuuuuuuuuuuuu uuuuuuuuuuuuuuuuuuuuuuuuuuuuuuuuuuuuuuuuuuuuuuuuuuuuuuuuuuuuuuuuuuuuuuuuuuuuuuuuuuuuuuuuuuuuuuuuuuuu uuuuuuuuuuuuuuuuuuuuuuuuuuuuuuuuuuuuuuuuuuuuuuuuuuuuuuuuuuuuuuuuuuuuuuuuuuuuuuuuuuuuuuuuuuuuuuuuuuuu uuuuuuuuuuuuuuuuuuuuuuuuuuuuuuuuuuuuuuuuuuuuuuuuuuuuuuuuuuuuuuuuuuuuuuuuuuuuuuuuuuuuuuuuuuuuuuuuuuuu uuuuuuuuuuuuuuuuuuuuuuuuuuuuuuuuuuuuuuuuuuuuuuuuuuuuuuuuuuuuuuuuuuuuuuuuuuuuuuuuuuuuuuuuuuuuuuuuuuuu uuuuuuuuuuuuuuuuuuuuuuuuuuuuuuuuuuuuuuuuuuuuuuuuuuuuuuuuuuuuuuuuuuuuuuuuuuuuuuuuuuuuuuuuuuuuuuuuuuuu uuuuuuuuuuuuuuuuuuuuuuuuuuuuuuuuuuuuuuuuuuuuuuuuuuuuuuuuuuuuuuuuuuuuuuuuuuuuuuuuuuuuuuuuuuuuuuuuuuuu uuuuuuuuuuuuuuuuuuuuuuuuuuuuuuuuuuuuuuuuuuuuuuuuuuuuuuuuuuuuuuuuuuuuuuuuuuuuuuuuuuuuuuuuuuuuuuuuuuuu uuuuuuuuuuuuuuuuuuuuuuuuuuuuuuuuuuuuuuuuuuuuuuuuuuuuuuuuuuuuuuuuuuuuuuuuuuuuuuuuuuuuuuuuuuuuuuuuuuuu uuuuuuuuuuuuuuuuuuuuuuuuuuuuuuuuuuuuuuuuuuuuuuuuuuuuuuuuuuuuuuuuuuuuuuuuuuuuuuuuuuuuuuuuuuuuuuuuuuuu uuuuuuuuuuuuuuuuuuuuuuuuuuuuuuuuuuuuuuuuuuuuuuuuuuuuuuuuuuuuuuuuuuuuuuuuuuuuuuuuuuuuuuuuuuuuuuuuuuuu uuuuuuuuuuuuuuuuuuuuuuuuuuuuuuuuuuuuuuuuuuuuuuuuuuuuuuuuuuuuuuuuuuuuuuuuuuuuuuuuuuuuuuuuuuuuuuuuuuuu uuuuuuuuuuuuuuuuuuuuuuuuuuuuuuuuuuuuuuuuuuuuuuuuuuuuuuuuuuuuuuuuuuuuuuuuuuuuuuuuuuuuuuuuuuuuuuuuuuuu uuuuuuuuuuuuuuuuuuuuuuuuuuuuuuuuuuuuuuuuuuuuuuuuuuuuuuuuuuuuuuuuuuuuuuuuuuuuuuuuuuuuuuuuuuuuuuuuuuuu uuuuuuuuuuuuuuuuuuuuuuuuuuuuuuuuuuuuuuuuuuuuuuuuuuuuuuuuuuuuuuuuuuuuuuuuuuuuuuuuuuuuuuuuuuuuuuuuuuuu uuuuuuuuuuuuuuuuuuuuuuuuuuuuuuuuuuuuuuuuuuuuuuuuuuuuuuuuuuuuuuuuuuuuuuuuuuuuuuuuuuuuuuuuuuuuuuuuuuuu uuuuuuuuuuuuuuuuuuuuuuuuuuuuuuuuuuuuuuuuuuuuuuuuuuuuuuuuuuuuuuuuuuuuuuuuuuuuuuuuuuuuuuuuuuuuuuuuuuuu uuuuuuuuuuuuuuuuuuuuuuuuuuuuuuuuuuuuuuuuuuuuuuuuuuuuuuuuuuuuuuuuuuuuuuuuuuuuuuuuuuuuuuuuuuuuuuuuuuuu uuuuuuuuuuuuuuuuuuuuuuuuuuuuuuuuuuuuuuuuuuuuuuuuuuuuuuuuuuuuuuuuuuuuuuuuuuuuuuuuuuuuuuuuuuuuuuuuuuuu uuuuuuuuuuuuuuuuuuuuuuuuuuuuuuuuuuuuuuuuuuuuuuuuuuuuuuuuuuuuuuuuuuuuuuuuuuuuuuuuuuuuuuuuuuuuuuuuuuuu uuuuuuuuuuuuuuuuuuuuuuuuuuuuuuuuuuuuuuuuuuuuuuuuuuuuuuuuuuuuuuuuuuuuuuuuuuuuuuuuuuuuuuuuuuuuuuuuuuuu uuuuuuuuuuuuuuuuuuuuuuuuuuuuuuuuuuuuuuuuuuuuuuuuuuuuuuuuuuuuuuuuuuuuuuuuuuuuuuuuuuuuuuuuuuuuuuuuuuuu uuuuuwwwwwwwwwwwwwwwwwwwwwwwwwwwwwwwwwwwwwwwwwwwwwwwwwwwwwwwwwwwwwwwwwwwwwwwwwwwwwwwwwwwwwwwwwwwwwww wwwwwwwwwwwwwwwwwwwwwwwwwwwwwwwwwwwwwwwwwwwwwwwwwwwwwwwwwwwwwwwwwwwwwwwwwwwwwwwwwwwwwwwwwwwwwwwwwwww wwwwwwwwwwwwwwwwwwwwwwwwwwwwwwwwwwwwwwwwwwwwwwwwwwwwwwwwwwwwwwwwwwwwwwwwwwwwwwwwwwwwwwwwwwwwwwwwwwww wwwwwwwwwwwwwwwwwwwwwwwwwwwwwwwwwwwwwwwwwwwwwwwwwwwwwwwwwwwwwwwwwwwwwwwwwwwwwwwwwwwwwwwwwwwwwwwwwwww wwwwwwwwwwwwwwwwwwwwwwwwwwwwwwwwwwwwwwwwwwwwwwwwwwwwwwwwwwwwwwwwwwwwwwwwwwwwwwwwwwwwwwwwwwwwwwwwwwww wwwwwwwwwwwwwwwwwwwwwwwwwwwwwwwwwwwwwwwwwwwwwwwwwwwwwwwwwwwwwwwwwwwwwwwwwwwwwwwwwwwwwwwwwwwwwwwwwwww wwwwwwwwwwwwwwwwwwwwwwwwwwwwwwwwwwwwwwwwwwwwwwwwwwwwwwwwwwwwwwwwwwwwwwwwwwwwwwwwwwwwwwwwwwwwwwwwwwww wwwwwwwwwwwwwwwwwwwwwwwwwwwwwwwwwwwwwwwwwwwwwwwwwwwwwwwwwwwwwwwwwwwwwwwwwwwwwwwwwwwwwwwwwwwwwwwwwwww wwwwwwwwwwwwwwwwwwwwwwwwwwwwwwwwwwwwwwwwwwwwwwwwwwwwwwwwwwwwwwwwwwwwwwwwwwwwwwwwwwwwwwwwwwwwwwwwwwww wwwwwwwwwwwwwwwwwwwwwwwwwwwwwwwwwwwwwwwwwwwwwwwwwwwwwwwwwwwwwwwwwwwwwwwwwwwwwwwwwwwwwwwwwwwwwwwwwwww wwwwwwwwwwwwwwwwwwwwwwwwwwwwwwwwwwwwwwwwwwwwwwwwwwwwwwwwwwwwwwwwwwwwwwwwwwwwwwwwwwwwwwwwwwwwwwwwwwww wwwwwwwwwwwwwwwwwwwwwwwwwwwwwwwwwwwwwwwwwwwwwwwwwwwwwwwwwwwwwwwwwwwwwwwwwwwwwwwwwwwwwwwwwwwwwwwwwwww wwwwwwwwwwwwwwwwwwwwwwwwwwwwwwwwwwwwwwwwwwwwwwwwwwwwwwwwwwwwwwwwwwwwwwwwwwwwwwwwwwwwwwwwwwwwwwwwwwww wwwwwwwwwwwwwwwwwwwwwwwwwwwwwwwwwwwwwwwwwwwwwwwwwwwwwwwwwwwwwwwwwwwwwwwwwwwwwwwwwwwwwwwwwwwwwwwwwwww wwwwwwwwwwwwwwwwwwwwwwwwwwwwwwwwwwwwwwwwwwwwwwwwwwwwwwwwwwwwwwwwwwwwwwwwwwwwwwwwwwwwwwwwwwwwwwwwwwww wwwwwwwwwwwwwwwwwwwwwwwwwwwwwwwwwwwwwwwwwwwwwwwwwwwwwwwwwwwwwwwwwwwwwwwwwwwwwwwwwwwwwwwwwwwwwwwwwwww wwwwwwwwwwwwwwwwwwwwwwwwwwwwwwwwwwwwwwwwwwwwwwwwwwwwwwwwwwwwwwwwwwwwwwwwwwwwwwwwwwwwwwwwwwwwwwwwwwww wwwwwwwwwwwwwwwwwwwwwwwwwwwwwwwwwwwwwwwwwwwwwwwwwwwwwwwwwwwwwwwwwwwwwwwwwwwwwwwwwwwwwwwwwwwwwwwwwwww wwwwwwwwwwwwwwwwwwwwwwwwwwwwwwwwwwwwwwwwwwwwwwwwwwwwwwwwwwwwwwwwwwwwwwwwwwwwwwwwwwwwwwwwwwwwwwwwwwww wwwwwwwwwwwwwwwwwwwwwwwwwwwwwwwwwwwwwwwwwwwwwwwwwwwwwwwwwwwwwwwwwwwwwwwwwwwwwwwwwwwwwwwwwwwwwwwwwwww wwwwwwwwwwwwwwwwwwwwwwwwwwwwwwwwwwwwwwwwwwwwwwwwwwwwwwwwwwwwwwwwwwwwwwwwwwwwwwwwwwwwwwwwwwwwwwwwwwww wwwwwwwwwwwwwwwwwwwwwwwwwwwwwwwwwwwwwwwwwwwwwwwwwwwwwwwwwwwwwwwwwwwwwwwwwwwwwwwwwwwwwwwwwwwwwwwwwwww wwwwwwwwwwwwwwwwwwwwwwwwwwwwwwwwwwwwwwwwwwwwwwwwwwwwwwwwwwwwwwwwwwwwwwwwwwwwwwwwwwwwwwwwwwwwwwwwwwww wwwwwwwwwwwwwwwwwwwwwwwwwwwwwwwwwwwwwwwwwwwwwwwwwwwwwwwwwwwwwwwwwwwwwwwwwwwwwwwwwwwwwwwwwwwwwwwwwwww wwwwwwwwwwwwwwwwwwwwwwwwwwwwwwwwwwwwwwwwwwwwwwwwwwwwwwwwwwwwwwwwwwwwwwwwwwwwwwwwwwwwwwwwwwwwwwwwwwww wwwwwwwwwwwwwwwwwwwwwwwwwwwwwwwwwwwwwwwwwwwwwwwwwwwwwwwwwwwwwwwwwwwwwwwwwwwwwwwwwwwwwwwwwwwwwwwwwwww wwwwwwwwwwwwwwwwwwwwwwwwwwwwwwwwwwwwwwwwwwwwwwwwwwwwwwwwwwwwwwwwwwwwwwwwwwwwwwwwwwwwwwwwwwwwwwwwwwww wwwwwwwwwwwwwwwwwwwwwwwwwwwwwwwwwwwwwwwwwwwwwwwwwwwwwwwwwwwwwwwwwwwwwwwwwwwwwwwwwwwwwwwwwwwwwwwwwwww wwwwwwwwwwwwwwwwwwwwwwwwwwwwwwwwwwwwwwwwwwwwwwwwwwwwwwwwwwwwwwwwwwwwwwwwwwwwwwwwwwwwwwwwwwwwwwwwwwww wwwwwwwwwwwwwwwwwwwwwwwwwwwwwwwwwwwwwwwwwwwwwwwwwwwwwwwwwwwwwwwwwwwwwwwwwwwwwwwwwwwwwwwwwwwwwwwwwwww wwwwwwwwwwwwwwwwwwwwwwwwwwwwwwwwwwwwwwwwwwwwwwwwwwwwwwwwwwwwwwwwwwwwwwwwwwwwwwwwwwwwwwwwwwwwwwwwwwww wwwwwwwwwwwwwwwwwwwwwwwwwwwwwwwwwwwwwwwwwwwwwwwwwwwwwwwwwwwwwwwwwwwwwwwwwwwwwwwwwwwwwwwwwwwwwwwwwwww wwwwwwwwwwwwwwwwwwwwwwwwwwwwwwwwwwwwwwwwwwwwwwwwwwwwwwwwwwwwwwwwwwwwwwwwwwwwwwwwwwwwwwwwwwwwwwwwwwww wwwwwwwwwwwwwwwwwwwwwwwwwwwwwwwwwwwwwwwwwwwwwwwwwwwwwwwwwwwwwwwwwwwwwwwwwwwwwwwwwwwwwwwwwwwwwwwwwwww wwwwwwwwwwwwwwwwwwwwwwwwwwwwwwwwwwwwwwwwwwwwwwwwwwwwwwwwwwwwwwwwwwwwwwwwwwwwwwwvuuuuuuuuuuuuuuuuuuuu uuuuuuuuuuuuuuuuuuuuuuuuuuuuuuuuuuuuuuuuuuuuuuuuuuuuuuuuuuuuuuuuuuuuuuuuuuuuuuuuuuuuuuuuuuuuuuuuuuuu uuuuuuuuuuuuuuuuuuuuuuuuuuuuuuuuuuuuuuuuuuuuuuuuuuuuuuuuuuuuuuuuuuuuuuuuuuuuuuuuuuuuuuuuuuuuuuuuuuuu uuuuuuuuuuuuuuuuuuuuuuuuuuuuuuuuuuuuuuuuuuuuuuuuuuuuuuuuuuuuuuuuuuuuuuuuuuuuuuuuuuuuuuuuuuuuuuuuuuuu uuuuuuuuuuuuuuuuuuuuuuuuuuuuuuuuuuuuuuuuuuuuuuuuuuuuuuuuuuuuuuuuuuuuuuuuuuuuuuuuuuuuuuuuuuuuuuuuuuuu uuuuuuuuuuuuuuuuuuuuuuuuuuuuuuuuuuuuuuuuuuuuuuuuuuuuuuuuuuuuuuuuuuuuuuuuuuuuuuuuuuuuuuuuuuuuuuuuuuuu uuuuuuuuuuuuuuuuuuuuuuuuuuuuuuuuuuuuuuuuuuuuuuuuuuuuuuuuuuuuuuuuuuuuuuuuuuuuuuuuuuuuuuuuuuuuuuuuuuuu uuuuuuuuuuuuuuuuuuuuuuuuuuuuuuuuuuuuuuuuuuuuuuuuuuuuuuuuuuuuuuuuuuuuuuuuuuuuuuuuuuuuuuuuuuuuuuuuuuuu uuuuuuuuuuuuuuuuuuuuuuuuuuuuuuuuuuuuuuuuuuuuuuuuuuuuuuuuuuuuuuuuuuuuuuuuuuuuuuuuuuuuuuuuuuuuuuuuuuuu uuuuuuuuuuuuuuuuuuuuuuuuuuuuuuuuuuuuuuuuuuuuuuuuuuuuuuuuuuuuuuuuuuuuuuuuuuuuuuuuuuuuuuuuuuuuuuuuuuuu uuuuuuuuuuuuuuuuuuuuuuuuuuuuuuuuuuuuuuuuuuuuuuuuuuuuuuuuuuuuuuuuuuuuuuuuuuuuuuuuuuuuuuuuuuuuuuuuuuuu uuuuuuuuuuuuuuuuuuuuuuuuuuuuuuuuuuuuuuuuuuuuuuuuuuuuuuuuuuuuuuuuuuuuuuuuuuuuuuuuuuuuuuuuuuuuuuuuuuuu uuuuuuuuuuuuuuuuuuuuuuuuuuuuuuuuuuuuuuuuuuuuuuuuuuuuuuuuuuuuuuuuuuuuuuuuuuuuuuuuuuuuuuuuuuuuuuuuuuuu uuuuuuuuuuuuuuuuuuuuuuuuuuuuuuuuuuuuuuuuuuuuuuuuuuuuuuuuuuuuuuuuuuuuuuuuuuuuuuuuuuuuuuuuuuuuuuuuuuuu uuuuuuuuuuuuuuuuuuuuuuuuuuuuuuuuuuuuuuuuuuuuuuuuuuuuuuuuuuuuuuuuuuuuuuuuuuuuuuuuuuuuuuuuuuuuuuuuuuuu uuuuuuuuuuuuuuuuuuuuuuuuuuuuuuuuuuuuuuuuuuuuuuuuuuuuuuuuuuuuuuuuuuuuuuuuuuuuuuuuuuuuuuuuuuuuuuuuuuuu uuuuuuuuuuuuuuuuuuuuuuuuuuuuuuuuuuuuuuuuuuuuuuuuuuuuuuuuuuuuuuuuuuuuuuuuuuuuuuuuuuuuuuuuuuuuuuuuuuuu uuuuuuuuuuuuuuuuuuuuuuuuuuuuuuuuuuuuuuuuuuuuuuuuuuuuuuuuuuuuuuuuuuuuuuuuuuuuuuuuuuuuuuuuuuuuuuuuuuuu uuuuuuuuuuuuuuuuuuuuuuuuuuuuuuuuuuuuuuuuuuuuuuuuuuuuuuuuuuuuuuuuuuuuuuuuuuuuuuuuuuuuuuuuuuuuuuuuuuuu uuuuuuuuuuuuuuuuuuuuuuuuuuuuuuuuuuuuuuuuuuuuuuuuuuuuuuuuuuuuuuuuuuuuuuuuuuuuuuuuuuuuuuuuuuuuuuuuuuuu uuuuuuuuuuuuuuuuuuuuuuuuuuuuuuuuuuuuuuuuuuuuuuuuuuuuuuuuuuuuuuuuuuuuuuuuuuuuuuuuuuuuuuuuuuuuuuuuuuuu uuuuuuuuuuuuuuuuuuuuuuuuuuuuuuuuuuuuuuuuuuuuuuuuuuuuuuuuuuuuuuuuuuuuuuuuuuuuuuuuuuuuuuuuuuuuuuuuuuuu uuuuuuuuuuuuuuuuuuuuuuuuuuuuuuuuuuuuuuuuuuuuuuuuuuuuuuuuuuuuuuuuuuuuuuuuuuuuuuuuuuuuuuuuuuuuuuuuuuuu uuuuuuuuuuuuuuuuuuuuuuuuuuuuuuuuuuuuuuuuuuuuuuuuuuuuuuuuuuuuuuuuuuuuuuuuuuuuuuuuuuuuuuuuuuuuuuuuuuuu uuuuuuuuuuuuuuuuuuuuuuuuuuuuuuuuuuuuuuuuuuuuuuuuuuuuuuuuuuuuuuuuuuuuuuuuuuuuuuuuuuuuuuuuuuuuuuuuuuuu uuuuuuuuuuuuuuuuuuuuuuuuuuuuuuuuuuuuuuuuuuuuuuuuuuuuuuuuuuuuuuuuuuuuuuuuuuuuuuuuuuuuuuuuuuuuuuuuuuuu uuuuuuuuuuuuuuuuuuuuuuuuuuuuuuuuuuuuuuuuuuuuuuuuuuuuuuuuuuuuuuuuuuuuuuuuuuuuuuuuuuuuuuuuuuuuuuuuuuuu uuuuuuuuuuuuuuuuuuuuuuuuuuuuuuuuuuuuuuuuuuuuuuuuuuuuuuuuuuuuuuuuuuuuuuuuuuuuuuuuuuuuuuuuuuuuuuuuuuuu uuuuuuuuuuuuuuuuuuuuuuuuuuuuuuuuuuuuuuuuuuuuuuuuuuuuuuuuuuuuuuuuuuuuuuuuuuuuuuuuuuuuuuuuuuuuuuuuuuuu uuuuuuuuuuuuuuuuuuuuuuuuuuuuuuuuuuuuuuuuuuuuuuuuuuuuuuuuuuuuuuuuuuuuuuuuuuuuuuuuuuuuuuuuuuuuuuuuuuuu uuuuuuuuuuuuuuuuuuuuuuuuuuuuuuuuuuuuuuuuuuuuuuuuuuuuuuuuuuuuuuuuuuuuuuuuuuuuuuuuuuuuuuuuuuuuuuuuuuuu uuuuuuuuuuuuuuuuuuuuuuuuuuuuuuuuuuuuuuuuuuuuuuuuuuuuuuuuuuuuuuuuuuuuuuuuuuuuuuuuuuuuuuuuuuuuuuuuuuuu uuuuuuuuuuuuuuuuuuuuuuuuuuuuuuuuuuuuuuuuuuuuuuuuuuuuuuuuuuuuuuuuuuuuuuuuuuuuuuuuuuuuuuuuuuuuuuuuuuuu uuuuuuuuuuuuuuuuuuuuuuuuuuuuuuuuuuuuuuuuuuuuuuuuuuuuuuuuuuuuuuuuuuuuuuuuuuuuuuuuuuuuuuuuuuuuuuuuuuuu uuuuuuuuuuuuuuuuuuuuuuuuuuuuuuuuuuuuuuuuuuuuuuuuuuuuuuuuuuuuuuuuuuuuuuuuuuuuuuuuuuuuuuuuuuuuuuuuuuuu uuuuuuuuuuuuuuuuuuuuuuuuuuuuuuuuuuuuuuuuuuuuuuuuuuuuuuuuuuuuuuuuuuuuuuuuuuuuuuuuuuuuuuuuuuuuuuuuuuuu uuuuuuuuuuuuuuuuuuuuuuuuuuuuuuuuuuuuuuuuuuuuuuuuuuuuuuuuuuuuuuuuuuuuuuuuuuuuuuuuuuuuuuuuuuuuuuuuuuuu uuuuuuuuuuuuuuuuuuuuuuuuuuuuuuuuuuuuuuuuuuuuuuuuuuuuuuuuuuuuuuuuuuuuuuuuuuuuuuuuuuuuuuuuuuuuuuuuuuuu uuuuuuuuuuuuuuuuuuuuuuuuuuuuuuuuuuuuuuuuuuuuuuuuuuuuuuuuuuuuuuuuuuuuuuuuuuuuuuuuuuuuuuuuuuuuuuuuuuuu uuuuuuuuuuuuuuuuuuuuuuuuuuuuuuuuuuuuuuuuuuuuuuuuuuuuuuuuuuuuuuuuuuuuuuuuuuuuuuuuuuuuuuuuuuuuuuuuuuuu uuuuuuuuuuuuuuuuuuuuuuuuuuuuuuuuuuuuuuuuuuuuuuuuuuuuuuuuuuuuuuuuuuuuuuuuuuuuuuuuuuuuuuuuuuuuuuuuuuuu uuuuuuuuuuuuuuuuuuuuuuuuuuuuuuuuuuuuuuuuuuuuuuuuuuuuuuuuuuuuuuuuuuuuuuuuuuuuuuuuuuuuuuuuuuuuuuuuuuuu uuuuuuuuuuuuuuuuuuuuuuuuuuuuuuuuuuuuuuuuuuuuuuuuuuuuuuuuuuuuuuuuuuuuuuuuuuuuuuuuuuuuuuuuuuuuuuuuuuuu uuuuuuuuuuuuuuuuuuuuuuuuuuuuuuuuuuuuuuuuuuuuuuuuuuuuuuuuuuuuuuuuuuuuuuuuuuuuuuuuuuuuuuuuuuuuuuuuuuuu uuuuuuuuuuuuuuuuuuuuuuuuuuuuuuuuuuuuuuuuuuuuuuuuuuuuuuuuuuuuuuuuuuuuuuuuuuuuuuuuuuuuuuuuuuuuuuuuuuuu uuuuuuuuuuuuuuuuuuuuuuuuuuuuuuuuuuuuuuuuuuuuuuuuuuuuuuuuuuuuuuuuuuuuuuuuuuuuuuuuuuuuuuuuuuuuuuuuuuuu uuuuuuuuuuuuuuuuuuuuuuuuuuuuuuuuuuuuuuuuuuuuuuuuuuuuuuuuuuuuuuuuuuuuuuuuuuuuuuuuuuuuuuuuuuuuuuuuuuuu uuuuuuuuuuuuuuuuuuuuuuuuuuuuuuuuuuuuuuuuuuuuuuuuuuuuuuuuuuuuuuuuuuuuuuuuuuuuuuuuuuuuuuuuuuuuuuuuuuuu uuuuuuuuuuuuuuuuuuuuuuuuuuuuuuuuuuuuuuuuuuuuuuuuuuuuuuuuuuuuuuuuuuuuuuuuuuuuuuuuuuuuuuuuuuuuuuuuuuuu uuuuuuuuuuuuuuuuuuuuuuuuuuuuuuuuuuuuuuuuuuuuuuuuuuuuuuuuuuuuuuuuuuuuuuuuuuuuuuuuuuuuuuuuuuuuuuuuuuuu uuuuuuuuuuuuuuuuuuuuuuuuuuuuuuuuuuuuuuuuuuuuuuuuuuuuuuuuuuuuuuuuuuuuuuuuuuuuuuuuuuuuuuuuuuuuuuuuuuuu uuuuuuuuuuuuuuuuuuuuuuuuuuuuuuuuuuuuuuuuuuuuuuuuuuuuuuuuuuuuuuuuuuuuuuuuuuuuuuuuuuuuuuuuuuuuuuuuuuuu uuuuuuuuuuuuuuuuuuuuuuuuuuuuuuuuuuuuuuuuuuuuuuuuuuuuuuuuuuuuuuuuuuuuuuuuuuuuuuuuuuuuuuuuuuuuuuuuuuuu uuuuuuuuuuuuuuuuuuuuuuuuuuuuuuuuuuuuuuuuuuuuuuuuuuuuuuuuuuuuuuuuuuuuuuuuuuuuuuuuuuuuuuuuuuuuuuuuuuuu uuuuuuuuuuuuuuuuuuuuuuuuuuuuuuuuuuuuuuuuuuuuuuuuuuuuuuuuuuuuuuuuuuuuuuuuuuuuuuuuuuuuuuuuuuuuuuuuuuuu uuuuuuuuuuuuuuuuuuuuuuuuuuuuuuuuuuuuuuuuuuuuuuuuuuuuuuuuuuuuuuuuuuuuuuuuuuuuuuuuuuuuuuuuuuuuuuuuuuuu uuuuuuuuuuuuuuuuuuuuuuuuuuuuuuuuuuuuuuuuuuuuuuuuuuuuuuuuuuuuuuuuuuuuuuuuuuuuuuuuuuuuuuuuuuuuuuuuuuuu uuuuuuuuuuuuuuuuuuuuuuuuuuuuuuuuuuuuuuuuuuuuuuuuuuuuuuuuuuuuuuuuuuuuuuuuuuuuuuuuuuuuuuuuuuuuuuuuuuuu uuuuuuuuuuuuuuuuuuuuuuuuuuuuuuuuuuuuuuuuuuuuuuuuuuuuuuuuuuuuuuuuuuuuuuuuuuuuuuuuuuuuuuuuuuuuuuuuuuuu uuuuuuuuuuuuuuuuuuuuuuuuuuuuuuuuuuuuuuuuuuuuuuuuuuuuuuuuuuuuuuuuuuuuuuuuuuuuuuuuuuuuuuuuuuuuuuuuuuuu uuuuuuuuuuuuuuuuuuuuuuuuuuuuuuuuuuuuuuuuuuuuuuuuuuuuuuuuuuuuuuuuuuuuuuuuuuuuuuuuuuuuuuuuuuuuuuuuuuuu uuuuuuuuuuuuuuuuuuuuuuuuuuuuuuuuuuuuuuuuuuuuuuuuuuuuuuuuuuuuuuuuuuuuuuuuuuuuuuuuuuuuuuuuuuuuuuuuuuuu uuuuuuuuuuuuuuuuuuuuuuuuuuuuuuuuuuuuuuuuuuuuuuuuuuuuuuuuuuuuuuuuuuuuuuuuuuuuuuuuuuuuuuuuuuuuuuuuuuuu uuuuuuuuuuuuuuuuuuuuuuuuuuuuuuuuuuuuuuuuuuuuuuuuuuuuuuuuuuuuuuuuuuuuuuuuuuuuuuuuuuuuuuuuuuuuuuuuuuuu uuuuuuuuuuuuuuuuuuuuuuuuuuuuuuuuuuuuuuuuuuuuuuuuuuuuuuuuuuuuuuuuuuuuuuuuuuuuuuuuuuuuuuuuuuuuuuuuuuuu uuuuuuuuuuuuuuuuuuuuuuuuuuuuuuuuuuuuuuuuuuuuuuuuuuuuuuuuuuuuuuuuuuuuuuuuuuuuuuuuuuuuuuuuuuuuuuuuuuuu uuuuuuuuuuuuuuuuuuuuuuuuuuuuuuuuuuuuuuuuuuuuuuuuuuuuuuuuuuuuuuuuuuuuuuuuuuuuuuuuuuuuuuuuuuuuuuuuuuuu uuuuuuuuuuuuuuuuuuuuuuuuuuuuuuuuuuuuuuuuuuuuuuuuuuuuuuuuuuuuuuuuuuuuuuuuuuuuuuuuuuuuuuuuuuuuuuuuuuuu uuuuuuuuuuuuuuuuuuuuuuuuuuuuuuuuuuuuuuuuuuuuuuuuuuuuuuuuuuuuuuuuuuuuuuuuuuuuuuuuuuuuuuuuuuuuuuuuuuuu uuuuuuuuuuuuuuuuuuuuuuuuuuuuuuuuuuuuuuuuuuuuuuuuuuuuuuuuuuuuuuuuuuuuuuuuuuuuuuuuuuuuuuuuuuuuuuuuuuuu uuuuuuuuuuuuuuuuuuuuuuuuuuuuuuuuuuuuuuuuuuuuuuuuuuuuuuuuuuuuuuuuuuuuuuuuuuuuuuuuuuuuuuuuuuuuuuuuuuuu uuuuuuuuuuuuuuuuuuuuuuuuuuuuuuuuuuuuuuuuuuuuuuuuuuuuuuuuuuuuuuuuuuuuuuuuuuuuuuuuuuuuuuuuuuuuuuuuuuuu uuuuuuuuuuuuuuuuuuuuuuuuuuuuuuuuuuuuuuuuuuuuuuuuuuuuuuuuuuuuuuuuuuuuuuuuuuuuuuuuuuuuuuuuuuuuuuuuuuuu uuuuuuuuuuuuuuuuuuuuuuuuuuuuuuuuuuuuuuuuuuuuuuuuuuuuuuuuuuuuuuuuuuuuuuuuuuuuuuuuuuuuuuuuuuuuuuuuuuuu uuuuuuuuuuuuuuuuuuuuuuuuuuuuuuuuuuuuuuuuuuuuuuuuuuuuuuuuuuuuuuuuuuuuuuuuuuuuuuuuuuuuuuuuuuuuuuuuuuuu uuuuuuuuuuuuuuuuuuuuuuuuuuuuuuuuuuuuuuuuuuuuuuuuuuuuuuuuuuuuuuuuuuuuuuuuuuuuuuuuuuuuuuuuuuuuuuuuuuuu uuuuuuuuuuuuuuuuuuuuuuuuuuuuuuuuuuuuuuuuuuuuuuuuuuuuuuuuuuuuuuuuuuuuuuuuuuuuuuuuuuuuuuuuuuuuuuuuuuuu uuuuuuuuuuuuuuuuuuuuuuuuuuuuuuuuuuuuuuuuuuuuuuuuuuuuuuuuuuuuuuuuuuuuuuuuuuuuuuuuuuuuuuuuuuuuuuuuuuuu uuuuuuuuuuuuuuuuuuuuuuuuuuuuuuuuuuuuuuuuuuuuuuuuuuuuuuuuuuuuuuuuuuuuuuuuuuuuuuuuuuuuuuuuuuuuuuuuuuuu uuuuuuuuuuuuuuuuuuuuuuuuuuuuuuuuuuuuuuuuuuuuuuuuuuuuuuuuuuuuuuuuuuuuuuuuuuuuuuuuuuuuuuuuuuuuuuuuuuuu uuuuuuuuuuuuuuuuuuuuuuuuuuuuuuuuuuuuuuuuuuuuuuuuuuuuuuuuuuuuuuuuuuuuuuuuuuuuuuuuuuuuuuuuuuuuuuuuuuuu uuuuuuuuuuuuuuuuuuuuuuuuuuuuuuuuuuuuuuuuuuuuuuuuuuuuuuuuuuuuuuuuuuuuuuuuuuuuuuuuuuuuuuuuuuuuuuuuuuuu uuuuuuuuuuuuuuuuuuuuuuuuuuuuuuuuuuuuuuuuuuuuuuuuuuuuuuuuuuuuuuuuuuuuuuuuuuuuuuuuuuuuuuuuuuuuuuuuuuuu uuuuuuuuuuuuuuuuuuuuuuuuuuuuuuuuuuuuuuuuuuuuuuuuuuuuuuuuuuuuuuuuuuuuuuuuuuuuuuuuuuuuuuuuuuuuuuuuuuuu uuuuuuuuuuuuuuuuuuuuuuuuuuuuuuuuuuuuuuuuuuuuuuuuuuuuuuuuuuuuuuuuuuuuuuuuuuuuuuuuuuuuuuuuuuuuuuuuuuuu uuuuuuuuuuuuuuuuuuuuuuuuuuuuuuuuuuuuuuuuuuuuuuuuuuuuuuuuuuuuuuuuuuuuuuuuuuuuuuuuuuuuuuuuuuuuuuuuuuuu uuuuuuuuuuuuuuuuuuuuuuuuuuuuuuuuuuuuuuuuuuuuuuuuuuuuuuuuuuuuuuuuuuuuuuuuuuuuuuuuuuuuuuuuuuuuuuuuuuuu uuuuuuuuuuuuuuuuuuuuuuuuuuuuuuuuuuuuuuuuuuuuuuuuuuuuuuuuuuuuuuuuuuuuuuuuuuuuuuuuuuuuuuuuuuuuuuuuuuuu uuuuuuuuuuuuuuuuuuuuuuuuuuuuuuuuuuuuuuuuuuuuuuuuuuuuuuuuuuuuuuuuuuuuuuuuuuuuuuuuuuuuuuuuuuuuuuuuuuuu uuuuuuuuuuuuuuuuuuuuuuuuuuuuuuuuuuuuuuuuuuuuuuuuuuuuuuuuuuuuuuuuuuuuuuuuuuuuuuuuuuuuuuuuuuuuuuuuuuuu uuuuuuuuuuuuuuuuuuuuuuuuuuuuuuuuuuuuuuuuuuuuuuuuuuuuuuuuuuuuuuuuuuuuuuuuuuuuuuuuuuuuuuuuuuuuuuuuuuuu uuuuuuuuuuuuuuuuuuuuuuuuuuuuuuuuuuuuuuuuuuuuuuuuuuuuuuuuuuuuuuuuuuuuuuuuuuuuuuuuuuuuuuuuuuuuuuuuuuuu uuuuuuuuuuuuuuuuuuuuuuuuuuuuuuuuuuuuuuuuuuuuuuuuuuuuuuuuuuuuuuuuuuuuuuuuuuuuuuuuuuuuuuuuuuuuuuuuuuuu uuuuuuuuuuuuuuuuuuuuuuuuuuuuuuuuuuuuuuuuuuuuuuuuuuuuuuuuuuuuuuuuuuuuuuuuuuuuuuuuuuuuuuuuuuuuuuuuuuuu uuuuuuuuuuuuuuuuuuuuuuuuuuuuuuuuuuuuuuuuuuuuuuuuuuuuuuuuuuuuuuuuuuuuuuuuuuuuuuuuuuuuuuuuuuuuuuuuuuuu uuuuuuuuuuuuuuuuuuuuuuuuuuuuuuuuuuuuuuuuuuuuuuuuuuuuuuuuuuuuuuuuuuuuuuuuuuuuuuuuuuuuuuuuuuuuuuuuuuuu uuuuuuuuuuuuuuuuuuuuuuuuuuuuuuuuuuuuuuuuuuuuuuuuuuuuuuuuuuuuuuuuuuuuuuuuuuuuuuuuuuuuuuuuuuuuuuuuuuuu uuuuuuuuuuuuuuuuuuuuuuuuuuuuuuuuuuuuuuuuuuuuuuuuuuuuuuuuuuuuuuuuuuuuuuuuuuuuuuuuuuuuuuuuuuuuuuuuuuuu uuuuuuuuuuuuuuuuuuuuuuuuuuuuuuuuuuuuuuuuuuuuuuuuuuuuuuuuuuuuuuuuuuuuuuuuuuuuuuuuuuuuuuuuuuuuuuuuuuuu uuuuuuuuuuuuuuuuuuuuuuuuuuuuuuuuuuuuuuuuuuuuuuuuuuuuuuuuuuuuuuuuuuuuuuuuuuuuuuuuuuuuuuuuuuuuuuuuuuuu uuuuuuuuuuuuuuuuuuuuuuuuuuuuuuuuuuuuuuuuuuuuuuuuuuuuuuuuuuuuuuuuuuuuuuuuuuuuuuuuuuuuuuuuuuuuuuuuuuuu uuuuuuuuuuuuuuuuuuuuuuuuuuuuuuuuuuuuuuuuuuuuuuuuuuuuuuuuuuuuuuuuuuuuuuuuuuuuuuuuuuuuuuuuuuuuuuuuuuuu uuuuuuuuuuuuuuuuuuuuuuuuuuuuuuuuuuuuuuuuuuuuuuuuuuuuuuuuuuuuuuuuuuuuuuuuuuuuuuuuuuuuuuuuuuuuuuuuuuuu uuuuuuuuuuuuuuuuuuuuuuuuuuuuuuuuuuuuuuuuuuuuuuuuuuuuuuuuuuuuuuuuuuuuuuuuuuuuuuuuuuuuuuuuuuuuuuuuuuuu uuuuuuuuuuuuuuuuuuuuuuuuuuuuuuuuuuuuuuuuuuuuuuuuuuuuuuuuuuuuuuuuuuuuuuuuuuuuuuuuuuuuuuuuuuuuuuuuuuuu uuuuuuuuuuuuuuuuuuuuuuuuuuuuuuuuuuuuuuuuuuuuuuuuuuuuuuuuuuuuuuuuuuuuuuuuuuuuuuuuuuuuuuuuuuuuuuuuuuuu uuuuuuuuuuuuuuuuuuuuuuuuuuuuuuuuuuuuuuuuuuuuuuuuuuuuuuuuuuuuuuuuuuuuuuuuuuuuuuuuuuuuuuuuuuuuuuuuuuuu uuuuuuuuuuuuuuuuuuuuuuuuuuuuuuuuuuuuuuuuuuuuuuuuuuuuuuuuuuuuuuuuuuuuuuuuuuuuuuuuuuuuuuuuuuuuuuuuuuuu uuuuuuuuuuuuuuuuuuuuuuuuuuuuuuuuuuuuuuuuuuuuuuuuuuuuuuuuuuuuuuuuuuuuuuuuuuuuuuuuuuuuuuuuuuuuuuuuuuuu uuuuuuuuuuuuuuuuuuuuuuuuuuuuuuuuuuuuuuuuuuuuuuuuuuuuuuuuuuuuuuuuuuuuuuuuuuuuuuuuuuuuuuuuuuuuuuuuuuuu uuuuuuuuuuuuuuuuuuuuuuuuuuuuuuuuuuuuuuuuuuuuuuuuuuuuuuuuuuuuuuuuuuuuuuuuuuuuuuuuuuuuuuuuuuuuuuuuuuuu uuuuuuuuuuuuuuuuuuuuuuuuuuuuuuuuuuuuuuuuuuuuuuuuuuuuuuuuuuuuuuuuuuuuuuuuuuuuuuuuuuuuuuuuuuuuuuuuuuuu uuuuuuuuuuuuuuuuuuuuuuuuuuuuuuuuuuuuuuuuuuuuuuuuuuuuuuuuuuuuuuuuuuuuuuuuuuuuuuuuuuuuuuuuuuuuuuuuuuuu uuuuuuuuuuuuuuuuuuuuuuuuuuuuuuuuuuuuuuuuuuuuuuuuuuuuuuuuuuuuuuuuuuuuuuuuuuuuuuuuuuuuuuuuuuuuuuuuuuuu uuuuuuuuuuuuuuuuuuuuuuuuuuuuuuuuuuuuuuuuuuuuuuuuuuuuuuuuuuuuuuuuuuuuuuuuuuuuuuuuuuuuuuuuuuuuuuuuuuuu uuuuuuuuuuuuuuuuuuuuuuuuuuuuuuuuuuuuuuuuuuuuuuuuuuuuuuuuuuuuuuuuuuuuuuuuuuuuuuuuuuuuuuuuuuuuuuuuuuuu uuuuuuuuuuuuuuuuuuuuuuuuuuuuuuuuuuuuuuuuuuuuuuuuuuuuuuuuuuuuuuuuuuuuuuuuuuuuuuuuuuuuuuuuuuuuuuuuuuuu uuuuuuuuuuuuuuuuuuuuuuuuuuuuuuuuuuuuuuuuuuuuuuuuuuuuuuuuuuuuuuuuuuuuuuuuuuuuuuuuuuuuuuuuuuuuuuuuuuuu uuuuuuuuuuuuuuuuuuuuuuuuuuuuuuuuuuuuuuuuuuuuuuuuuuuuuuuuuuuuuuuuuuuuuuuuuuuuuuuuuuuuuuuuuuuuuuuuuuuu uuuuuuuuuuuuuuuuuuuuuuuuuuuuuuuuuuuuuuuuuuuuuuuuuuuuuuuuuuuuuuuuuuuuuuuuuuuuuuuuuuuuuuuuuuuuuuuuuuuu uuuuuuuuuuuuuuuuuuuuuuuuuuuuuuuuuuuuuuuuuuuuuuuuuuuuuuuuuuuuuuuuuuuuuuuuuuuuuuuuuuuuuuuuuuuuuuuuuuuu uuuuuuuuuuuuuuuuuuuuuuuuuuuuuuuuuuuuuuuuuuuuuuuuuuuuuuuuuuuuuuuuuuuuuuuuuuuuuuuuuuuuuuuuuuuuuuuuuuuu uuuuuuuuuuuuuuuuuuuuuuuuuuuuuuuuuuuuuuuuuuuuuuuuuuuuuuuuuuuuuuuuuuuuuuuuuuuuuuuuuuuuuuuuuuuuuuuuuuuu uuuuuuuuuuuuuuuuuuuuuuuuuuuuuuuuuuuuuuuuuuuuuuuuuuuuuuuuuuuuuuuuuuuuuuuuuuuuuuuuuuuuuuuuuuuuuuuuuuuu uuuuuuuuuuuuuuuuuuuuuuuuuuuuuuuuuuuuuuuuuuuuuuuuuuuuuuuuuuuuuuuuuuuuuuuuuuuuuuuuuuuuuuuuuuuuuuuuuuuu uuuuuuuuuuuuuuuuuuuuuuuuuuuuuuuuuuuuuuuuuuuuuuuuuuuuuuuuuuuuuuuuuuuuuuuuuuuuuuuuuuuuuuuuuuuuuuuuuuuu uuuuuuuuuuuuuuuuuuuuuuuuuuuuuuuuuuuuuuuuuuuuuuuuuuuuuuuuuuuuuuuuuuuuuuuuuuuuuuuuuuuuuuuuuuuuuuuuuuuu uuuuuuuuuuuuuuuuuuuuuuuuuuuuuuuuuuuuuuuuuuuuuuuuuuuuuuuuuuuuuuuuuuuuuuuuuuuuuuuuuuuuuuuuuuuuuuuuuuuu uuuuuuuuuuuuuuuuuuuuuuuuuuuuuuuuuuuuuuuuuuuuuuuuuuuuuuuuuuuuuuuuuuuuuuuuuuuuuuuuuuuuuuuuuuuuuuuuuuuu uuuuuuuuuuuuuuuuuuuuuuuuuuuuuuuuuuuuuuuuuuuuuuuuuuuuuuuuuuuuuuuuuuuuuuuuuuuuuuuuuuuuuuuuuuuuuuuuuuuu uuuuuuuuuuuuuuuuuuuuuuuuuuuuuuuuuuuuuuuuuuuuuuuuuuuuuuuuuuuuuuuuuuuuuuuuuuuuuuuuuuuuuuuuuuuuuuuuuuuu uuuuuuuuuuuuuuuuuuuuuuuuuuuuuuuuuuuuuuuuuuuuuuuuuuuuuuuuuuuuuuuuuuuuuuuuuuuuuuuuuuuuuuuuuuuuuuuuuuuu uuuuuuuuuuuuuuuuuuuuuuuuuuuuuuuuuuuuuuuuuuuuuuuuuuuuuuuuuuuuuuuuuuuuuuuuuuuuuuuuuuuuuuuuuuuuuuuuuuuu uuuuuuuuuuuuuuuuuuuuuuuuuuuuuuuuuuuuuuuuuuuuuuuuuuuuuuuuuuuuuuuuuuuuuuuuuuuuuuuuuuuuuuuuuuuuuuuuuuuu uuuuuuuuuuuuuuuuuuuuuuuuuuuuuuuuuuuuuuuuuuuuuuuuuuuuuuuuuuuuuuuuuuuuuuuuuuuuuuuuuuuuuuuuuuuuuuuuuuuu uuuuuuuuuuuuuuuuuuuuuuuuuuuuuuuuuuuuuuuuuuuuuuuuuuuuuuuuuuuuuuuuuuuuuuuuuuuuuuuuuuuuuuuuuuuuuuuuuuuu uuuuuuuuuuuuuuuuuuuuuuuuuuuuuuuuuuuuuuuuuuuuuuuuuuuuuuuuuuuuuuuuuuuuuuuuuuuuuuuuuuuuuuuuuuuuuuuuuuuu uuuuuuuuuuuuuuuuuuuuuuuuuuuuuuuuuuuuuuuuuuuuuuuuuuuuuuuuuuuuuuuuuuuuuuuuuuuuuuuuuuuuuuuuuuuuuuuuuuuu uuuuuuuuuuuuuuuuuuuuuuuuuuuuuuuuuuuuuuuuuuuuuuuuuuuuuuuuuuuuuuuuuuuuuuuuuuuuuuuuuuuuuuuuuuuuuuuuuuuu uuuuuuuuuuuuuuuuuuuuuuuuuuuuuuuuuuuuuuuuuuuuuuuuuuuuuuuuuuuuuuuuuuuuuuuuuuuuuuuuuuuuuuuuuuuuuuuuuuuu uuuuuuuuuuuuuuuuuuuuuuuuuuuuuuuuuuuuuuuuuuuuuuuuuuuuuuuuuuuuuuuuuuuuuuuuuuuuuuuuuuuuuuuuuuuuuuuuuuuu uuuuuuuuuuuuuuuuuuuuuuuuuuuuuuuuuuuuuuuuuuuuuuuuuuuuuuuuuuuuuuuuuuuuuuuuuuuuuuuuuuuuuuuuuuuuuuuuuuuu uuuuuuuuuuuuuuuuuuuuuuuuuuuuuuuuuuuuuuuuuuuuuuuuuuuuuuuuuuuuuuuuuuuuuuuuuuuuuuuuuuuuuuuuuuuuuuuuuuuu uuuuuuuuuuuuuuuuuuuuuuuuuuuuuuuuuuuuuuuuuuuuuuuuuuuuuuuuuuuuuuuuuuuuuuuuuuuuuuuuuuuuuuuuuuuuuuuuuuuu uuuuuuuuuuuuuuuuuuuuuuuuuuuuuuuuuuuuuuuuuuuuuuuuuuuuuuuuuuuuuuuuuuuuuuuuuuuuuuuuuuuuuuuuuuuuuuuuuuuu uuuuuuuuuuuuuuuuuuuuuuuuuuuuuuuuuuuuuuuuuuuuuuuuuuuuuuuuuuuuuuuuuuuuuuuuuuuuuuuuuuuuuuuuuuuuuuuuuuuu uuuuuuuuuuuuuuuuuuuuuuuuuuuuuuuuuuuuuuuuuuuuuuuuuuuuuuuuuuuuuuuuuuuuuuuuuuuuuuuuuuuuuuuuuuuuuuuuuuuu uuuuuuuuuuuuuuuuuuuuuuuuuuuuuuuuuuuuuuuuuuuuuuuuuuuuuuuuuuuuuuuuuuuuuuuuuuuuuuuuuuuuuuuuuuuuuuuuuuuu uuuuuuuuuuuuuuuuuuuuuuuuuuuuuuuuuuuuuuuuuuuuuuuuuuuuuuuuuuuuuuuuuuuuuuuuuuuuuuuuuuuuuuuuuuuuuuuuuuuu uuuuuuuuuuuup Reason For Visit: DIABETES HAND CELLULITIS BIPOLAR Physical Exam Vital Signs: Temp Pulse Resp BP Pulse Ox 98.3 F 64 16 126/55 H 96 09/30/18 16:00 09/30/18 16:00 09/30/18 16:00 09/30/18 16:00 09/30/18 16:00 Intake & Output 09/29/18 09/30/18 10/01/18 06:59 06:59 06:59 Intake Total 555 1245 850 Balance 555 1245 850 Weight 65.5 kg 65.5 kg 65.5 kg General appearance: PRESENT: no acute distress, well-developed, well-nourished Head exam: PRESENT: atraumatic, normocephalic Eye exam: PRESENT: conjunctiva pink, EOMI, PERRLA. ABSENT: scleral icterus Ear exam: PRESENT: normal external ear exam Mouth exam: PRESENT: moist, tongue midline Teeth exam: PRESENT: poor dentation Neck exam: ABSENT: carotid bruit, JVD, lymphadenopathy, thyromegaly Respiratory exam: PRESENT: clear to auscultation tania. ABSENT: rales, rhonchi, wheezes Cardiovascular exam: PRESENT: RRR. ABSENT: diastolic murmur, rubs, systolic murmur Pulses: PRESENT: normal dorsalis pedis pul Vascular exam: PRESENT: normal capillary refill GI/Abdominal exam: PRESENT: normal bowel sounds, soft. ABSENT: distended, guarding, mass, organolmegaly, rebound, tenderness Rectal exam: PRESENT: deferred Extremities exam: PRESENT: full ROM. ABSENT: calf tenderness, clubbing, pedal edema Back of Hands Image: 1 - wound 2 - wound Neurological exam: PRESENT: alert, awake, oriented to person, oriented to place, oriented to time, oriented to situation Psychiatric exam: PRESENT: appropriate affect, normal mood. ABSENT: homicidal ideation, suicidal ideation Skin exam: PRESENT: dry, erythema - b/l hands - site of soapy water injection, intact, warm, other - wound on either hand stemming from tap water injection. packed with iodoform, held together with suture. ABSENT: cyanosis, rash Results Laboratory Results: 09/28/18 04:12 09/28/18 04:12 Status: Imported from PACS Assessment and Plan - Diagnosis (1) Abscess of dorsum of left hand Is this a current diagnosis for this admission?: Yes Plan: Patient had incision and drainage of both hands by Dr. Cherry, orthopedic surgery on 09/19/2018. Cultures are growing enterococcus gallinarium Per ID, continue IV Unasyn for 10-14 days. Daily dressing changes and daily removal of approx. 3-5" iodoform from each hand until there is none left (per Dr. Cherry) (2) Abscess of dorsum of right hand Is this a current diagnosis for this admission?: Yes Plan: As above. 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 Lantus 10U Q12hr (4) Gram-positive cocci bacteremia Is this a current diagnosis for this admission?: Yes Plan: Patient had gram-positive cocci in 1 bottle. Culture grew Peptostreptococcus. Wound cultures grew the same. Patient does admit to injecting tap water and soap into both hands for attention seeking behavior. Repeat blood cultures are negative at 24 hrs. Patient is afebrile and nontoxic appearing ID consulted, recommend continuing Unasyn IV while inpatient and switching to amoxicillin PO when ready for discharge, total treatment for approx. 10-14 days (5) Hypertension Is this a current diagnosis for this admission?: Yes Plan: [facility] HTN Blood pressure well controlled Continue home dose metoprolol (6) Self-harming behavior Is this a current diagnosis for this admission?: Yes Plan: Patient admits to injecting tap water into dorsal part of both hands in response to depression/anxiety surrounding current malpractice suits filed against her PSYCH consulted, recommend continued IVC Plan to send back to inpatient PSYCH following [facility] hospitalization One-to-one sitter for safety - Time Time Spent with patient: 15-24 minutes Medications reviewed and adjusted accordingly: Yes Anticipated discharge: Home - Inpatient Certification Based on my medical assessment, after consideration of the patient's comorbidities, presenting symptoms, or acuity I expect that the services needed warrant INPATIENT care.: Yes I certify that my determination is in accordance with my understanding of Medicare's requirements for reasonable and necessary INPATIENT services [42 CFR 412.3e].: Yes Medical Necessity: Need for IV Antibiotics, Risk of Complication if Not Cared For in Hospital
[2018-09-30] MEDS: ZOLPIDEM TARTRATE 5 MG TABLET PO SCH (22:49)
[2018-09-30] MEDS: MELATONIN 3 MG TABLET PO SCH (22:53)
[2018-10-01] MEDS: HEPARIN SOD (PORCINE) 5,000 UNIT/ML 1 ML SYRINGE SUBCUT SCH ×3 (06:27→21:13)
--- NOTE | 2018-10-01 06:27 | PDOC PROGRESS REPORT ---
Subjective Progress Note for:: 10/01/18 Reason For Visit: DIABETES HAND CELLULITIS BIPOLAR Unable to arouse the patient verbally this morning. Resting comfortably. Bilateral upper extremity dressings in place. Physical Exam Vital Signs: Temp Pulse Resp BP Pulse Ox 36.6 C 62 16 138/57 H 95 09/30/18 23:18 09/30/18 23:18 09/30/18 23:18 09/30/18 23:18 09/30/18 23:18 Intake & Output 09/29/18 09/30/18 10/01/18 06:59 06:59 06:59 Intake Total 555 1245 850 Balance 555 1245 850 Weight 65.5 kg 65.5 kg 65.5 kg Results Laboratory Results: 09/28/18 04:12 09/28/18 04:12 09/26/18 05:30 Blood Blood Culture - Final NO GROWTH IN 5 DAYS 09/26/18 03:50 Blood Blood Culture - Final NO GROWTH IN 5 DAYS Status: Imported from PACS Assessment & Plan - Diagnosis (1) Abscess of dorsum of left hand Is this a current diagnosis for this admission?: Yes Plan: Continue dressing changes and IV antibiotic therapy as long as the patient's in the hospital. Conversion to oral antibiotic therapy once the patient is discharged. (2) Abscess of dorsum of right hand Is this a current diagnosis for this admission?: Yes (3) Cellulitis of hand Is this a current diagnosis for this admission?: Yes - Time Time Spent with patient: 15-24 minutes Anticipated discharge: Other Within: Other
[2018-10-01] MEDS: AMPICILLIN SODIUM/SULBACTAM NA 3 GM in NORMAL SALINE 100 ML IV SCH ×2 (06:30→12:25)
[2018-10-01] MEDS: INSULIN LISPRO 100 UNIT/ML 3 ML VIAL SUBCUT SCH ×4 (08:07→21:32)
[2018-10-01] MEDS: INSULIN GLARGINE,HUM.REC.ANLOG 1,000 UNIT/10 ML VIAL SUBCUT SCH ×2 (09:57→21:33)
[2018-10-01] MEDS: DULOXETINE HCL 30 MG CAPSULE.DR PO SCH (09:57)
[2018-10-01] MEDS: PANTOPRAZOLE SODIUM 40 MG TABLET.DR PO SCH (09:57)
[2018-10-01] MEDS: DOCUSATE SODIUM 100 MG CAPSULE PO SCH ×2 (09:58→17:52)
[2018-10-01] MEDS: METOPROLOL TARTRATE 50 MG TABLET PO SCH ×2 (09:58→21:14)
[2018-10-01] MEDS: ARIPIPRAZOLE 5 MG TABLET PO SCH (09:58)
[2018-10-01] MEDS: MELATONIN 3 MG TABLET PO SCH (21:14)
[2018-10-01] MEDS ORDERED: ZOLPIDEM TARTRATE 5 MG TABLET PO PRN (21:52)
[2018-10-02] MEDS: HEPARIN SOD (PORCINE) 5,000 UNIT/ML 1 ML SYRINGE SUBCUT SCH ×3 (05:03→21:02)
--- NOTE | 2018-10-02 07:58 | PDOC PROGRESS REPORT ---
Subjective Progress Note for:: 10/02/18 Subjective:: Patient lying in bed comfortably. No issues overnight. Denies fever chills or sweats. Pain controlled. Does note her pain and range of motion notably improved. Reason For Visit: DIABETES HAND CELLULITIS BIPOLAR Physical Exam Vital Signs: Temp Pulse Resp BP Pulse Ox 98.5 F 66 16 128/62 H 96 10/01/18 19:27 10/01/18 19:27 10/01/18 19:27 10/01/18 19:27 10/01/18 19:27 Intake & Output 10/01/18 10/02/18 10/03/18 06:59 06:59 06:59 Intake Total 1270 1170 Output Total 80 40 Balance 1190 1130 Weight 65.5 kg 65.6 kg Musculoskeletal exam: PRESENT: other - Bilateral hands: Mild serosanguineous drainage from the right hand. Devious erythema significantly improved. Minimal residual swelling. Patient able to make full composite fist without discomfort. No streaking erythema. Results Laboratory Results: 09/28/18 04:12 09/28/18 04:12 09/26/18 05:30 Blood Blood Culture - Final NO GROWTH IN 5 DAYS 09/26/18 03:50 Blood Blood Culture - Final NO GROWTH IN 5 DAYS Assessment & Plan - Diagnosis (1) Abscess of dorsum of left hand Is this a current diagnosis for this admission?: Yes Plan: Status post irrigation debridement bilateral hands 1. Nursing staff will continue daily dressing changes as per Dr. Cherry 2. Unasyn IV as per hospitalist recommendation. 3. Discharge planning as per hospitalist/psychiatry, patient stable for discharge from an orthopedic perspective (2) Abscess of dorsum of right hand Is this a current diagnosis for this admission?: Yes
[2018-10-02] MEDS: INSULIN LISPRO 100 UNIT/ML 3 ML VIAL SUBCUT SCH ×4 (08:01→21:06)
[2018-10-02] MEDS: DOCUSATE SODIUM 100 MG CAPSULE PO SCH ×2 (10:20→17:02)
[2018-10-02] MEDS: DULOXETINE HCL 30 MG CAPSULE.DR PO SCH (10:20)
[2018-10-02] MEDS: ARIPIPRAZOLE 5 MG TABLET PO SCH (10:20)
[2018-10-02] MEDS: PANTOPRAZOLE SODIUM 40 MG TABLET.DR PO SCH (10:20)
[2018-10-02] MEDS: METOPROLOL TARTRATE 50 MG TABLET PO SCH ×2 (10:20→21:01)
[2018-10-02] MEDS: INSULIN GLARGINE,HUM.REC.ANLOG 1,000 UNIT/10 ML VIAL SUBCUT SCH ×2 (10:21→21:06)
[2018-10-02] MEDS ORDERED: AMPICILLIN SOD/SULBACTAM 3 GM VIAL IV SCH (12:00)
[2018-10-02] MEDS ORDERED: ZOLPIDEM TARTRATE 5 MG TABLET PO PRN (12:57)
--- NOTE | 2018-10-02 13:11 | PDOC PROGRESS REPORT ---
Subjective Progress Note for:: 10/02/18 Subjective:: 58 y.o. F with a PMH of HTN, GERD, depression and anxiety. She was admitted for reportedly injecting the dorsal part of her hands with tap water. She is admitted to the hospitalist service with ortho consulting. Psych is also consulted, the patient remains under IVC. The patient was seen this morning on rounds. She appears to be in good spirits. is at the bedside. The patient reports that she does not wish to return to [place] for inpatient psych. She states that the patient population there is very young and make her feel uncomfortable. She would rather go to a facility in [place]. Patient began having visual hallucinations yesterday, she thought she was seeing her daughter's boyfriend in the room. Additionally, staff states that the patient walked out into the hallway as if she were looking for someone but could not verbalize who. When asked the patient about this episode, she states she did not remember it, she also states that it "could be the Ambien."Discussed these findings with psych liaison, Star. She recommends initiating antipsychotics, will discuss with Dr. Mcneal prior to making recommendations. In the meantime, will decrease Ambien dosage from 10 mg nightly to 5 mg nightly. Reason For Visit: DIABETES HAND CELLULITIS BIPOLAR Physical Exam Vital Signs: Temp Pulse Resp BP Pulse Ox 97.7 F 58 L 18 149/77 H 100 10/02/18 08:16 10/02/18 08:16 10/02/18 08:16 10/02/18 08:16 10/02/18 08:16 Intake & Output 10/01/18 10/02/18 10/03/18 06:59 06:59 06:59 Intake Total 1270 1170 Output Total 80 40 Balance 1190 1130 Weight 65.5 kg 65.6 kg General appearance: PRESENT: no acute distress, well-developed, well-nourished Head exam: PRESENT: atraumatic, normocephalic Eye exam: PRESENT: conjunctiva pink, EOMI, PERRLA. ABSENT: scleral icterus Ear exam: PRESENT: normal external ear exam Mouth exam: PRESENT: moist, tongue midline Teeth exam: PRESENT: poor dentation Neck exam: ABSENT: carotid bruit, JVD, lymphadenopathy, thyromegaly Respiratory exam: PRESENT: clear to auscultation tania, symmetrical, unlabored. ABSENT: rales, rhonchi, wheezes Cardiovascular exam: PRESENT: RRR. ABSENT: diastolic murmur, rubs, systolic murmur Pulses: PRESENT: normal radial pulses, normal dorsalis pedis pul Vascular exam: PRESENT: normal capillary refill GI/Abdominal exam: PRESENT: normal bowel sounds, soft. ABSENT: distended, guarding, mass, organolmegaly, rebound, tenderness Rectal exam: PRESENT: deferred Extremities exam: PRESENT: full ROM. ABSENT: calf tenderness, clubbing, pedal edema Neurological exam: PRESENT: alert, awake, oriented to person, oriented to place, oriented to time, oriented to situation Psychiatric exam: PRESENT: unusual affect. ABSENT: homicidal ideation, suicidal ideation Skin exam: PRESENT: dry, intact, warm. ABSENT: cyanosis, rash Results Laboratory Results: 09/28/18 04:12 09/28/18 04:12 Status: Imported from PACS Assessment and Plan - Diagnosis (1) Abscess of dorsum of left hand Is this a current diagnosis for this admission?: Yes Plan: S/p injection of tap water into the dorsal surface area of both hands Patient had incision and drainage of both hands by Dr. Cherry, orthopedic surge on 09/19/2018. Cultures are growing enterococcus gallinarium Per ID, continue IV Unasyn for 10-14 days. Daily dressing changes and daily removal of approx. 3-5" iodoform from each hand until there is none left (per Dr. Cherry) (2) Abscess of dorsum of right hand Is this a current diagnosis for this admission?: Yes Plan: As above. (3) Diabetes Qualifiers: Diabetes mellitus type: type 2 Diabetes mellitus shelter insulin use: without shelter use Diabetes mellitus complication status: without complication Qualified Code(s): E11.9 - Type 2 diabetes mellitus without complications Is this a current diagnosis for this admission?: Yes Plan: [facility] diabetes type 2 Hemoglobin A1c 6.1% Hold metformin and Toujeo Accu-Cheks before meals and at bedtime with Humalog for sliding scale coverage. Lantus 10U Q12hr (4) Gram-positive cocci bacteremia Is this a current diagnosis for this admission?: Yes Plan: Patient had gram-positive cocci in 1 bottle. Culture grew Peptostreptococcus. Wound cultures grew the same. Patient does admit to injecting tap water and soap into both hands for attention seeking behavior. Repeat blood cultures are negative at 5 days. Patient is afebrile and nontoxic appearing ID consulted, recommend continuing Unasyn IV while inpatient and switching to amoxicillin PO when ready for discharge, total treatment for approx. 14 days. Currently on day 9. (5) Hypertension Is this a current diagnosis for this admission?: Yes Plan: [facility] HTN Blood pressure well controlled Continue home dose metoprolol (6) Self-harming behavior Is this a current diagnosis for this admission?: Yes Plan: Patient admits to injecting tap water into dorsal surface of both hands in response to depression/anxiety surrounding current malpractice suits filed against her PSYCH consulted, recommend continued IVC Plan to send back to inpatient PSYCH following [facility] hospitalization One-to-one sitter for safety - Time Time Spent with patient: 15-24 minutes Medications reviewed and adjusted accordingly: Yes Anticipated discharge: Other - INPATIENT PSYCH - Inpatient Certification Based on my medical assessment, after consideration of the patient's comorbidities, presenting symptoms, or acuity I expect that the services needed warrant INPATIENT care.: Yes I certify that my determination is in accordance with my understanding of Medicare's requirements for reasonable and necessary INPATIENT services [42 CFR 412.3e].: Yes Medical Necessity: Need for IV Antibiotics, Risk of Complication if Not Cared For in Hospital - Plan Summary Plan Summary: WAITING FOR MEDICATION RECOMMENDATIONS FROM PSYCH
[2018-10-02] MEDS: AMPICILLIN SODIUM/SULBACTAM NA 3 GM in NORMAL SALINE 100 ML IV SCH ×2 (13:22→17:02)
[2018-10-02] MEDS: MELATONIN 3 MG TABLET PO SCH (21:01)
[2018-10-03] MEDS: AMPICILLIN SODIUM/SULBACTAM NA 3 GM in NORMAL SALINE 100 ML IV SCH ×5 (00:25→23:53)
[2018-10-03] MEDS: HEPARIN SOD (PORCINE) 5,000 UNIT/ML 1 ML SYRINGE SUBCUT SCH ×3 (05:53→23:53)
[2018-10-03] MEDS: INSULIN LISPRO 100 UNIT/ML 3 ML VIAL SUBCUT SCH ×4 (08:01→23:51)
[2018-10-03] MEDS: DOCUSATE SODIUM 100 MG CAPSULE PO SCH ×2 (09:40→17:26)
[2018-10-03] MEDS: INSULIN GLARGINE,HUM.REC.ANLOG 1,000 UNIT/10 ML VIAL SUBCUT SCH (09:40)
[2018-10-03] MEDS: ARIPIPRAZOLE 5 MG TABLET PO SCH (09:40)
[2018-10-03] MEDS: METOPROLOL TARTRATE 50 MG TABLET PO SCH ×2 (09:40→23:52)
[2018-10-03] MEDS: DULOXETINE HCL 30 MG CAPSULE.DR PO SCH (09:40)
[2018-10-03] MEDS: PANTOPRAZOLE SODIUM 40 MG TABLET.DR PO SCH (09:41)
[2018-10-03 12:49] LABS: HEMATOCRIT 35.8 % (36.0-47.0); HEMOGLOBIN 11.6 g/dL (12.0-15.5); MEAN CORPUSCULAR HEMOGLOBIN 26.3 pg (27.0-33.4); MEAN CORPUSCULAR HGB CONC 32.3 g/dL (32.0-36.0); MEAN CORPUSCULAR VOLUME 81 fl (80-97); PLATELET COUNT 443 10^3/uL (150-450); RED CELL DISTRIBUTION WIDTH 16.8 % (11.5-14.0); WHITE BLOOD COUNT 6.8 10^3/uL (4.0-10.5)
[2018-10-03 13:13] LABS: ALANINE AMINOTRANSFERASE 20 U/L (9-52); ALKALINE PHOSPHATASE 53 U/L (38-126); ANION GAP 8 (5-19); ASPARTATE AMINO TRANSFERASE 12 U/L (14-36); BILIRUBIN,DIRECT 0.3 mg/dL (0.0-0.4); BILIRUBIN,TOTAL 0.3 mg/dL (0.2-1.3); BLOOD UREA NITROGEN 6 mg/dL (7-20); CALCIUM 8.8 mg/dL (8.4-10.2); CARBON DIOXIDE 29 mmol/L (22-30); CHLORIDE 103 mmol/L (98-107); GLUCOSE 209 mg/dL (75-110); POTASSIUM 3.6 mmol/L (3.6-5.0); SODIUM 140.1 mmol/L (137-145); TOTAL PROTEIN 5.3 g/dL (6.3-8.2)
--- NOTE | 2018-10-03 18:04 | PDOC PROGRESS REPORT ---
Subjective Progress Note for:: 10/03/18 Subjective:: 58 y.o. F with a PMH of HTN, GERD, depression and anxiety. She was admitted for reportedly injecting the dorsal part of her hands with tap water. She is admitted to the hospitalist service with ortho consulting. Psych is also consulted, the patient remains under IVC. The patient was seen on morning rounds. She was found sitting up comfortably in the chair on room air. 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 She does seem to have tangential thinking today; jumping from her hand discomfort, to her desire to be discharged, to talking about [employer]. She denies fever, chills, chest pain, palpitations, dyspnea, orthopnea, cough, abdominal pain, nausea vomiting and diarrhea. No concerns per nursing. Did discuss with the mental health team; have recommended continued IVC status with medication adjustments (see below) Reason For Visit: DIABETES HAND CELLULITIS BIPOLAR Physical Exam Vital Signs: Temp Pulse Resp BP Pulse Ox 98.7 F 62 18 122/66 96 10/03/18 17:15 10/03/18 17:15 10/03/18 17:15 10/03/18 17:15 10/03/18 17:15 Intake & Output 10/02/18 10/03/18 10/04/18 06:59 06:59 06:59 Intake Total 1170 1079 100 Output Total 40 Balance 1130 1079 100 Weight 65.6 kg 65.6 kg General appearance: PRESENT: no acute distress, well-developed, well-nourished Head exam: PRESENT: atraumatic, normocephalic Eye exam: PRESENT: conjunctiva pink, EOMI, PERRLA. ABSENT: scleral icterus Ear exam: PRESENT: normal external ear exam Mouth exam: PRESENT: moist, tongue midline Neck exam: ABSENT: carotid bruit, JVD, lymphadenopathy, thyromegaly Respiratory exam: PRESENT: clear to auscultation tania, symmetrical, unlabored. ABSENT: rales, rhonchi, wheezes Cardiovascular exam: PRESENT: RRR, +S1, +S2. ABSENT: diastolic murmur, rubs, systolic murmur Pulses: PRESENT: normal dorsalis pedis pul Vascular exam: PRESENT: normal capillary refill GI/Abdominal exam: PRESENT: normal bowel sounds, soft. ABSENT: distended, guarding, mass, organolmegaly, rebound, tenderness Rectal exam: PRESENT: deferred Extremities exam: PRESENT: full ROM. ABSENT: calf tenderness, clubbing, pedal edema Neurological exam: PRESENT: alert, awake, oriented to person, oriented to place, oriented to time, oriented to situation, CN II-XII grossly intact. ABSENT: motor sensory deficit Psychiatric exam: PRESENT: appropriate affect, normal mood. ABSENT: homicidal ideation, suicidal ideation Focused psych exam: PRESENT: flight of ideas Skin exam: PRESENT: dry, warm, other - Incisions to bilateral hands not visualized; dressing in place with serous drainage noted. ABSENT: cyanosis, rash Results Laboratory Results: 10/03/18 12:34 10/03/18 12:34 10/03/18 10/03/18 10/03/18 12:34 12:34 12:34 WBC 6.8 RBC 4.40 Hgb 11.6 L Hct 35.8 L MCV 81 MCH 26.3 L MCHC 32.3 RDW 16.8 H Plt Count 443 Sodium 140.1 Potassium 3.6 Chloride 103 Carbon Dioxide 29 Anion Gap 8 BUN 6 L Creatinine 0.56 Est GFR ( Amer) > 60 Est GFR (Non-Af Amer) > 60 Glucose 209 H Calcium 8.8 Total Bilirubin 0.3 AST 12 L ALT 20 Alkaline Phosphatase 53 Ammonia < 8.7 L Total Protein 5.3 L Albumin 3.0 L Assessment and Plan - Diagnosis (1) Abscess of dorsum of left hand Is this a current diagnosis for this admission?: Yes Plan: S/p injection of tap water into the dorsal surface area of both hands Patient had incision and drainage of both hands by Dr. Cherry, orthopedic [facility] on 09/19/2018. Cultures are growing enterococcus gallinarium Per ID, continue IV Unasyn for 10-14 days; day #10 Daily dressing changes and daily removal of approx. 3-5" iodoform from each hand until there is none left (per Dr. Cherry) (2) Abscess of dorsum of right hand Is this a current diagnosis for this admission?: Yes Plan: As above. (3) Depression Is this a current diagnosis for this admission?: Yes Plan: Mental health consult has been placed; recommends IVC status. Medications adjustments per their recommendations today. Decrease Cymbalta to day x7 days, then discontinue. Discontinue Abilify. Discontinue Ambien. Start Zyprexa 5 mg nightly. (4) Self-harming behavior Is this a current diagnosis for this admission?: Yes Plan: Patient admits to injecting tap water into dorsal surface of both hands in response to depression/anxiety surrounding current malpractice suits filed against her PSYCH consulted, recommend continued IVC Plan to send back to inpatient PSYCH following [facility] hospitalization; discussed with psychiatry today. Patient can return to [facility] once there is no longer packing in wounds. 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 Lantus 10U Q12hr (6) Hypertension Is this a current diagnosis for this admission?: Yes Plan: [facility] HTN Blood pressure well controlled Continue home dose metoprolol (7) Hypokalemia Is this a current diagnosis for this admission?: Yes Plan: Replete and monitor (8) Gram-positive cocci bacteremia Is this a current diagnosis for this admission?: Yes Plan: Patient had gram-positive cocci in 1 bottle. Culture grew Peptostreptococcus. Wound cultures grew the same. Patient does admit to injecting tap water and soap into both hands for attention seeking behavior. Repeat blood cultures are negative at 5 days. Patient is afebrile and nontoxic appearing ID consulted, recommend continuing Unasyn IV while inpatient and switching to amoxicillin PO when ready for discharge, total treatment for approx. 14 days. Currently on day 10. - Time Medications reviewed and adjusted accordingly: Yes Anticipated discharge: Other - [facility] Within: Other - Once packing material is removed from wounds (1"/daily; total 3- 5" per Dr Cherry); anticipate ready within 1-3 days.
[2018-10-03] MEDS: MELATONIN 3 MG TABLET PO SCH (23:52)
[2018-10-03] MEDS: OLANZAPINE 5 MG TABLET PO SCH (23:53)
[2018-10-04] MEDS: INSULIN GLARGINE,HUM.REC.ANLOG 1,000 UNIT/10 ML VIAL SUBCUT SCH ×3 (00:03→22:08)
[2018-10-04] MEDS: HEPARIN SOD (PORCINE) 5,000 UNIT/ML 1 ML SYRINGE SUBCUT SCH ×3 (05:24→22:03)
[2018-10-04] MEDS: AMPICILLIN SODIUM/SULBACTAM NA 3 GM in NORMAL SALINE 100 ML IV SCH ×4 (05:24→23:32)
[2018-10-04] MEDS: INSULIN LISPRO 100 UNIT/ML 3 ML VIAL SUBCUT SCH ×4 (08:24→22:07)
[2018-10-04] MEDS: METOPROLOL TARTRATE 50 MG TABLET PO SCH ×2 (10:31→22:07)
[2018-10-04] MEDS: PANTOPRAZOLE SODIUM 40 MG TABLET.DR PO SCH (10:31)
[2018-10-04] MEDS: DULOXETINE HCL 30 MG CAPSULE.DR PO SCH (10:31)
[2018-10-04] MEDS: DOCUSATE SODIUM 100 MG CAPSULE PO SCH ×2 (10:31→17:19)
--- NOTE | 2018-10-04 16:08 | PSYCHOLOGICAL NOTE ---
Psych Note - Psych Note Date seen by psych provider: 10/04/18 Time seen by psych provider: 15:15 - Chart review at 1515. Spoke to attending nurse via telephone at 1530. Psych Note: Reason fro Consult: IVC, SI attempt Contact Permissions: Patient is a 58 year old female admitted to hospitalist services after injecting dirty water into her hands which required surgery and then she picked at her hands which caused increased bacteria infection. She has minimized the severity of her self injury. Hospitalist progress note from 10/03/18 documented tangential thinking (discussing hand discomfort, desire for discharge, [employer] marathon) and had continued stay criteria/problems of abscess of dorsum left hand, abscess of dorsum of right hand, depression, self harm behavior, diabetes, HTN, hypokalemia, and gram-positive cocci bacteremia. Medication recommen dations/changes from [facility] Behavioral Health on about 10/03/18 consisted of discontinued Ambien and Abilify, decreasing Cymbalta to 30MG QD for 7 days then discontinue and added Zyprexa 5MG QHS. MAR indicated Melatonin 3MG QHS was added 10/04/18. Spoke to attending nurse vie telephone. She stated patient was doing well today, there was no increased confusion, similar to yesterday, hand dressings changed and look good. She stated overnight nurse noted patient did not get to sleep as quickly and didn't hit as hard with the change of medication. She noted patient still did sleep though. Diagnosis: Self Harm which resulted in need for medical hospitalization 296.80 (F31.9) Unspecified Bipolar and Related Disorder Impression/Plan: Recommendation to maintain IVC given significant self harm attempt and patient minimizing severity. Waiting for wounds to heal so that there is topical bandages only. Then [facility] will take patient back after a new referral is sent. If they are full will seek placement at other [facility]. Patient and aware. Will do a face to face evaluation tomorrow. Consulted with Dr. Mcneal regarding the management and care of patient. Attending Hospitalist aware of recommendations.
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
[2018-10-04] MEDS: MELATONIN 3 MG TABLET PO SCH (22:07)
[2018-10-04] MEDS: OLANZAPINE 5 MG TABLET PO SCH (22:07)
[2018-10-05] MEDS: HEPARIN SOD (PORCINE) 5,000 UNIT/ML 1 ML SYRINGE SUBCUT SCH (05:30)
[2018-10-05] MEDS: AMPICILLIN SODIUM/SULBACTAM NA 3 GM in NORMAL SALINE 100 ML IV SCH (05:30)
--- NOTE | 2018-10-05 06:55 | PDOC PROGRESS REPORT ---
Subjective Progress Note for:: 10/05/18 Reason For Visit: DIABETES HAND CELLULITIS BIPOLAR 58-year-old white female status post of inflicted abscesses both hands. Physical Exam Vital Signs: Temp Pulse Resp BP Pulse Ox 36.7 C 51 L 16 129/60 H 98 10/05/18 00:04 10/05/18 00:04 10/05/18 00:04 10/05/18 00:04 10/05/18 00:04 Intake & Output 10/03/18 10/04/18 10/05/18 06:59 06:59 06:59 Intake Total 8215 996 1085 Balance 5001 670 1730 Weight 65.6 kg 65.5 kg 66.8 kg General appearance: PRESENT: no acute distress Extremities exam: PRESENT: other - Both hand dressings are taken down. Residual packing is removed. Sutures removed. Compressive dressing applied. Results Laboratory Results: 10/03/18 12:34 10/03/18 12:34 Assessment & Plan - Diagnosis (1) Abscess of dorsum of left hand Is this a current diagnosis for this admission?: Yes Plan: Patient can continue with dry dressing changes/Band-Aids on a as needed basis. Follow-up in the office in 2 weeks. (2) Abscess of dorsum of right hand Is this a current diagnosis for this admission?: Yes (3) Cellulitis of hand Is this a current diagnosis for this admission?: Yes
[2018-10-05] MEDS: INSULIN LISPRO 100 UNIT/ML 3 ML VIAL SUBCUT SCH ×2 (08:18→11:45)
[2018-10-05 08:36] VITALS: BP 155/68
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
[2018-10-05] MEDS: DOCUSATE SODIUM 100 MG CAPSULE PO SCH (10:14)
[2018-10-05] MEDS: DULOXETINE HCL 30 MG CAPSULE.DR PO SCH (10:15)
[2018-10-05] MEDS: METOPROLOL TARTRATE 50 MG TABLET PO SCH (10:15)
[2018-10-05] MEDS: INSULIN GLARGINE,HUM.REC.ANLOG 1,000 UNIT/10 ML VIAL SUBCUT SCH (10:16)
[2018-10-05] MEDS: PANTOPRAZOLE SODIUM 40 MG TABLET.DR PO SCH (10:16)
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
== END 2018-10-05 12:25 | disposition other institution (70) | DRG 982 ==
LOC: ER 16:27 → EH 23:01 → 5 09-23 16:36
PROVIDERS: ADMIT Internal Medicine; ATTEND Internal Medicine
PROC: 0JDK0ZZ Extraction of Left Hand Subcutaneous Tissue and Fascia, Open Approach (ICD-10-PCS; 2018-09-22)
PROC: 0H9GXZZ Drainage of Left Hand Skin, External Approach (ICD-10-PCS; 2018-09-22)
PROC: 0JDJ0ZZ Extraction of Right Hand Subcutaneous Tissue and Fascia, Open Approach (ICD-10-PCS; principal; 2018-09-23 15:15)
DX: L02.512 Cutaneous abscess of left hand (principal); L02.511 Cutaneous abscess of right hand; L03.114 Cellulitis of left upper limb; L03.113 Cellulitis of right upper limb; E87.6 Hypokalemia; I10 Essential (primary) hypertension; F32.9 Major depressive disorder, single episode, unspecified; E11.9 Type 2 diabetes mellitus without complications; F41.9 Anxiety disorder, unspecified; Z91.5 Personal history of self-harm; B95.4 Other streptococcus as the cause of diseases classified elsewhere; B96.3 Hemophilus influenzae [H. influenzae] as the cause of diseases classified elsewhere; B95.2 Enterococcus as the cause of diseases classified elsewhere; K21.9 Gastro-esophageal reflux disease without esophagitis; Z79.4 Long term (current) use of insulin
CPT/HCPCS: 00400; 36415; 80048; 80053; 80202; 80307; 82140; 82962; 83036; 83735; 84439; 84443; 84481; 85025; 85027; 87040; 87070; 87075; 87077; 87186; 87205; 93005; 93010; 96361; 96365; 96375; 96376; 99284; J0295; J0330; J1100; J1644; J1815; J2250; J2270; J2405; J2543; J2704; J3010; J3370; J3490; J7030; J7050; J7060; J7120

== ENCOUNTER 2018-11-02 08:50 | Day surgery (SDC) | payer BC ==
[~2018-11-02 08:50] MED LIST changes: +BACITRACIN INJ 50,000 UNIT VIAL ONE; +CEFAZOLIN 2 GM/D5W RTU 2 GM/50 ML RTUPB IV ONE; +CEFAZOLIN 2 GM/D5W RTU 2 GM/50 ML RTUPB IV PRN; -DEXAMETHASONE SOD PHOSPHATE INJ 4 MG/1 ML VIAL ONE; -ONDANSETRON HCL INJ/PF 4 MG/2 ML SDV ONE; -SUCCINYLCHOLINE CHLORIDE INJ 200 MG/10 ML VIAL ONE
--- NOTE | 2018-11-02 09:46 | RADIOLOGY REPORT (SQ) ---
EXAM DESCRIPTION: CHEST SINGLE VIEW COMPLETED DATE/TIME: 11/02/2018 9:21 am REASON FOR STUDY: pre op COMPARISON: None. NUMBER OF VIEWS: One view. TECHNIQUE: Single frontal radiographic view of the chest acquired. LIMITATIONS: None. FINDINGS: LUNGS AND PLEURA: No opacities, masses or pneumothorax. No pleural effusion. MEDIASTINUM AND HILAR STRUCTURES: No masses. Contour normal. HEART AND VASCULAR STRUCTURES: Heart normal in size. Normal vasculature. BONES: No acute findings. HARDWARE: None in the chest. OTHER: No other significant finding. IMPRESSION: NO SIGNIFICANT RADIOGRAPHIC FINDING IN THE CHEST. TECHNICAL DOCUMENTATION: JOB ID: [id number] [employer]- All Rights Reserved Reading location - IP/workstation name: [email or web address]
[2018-11-02] MEDS ORDERED: FENTANYL CITRATE INJ/PF 100 MCG/2 ML AMPUL ONE (09:47)
[2018-11-02] MEDS ORDERED: PROPOFOL INJ 200 MG/20 ML VIAL IV ONE (09:47)
[2018-11-02] MEDS ORDERED: DEXAMETHASONE SOD PHOSPHATE INJ 4 MG/1 ML VIAL ONE (09:47)
[2018-11-02] MEDS ORDERED: MIDAZOLAM 2 MG/2 ML INJ ONE (09:47)
[2018-11-02] MEDS ORDERED: ONDANSETRON HCL INJ/PF 4 MG/2 ML SDV ONE (09:47)
[2018-11-02 09:49] VITALS: BP 126/79
[2018-11-02 09:53] LABS: APPEARANCE,URINE SLIGHTLY-CLOUDY; BILIRUBIN,URINE NEGATIVE (NEGATIVE); COLOR,URINE YELLOW; GLUCOSE, URINE >=500 mg/dL (NEGATIVE); KETONES,URINE NEGATIVE (NEGATIVE); LEUKOCYTE ESTERASE,URINE NEGATIVE (NEGATIVE); NITRITE,URINE NEGATIVE (NEGATIVE); PROTEIN,URINE NEGATIVE (NEGATIVE); URINE SPECIFIC GRAVITY 1.017; UROBILINOGEN,URINE NEGATIVE mg/dL (<2.0)
--- NOTE | 2018-11-04 06:52 | Discharge Summary ---
Discharge Summary (SDC) - Discharge Final Diagnosis: Retained foreign body right dorsal hand. Discharge Date: 11/04/18 Condition: Good Treatment or Instructions: Patient is a 58-year-old white female with retained foreign body in the dorsum o f the right hand. Patient presents for surgical removal of the foreign body. She is evaluated in the preop area and the iodoform packing is easily identified in the wound. This is removed in the preoperative area uneventfully. A dry dressing was placed. Subsequent surgery is canceled because of the easily removable foreign body. Patient will keep a dry dressing to right hand wound Referrals: RE RODRIGUEZ PA-C [Primary Care Provider] - Discharge Diet: As Tolerated, Regular Respiratory Treatments at Home: Deep Breathing/Coughing Discharge Activity: Activity As Tolerated, No tub bath Home Care Assistance: None Needed Report the Following to Your Physician Immediately: Shortness of Breath, Fever over 101 Degrees, Drainage-Foul Smelling
== END 2018-11-02 10:00 | disposition home or self-care (01) ==
LOC: OROUT 08:50
PROVIDERS: ATTEND Orthopaedic Surgery
DX: L02.519 Cutaneous abscess of unspecified hand (principal); E11.9 Type 2 diabetes mellitus without complications; I10 Essential (primary) hypertension; Z79.899 Other long term (current) drug therapy; Z79.84 Long term (current) use of oral hypoglycemic drugs; Z53.9 Procedure and treatment not carried out, unspecified reason
CPT/HCPCS: 36415; 82962; 84132; 81001; 71045; J2250; J3490; J1100; J3010; J2405; J2704; J0690